=== PATIENT | female | born 1975 | race Caucasian/White ===

== ENCOUNTER 2018-01-29 19:37 | Inpatient (IN) | payer BC ==
[~2018-01-29] VITALS: Ht 170.2 cm; Wt 104.3 kg
[~2018-01-29 19:37] MED LIST: CAND32TA2 PO; CLON0.5T11 PO; CRESTOR10 MG PO; ELET20TA PO; INSU100I13 SQ; METO10TA81 PO; PREG50CA PO; QUIN1TAB13 PO; QUIN20TA17 PO; SERT50TA PO; WARF-78 PO
[2018-01-29 20:13] LABS: BILIRUBIN,URINE NEGATIVE (NEG); CLARITY,URINE CLEAR; COLOR,URINE YELLOW; NITRITE,URINE NEGATIVE (NEG); PROTEIN,URINE NEGATIVE (NEG-TRACE); UROBILINOGEN,URINE 0.2 mg/dL (0.2 mg/dL)
[2018-01-29] MEDS ORDERED: fentaNYL PF VIAL 100 MCG/2 ML VIAL IV ONE (20:15)
[2018-01-29 20:21] LABS: BACTERIA,URINE FEW /HPF (0-FEW); RBC,URINE 0 /HPF (0-2); SQUAMOUS EPITHELIAL CELL,UR MOD /LPF; WBC,URINE 0 /HPF (0-4)
--- NOTE | 2018-01-29 20:23 | PHYS DOC ---
Past Medical History Past Medical History: Diabetes-Type II, DVT, Hypertension Additional Past Medical Histor: PE/DVT, HEART MURMUR, Past Surgical History: Cholecystectomy, Tubal ligation Additional Past Surgical Histo: OVARIAN CYST,BILAT EARS,LEAP, LYMP NODES Alcohol Use: None Drug Use: None Adult General Chief Complaint Chief Complaint: ABDOMINAL PAIN HPI HPI Patient is a 42 year old female history of factor V Leiden deficiency present with abdominal pain. Onset 2 days ago she fell down 10 steps she went to [facility] her INR was 10.5 she is on Coumadin they give her vitamin K came down to 7.5 she says she had a CT head and CT C-spine that was negative acute and they observed her overnight and then sent her home but her abdominal pain is described as cramping diffuse bilateral lower quadrant radiates to the back also some pain with moving her left hip she said they did not do a CT scan on that area despite she did tell them she was having abdominal pain. The pain is getting worse with time so she came to the ER for evaluation. Review of Systems Review of Systems Constitutional: Denies fever or chills [] Eyes: Denies change in visual acuity, redness, or eye pain [] HENT: Denies nasal congestion or sore throat [] Respiratory: Denies cough or shortness of breath [] Cardiovascular: No additional information not addressed in HPI [] : Denies dysuria or hematuria [] Musculoskeletal Integument: Denies rash or skin lesions [] All other systems were reviewed and found to be within normal limits, except as documented in this note. Current Medications Current Medications Current Medications Medications (Trade) Dose Ordered Sig/Ricardo Start Time Stop Time Status Last Admin Dose Admin Fentanyl Citrate (Fentanyl 2ml Vial) 50 mcg 1X ONCE 01/29/18 20:15 01/29/18 20:16 DC 01/29/18 20:24 50 MCG Iohexol (Omnipaque 300 Mg/ml) 100 ml STK-MED ONCE 01/29/18 21:08 01/29/18 21:09 DC Metronidazole 100 ml @ 100 mls/hr 1X ONCE 01/29/18 22:30 01/29/18 23:29 01/29/18 23:04 100 MLS/HR Morphine Sulfate (Morphine Sulfate) 4 mg PRN Q2HR PRN 01/29/18 22:45 01/30/18 22:44 01/29/18 23:04 4 MG Phytonadione (Mephyton Oral Soln) 2.5 mg 1X ONCE 01/29/18 22:45 01/29/18 22:46 DC 01/29/18 23:05 2.5 MG Sodium Chloride 1,000 ml @ 100 mls/hr Q10H 01/29/18 22:45 01/30/18 22:44 Allergies Allergies Allergies Coded Allergies Type Severity Reaction Last Updated Verified acetaminophen Allergy Severe THROAT SWELLS 05/29/15 Yes propoxyphene Allergy Severe THROAT SWELLS 05/29/15 Yes Penicillins Allergy Intermediate HIVES 05/29/15 Yes Physical Exam Physical Exam Constitutional: Well developed, well nourished, no acute distress, non-toxic appearance. [] HENT: Normocephalic, atraumatic, bilateral external ears normal, oropharynx moist, no oral exudates, nose normal. [] Eyes: PERRLA, EOMI, conjunctiva normal, no discharge. [] Neck: Normal range of motion, left paraspinous tenderness, supple, no stridor. [ ] Cardiovascular:Heart rate regular rhythm, no murmur [] Lungs & Thorax: Bilateral breath sounds clear to auscultation [] Abdomen: Bowel sounds normal, soft,rlq and llq tenderness, no masses, no pulsatile masses. [] rectal performed by antique furniture reproducer showed brown stool. Skin: Warm, dry, no erythema, no rash. [] Back: pos b/l paraspinous ttp noted, no trauma seen. obese noted. Extremities: No tenderness, no cyanosis, no clubbing, ROM intact, no edema. [] mild pain with rom of the left hip but still intact. Neurologic: Alert and oriented X 3, normal motor function, normal sensory function, no focal deficits noted. [] Psychologic: Affect normal, judgement normal, mood normal. [] Current Patient Data Vital Signs Vital Signs Date Time Temp Pulse Resp B/P (MAP) Pulse Ox O2 Delivery O2 Flow Rate FiO2 01/29/18 20:07 98.2 92 20 167/114 (131) 97 Room Air 98.2 Lab Values Laboratory Tests Test 01/29/18 19:57 01/29/18 20:08 01/29/18 20:18 01/29/18 21:08 Urine Collection Type Unknown Urine Color Yellow Urine Clarity Clear Urine pH 5.0 Urine Specific [place] >=1.030 Urine Protein Negative mg/dL (NEG-TRACE) Urine Glucose (UA) >=1000 mg/dL (NEG) Urine Ketones (Stick) Negative mg/dL (NEG) Urine Blood Negative (NEG) Urine Nitrite Negative (NEG) Urine Bilirubin Negative (NEG) Urine Urobilinogen Dipstick 0.2 mg/dL (0.2 mg/dL) Urine Leukocyte Esterase Negative (NEG) Urine RBC 0 /HPF (0-2) Urine WBC 0 /HPF (0-4) Urine Squamous Epithelial Cells Mod /LPF Urine Bacteria Few /HPF (0-FEW) POC Urine HCG, Qualitative Hcg negative (Negative) White Blood Count 5.5 x10^3/uL (4.0-11.0) Red Blood Count 4.78 x10^6/uL (3.50-5.40) Hemoglobin 14.5 g/dL (12.0-15.5) Hematocrit 40.2 % (36.0-47.0) Mean Corpuscular Volume 84 fL (79-100) Mean Corpuscular Hemoglobin 30 pg (25-35) Mean Corpuscular Hemoglobin Concent 36 g/dL (31-37) Red Cell Distribution Width 13.3 % (11.5-14.5) Platelet Count 219 x10^3/uL (140-400) Neutrophils (%) (Auto) 60 % (31-73) Lymphocytes (%) (Auto) 31 % (24-48) Monocytes (%) (Auto) 7 % (0-9) Eosinophils (%) (Auto) 1 % (0-3) Basophils (%) (Auto) 1 % (0-3) Neutrophils # (Auto) 3.3 x10^3uL (1.8-7.7) Lymphocytes # (Auto) 1.7 x10^3/uL (1.0-4.8) Monocytes # (Auto) 0.4 x10^3/uL (0.0-1.1) Eosinophils # (Auto) 0.1 x10^3/uL (0.0-0.7) Basophils # (Auto) 0.1 x10^3/uL (0.0-0.2) Prothrombin Time 48.9 SEC (11.7-14.0) H Prothrombin Time INR 5.5 (0.8-1.1) *H Sodium Level 135 mmol/L (136-145) L Potassium Level 4.0 mmol/L (3.5-5.1) Chloride Level 99 mmol/L (98-107) Carbon Dioxide Level 25 mmol/L (21-32) Anion Gap 11 (6-14) Blood Urea Nitrogen 8 mg/dL (7-20) Creatinine 0.8 mg/dL (0.6-1.0) Estimated GFR (Cockcroft-Gault) 78.7 BUN/Creatinine Ratio 10 (6-20) Glucose Level 426 mg/dL (70-99) H Calcium Level 9.4 mg/dL (8.5-10.1) Total Bilirubin 0.2 mg/dL (0.2-1.0) Aspartate Amino Transferase (AST) 28 U/L (15-37) Alanine Aminotransferase (ALT) 63 U/L (14-59) H Alkaline Phosphatase 81 U/L (46-116) Total Protein 7.7 g/dL (6.4-8.2) Albumin 3.3 g/dL (3.4-5.0) L Albumin/Globulin Ratio 0.8 (1.0-1.7) L Lipase 183 U/L (73-393) Stool Occult Blood Positive (NEG) Laboratory Tests 01/29/18 20:18 Laboratory Tests 01/29/18 20:18 EKG EKG [] Radiology/Procedures Radiology/Procedures [] Impressions: FINDINGS: The liver and spleen and pancreas are normal. The gallbladder is surgically absent. No extra hepatic biliary ductal dilatation is seen. No adrenal mass is evident. Both kidneys are normal without hydronephrosis or hydroureter. Urinary bladder wall is smooth. No uterine mass is seen. No dominant ovarian cyst or mass is evident. No focal aneurysmal dilatation of the abdominal aorta is seen. No enlarged abdominal or pelvic lymphadenopathy is evident. No obstructive bowel pattern is evident. The terminal ileum is unremarkable. The appendix appears normal. There is segmental wall thickening of the descending colon and sigmoid colon. This may be due to incomplete distention but could be seen with colitis. No free intraperitoneal air or free fluid or mesenteric edema is seen. No lung base consolidation is evident. No osteolytic process is evident. No anterior abdominal wall musculature hematoma is evident. No retroperitoneal hematoma is evident. IMPRESSION: Segmental wall thickening of the descending colon and sigmoid colon. This may be due to incomplete distention but could be seen with colitis. No pneumatosis intestinalis or free air or free fluid or mesenteric edema is seen. The heart size mildly enlarged. Electronically signed by: Anurag Mosquera MD (01/29/2018 9:49 PM) [facility] 3. Use of iterative reconstruction technique Findings: No acute intracranial hemorrhage or midline shift or mass-effect or hydrocephalus or extra-axial fluid collection is seen. No focal hypodense area or sulci effacement is seen to indicate an acute infarct or edema radiographically. No skull fracture or pneumocephalus is seen. No opacification of the mastoid sinuses or the paranasal sinuses is seen. The maxillary sinuses are not completely seen in this study. Impression: No acute intracranial abnormality is seen. Electronically signed by: Anurag Mosquera MD (01/29/2018 9:09 PM) [facility] [id number] Course & Med Decision Making Course & Med Decision Making Pertinent Labs and Imaging studies reviewed. (See chart for details) []42-year-old female with history of factor V Leiden who is minor 5.5 apparently was 10.52 days ago she did fall down the stairs. She has been having abdominal pain since then but she also is having some bright red blood per rectum mixed in with brown stool she tells me. CT scan shows colitis most likely. Patient is hemodynamically stable hemoglobin is normal patient received antibiotics as well as a small dose of vitamin K in the emergency room because her INR is still 5.5 with her rectal bleeding even though mild I don't want to get worse. I think the benefit of a small amount of vitamin K especially in light of starting antibiotics which may affect her INR is beneficial. We'll admit to the service of Dr. jeter discussed case with him at 10:30 PM Tricia Disclaimer Tricia Disclaimer This electronic medical record was generated, in whole or in part, using a voice recognition dictation system. Departure Departure Impression: Primary Impression: Colitis Additional Impression: Coumadin toxicity Disposition: ADMITTED INPATIENT Admitting Physician: Other Condition: STABLE Referrals: UNKNOWN PCP NAME (PCP) Problem Qualifiers LAKESHIA KHAN MD Jan 29, 2018 20:23
[2018-01-29 20:29] LABS: BASO # 0.1 x10^3/uL (0.0-0.2); BASO % 1 % (0-3); EOS # 0.1 x10^3/uL (0.0-0.7); EOS % 1 % (0-3); HEMATOCRIT 40.2 % (36.0-47.0); HEMOGLOBIN 14.5 g/dL (12.0-15.5); LYMPH # 1.7 x10^3/uL (1.0-4.8); LYMPH % 31 % (24-48); MEAN CORPUSCULAR HEMOGLOBIN 30 pg (25-35); MEAN CORPUSCULAR HGB CONC 36 g/dL (31-37); MEAN CORPUSCULAR VOLUME 84 fL (79-100); MONO # 0.4 x10^3/uL (0.0-1.1); MONO % 7 % (0-9); NEUT # 3.3 x10^3uL (1.8-7.7); NEUT % 60 % (31-73); PLATELET COUNT 219 x10^3/uL (140-400); RED BLOOD COUNT 4.78 x10^6/uL (3.50-5.40); RED CELL DISTRIBUTION WIDTH 13.3 % (11.5-14.5); WHITE BLOOD COUNT 5.5 x10^3/uL (4.0-11.0)
[2018-01-29 20:36] LABS: CALCIUM 9.4 mg/dL (8.5-10.1); CREATININE 0.8 mg/dL (0.6-1.0); GFR 78.7
[2018-01-29 20:39] LABS: PROTHROMBIN TIME PATIENT 48.9 SEC (11.7-14.0)
[2018-01-29 20:42] LABS: ALBUMIN 3.3 g/dL (3.4-5.0); ALBUMIN/GLOBULIN RATIO 0.8 (1.0-1.7); TOTAL BILIRUBIN 0.2 mg/dL (0.2-1.0); TOTAL PROTEIN 7.7 g/dL (6.4-8.2)
[2018-01-29] MEDS ORDERED: IOHEXOL 300 MG/ML 100ML VIAL. ONE (21:08)
--- NOTE | 2018-01-29 21:12 | RAD ---
CT HEAD WO CONTRAST Clinical indications: PT FELL DOWN STAIRS; EVAL FOR BLEED COMPARISON: None available. Technique: Noncontrast axial cross sectional scanning of the head was performed. PQRS compliance Statement One or more of the following individualized dose reduction techniques were utilized for this study: 1. Automated exposure control 2. Adjustment of the mA and/or kV according to patient size 3. Use of iterative reconstruction technique Findings: No acute intracranial hemorrhage or midline shift or mass-effect or hydrocephalus or extra-axial fluid collection is seen. No focal hypodense area or sulci effacement is seen to indicate an acute infarct or edema radiographically. No skull fracture or pneumocephalus is seen. No opacification of the mastoid sinuses or the paranasal sinuses is seen. The maxillary sinuses are not completely seen in this study. Impression: No acute intracranial abnormality is seen. Electronically signed by: Anurag Mosquera MD (01/29/2018 9:09 PM) [id number]
[2018-01-29 21:21] LABS: FECAL OB PT POSITIVE (NEG)
--- NOTE | 2018-01-29 21:52 | RAD ---
CT study of the abdomen and pelvis with contrast Clinical indications: Patient fell down stairs. Abdominal pain. Bloody stools. On Coumadin. TECHNIQUE: After IV infusion of 75 cc of Omnipaque 300, helical CT scanning of abdomen and pelvis was performed. No GI contrast was administered. This may decrease the sensitivity to detect GI tract pathology. PQRS compliance Statement One or more of the following individualized dose reduction techniques were utilized for this study: 1. Automated exposure control 2. Adjustment of the mA and/or kV according to patient size 3. Use of iterative reconstruction technique COMPARISON: None available. FINDINGS: The liver and spleen and pancreas are normal. The gallbladder is surgically absent. No extra hepatic biliary ductal dilatation is seen. No adrenal mass is evident. Both kidneys are normal without hydronephrosis or hydroureter. Urinary bladder wall is smooth. No uterine mass is seen. No dominant ovarian cyst or mass is evident. No focal aneurysmal dilatation of the abdominal aorta is seen. No enlarged abdominal or pelvic lymphadenopathy is evident. No obstructive bowel pattern is evident. The terminal ileum is unremarkable. The appendix appears normal. There is segmental wall thickening of the descending colon and sigmoid colon. This may be due to incomplete distention but could be seen with colitis. No free intraperitoneal air or free fluid or mesenteric edema is seen. No lung base consolidation is evident. No osteolytic process is evident. No anterior abdominal wall musculature hematoma is evident. No retroperitoneal hematoma is evident. IMPRESSION: Segmental wall thickening of the descending colon and sigmoid colon. This may be due to incomplete distention but could be seen with colitis. No pneumatosis intestinalis or free air or free fluid or mesenteric edema is seen. The heart size mildly enlarged. Electronically signed by: Anurag Mosquera MD (01/29/2018 9:49 PM) [id number]
[2018-01-29] MEDS ORDERED: IV NORMAL SALINE 1000ML BAG 1,000 ML IV ONE (22:30)
[2018-01-29] MEDS ORDERED: PHYTONADIONE 10 MG/ML ORAL SOLUTION. PO ONE (22:45)
[2018-01-29] MEDS ORDERED: AZTREONAM 1 GM in IV DEXTROSE 5% 50 ML IV ONE (23:00)
[2018-01-29] MEDS: MORPHINE SULFATE 4 MG/ML VIAL. IV PRN (23:04)
--- NOTE | 2018-01-29 23:38 | PDOC1 ---
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 Onset 2 days ago, associated with blood in stool Pain is cramping, colicky diffuse bilateral upper quadrant radiates to the back also some pain with moving her left hip. Incidentally she fell down steps 2 days ago, went to [facility] her INR was 10.5 --> 7.5 with vitamin K, she says she had a CT head and CT C- spine that was negative acute and they observed her overnight. No CT scan abdomen despite the lower GI bleeding and pain being her secondary complaint. In ED CT showed possible inflammation, no leukocytosis, but ALT 63. Glucose was 426, lipase 183. Her INR was 5.5 and had positive occult blood in stool. Past Medical History Cardiovascular: No pertinent hx Pulmonary: No pertinent hx CENTRAL NERVOUS SYSTEM: Migraine GI: No pertinent hx Heme/Onc: Other (FV Leiden deficiency) Hepatobiliary: No pertinent hx Psych: No pertinent hx Rheumatologic: No pertinent hx Infectious disease: No pertinent hx ENT: No pertinent hx Renal/: No pertinent hx Endocrine: Diabetes Dermatology: No pertinent hx Past Surgical History Past Surgical History: Cholecystectomy, Tubal Ligation Family History Family History: Diabetes, High Cholestrol, Migranes Family History: Grandparents (FV leiden) Social History Smoke: No ALCOHOL: rare Drugs: None Current Problem List Problem List Problems Medical Problems: (1) Coumadin toxicity Status: Acute Current Medications Current Medications Current Medications Fentanyl Citrate (Fentanyl 2ml Vial) 50 mcg 1X ONCE IV Last administered on at 20:24; Start 01/29/18 at 20:15; Stop 01/29/18 at 20:16; Status DC Iohexol (Omnipaque 300 Mg/ml) 100 ml STK-MED ONCE .ROUTE ; Start 01/29/18 at 21: 08; Stop 01/29/18 at 21:09; Status DC Metronidazole 100 ml @ 100 mls/hr 1X ONCE IV Last administered on 01/29/18at 23:04; Start 01/29/18 at 22:30; Stop 01/29/18 at 23:29; Status DC Aztreonam 1 gm/ Dextrose 50 ml @ 100 mls/hr Q6HRS IV ; Start 01/30/18 at 06:00 Sodium Chloride 1,000 ml @ 1,000 mls/hr 1X ONCE IV Last administered on at 23:04; Start 01/29/18 at 22:30; Stop 01/29/18 at 23:29; Status DC Phytonadione (Mephyton Oral Soln) 2.5 mg 1X ONCE PO Last administered on at 23:05; Start 01/29/18 at 22:45; Stop 01/29/18 at 22:46; Status DC Morphine Sulfate (Morphine Sulfate) 4 mg PRN Q2HR PRN IV PAIN Last administered on 01/29/18at 23:04; Start 01/29/18 at 22:45; Stop 01/30/18 at 22:44 Sodium Chloride 1,000 ml @ 100 mls/hr Q10H IV ; Start 01/29/18 at 22:45; Stop 01/30/18 at 22:44 Aztreonam 1 gm/ Dextrose 50 ml @ 100 mls/hr ONCE ONCE IV ; Start 01/29/18 at 23:00; Stop 01/29/18 at 23:29; Status DC Active Scripts Active Reported Atacand (Candesartan Cilexetil) 32 Mg Tablet 1 Tab PO DAILY Quinapril-Hctz 10-12.5 Mg Tab (Quinapril/Hydrochlorothiazide) 1 Each Tablet 1 Each PO DAILY Relpax (Eletriptan Hbr) 20 Mg Tablet 20 Mg PO Reglan (Metoclopramide Hcl) 10 Mg Tablet 10 Mg PO TIDWMEALHC Lyrica (Pregabalin) 50 Mg Capsule 50 Mg PO BID Clonazepam 0.5 Mg Tablet 1 Tab PO DAILY Zoloft (Sertraline Hcl) 50 Mg Tablet 1 Tab PO DAILY Crestor (Rosuvastatin Calcium) 10 Mg Tablet 1 Tab PO DAILY Lantus Solostar (Insulin Glargine,Hum.rec.anlog) 100 Unit/1 Ml Insuln.pen 10 Unit SQ QHS Allergies Allergies: Coded Allergies: acetaminophen (Verified Allergy, Severe, THROAT SWELLS, 05/29/15) propoxyphene (Verified Allergy, Severe, THROAT SWELLS, 05/29/15) Penicillins (Verified Allergy, Intermediate, HIVES, 05/29/15) vancomycin (Verified Allergy, Unknown, 01/30/18) ROS General: No: Chills, Night Sweats, Fatigue, Malaise, Appetite, Other PSYCHOLOGICAL ROS: No: Anxiety, Behavioral Disorder, Concentration difficultie , Decreased libido, Depression, Disorientation, Hallucinations, Hostility, Irritablity, Memory difficulties, Mood Swings, Obsessive thoughts, Physical abuse, Sexual abuse, Sleep disturbances, Suicidal ideation, Other Eyes: No Blurry vision, No Decreased vision, No Double vision, No Dry eyes, No Excessive tearing, No Eye Pain, No Itchy Eyes, No Loss of vision, No Photophobia , No Scotomata, No Uses contacts, No Uses glasses, No Other HEENT: YES: Heacaches; No: Visual Changes, Hearing change, Nasal congestion, Nasal discharge, Oral lesions, Sinus pain, Sore Throat, Epistaxis, Sneezing, Snoring, Tinnitus, Vertigo, Vocal changes, Other ALLERGY AND IMMUNOLOGY: No: Hives, Insect Bite Sensitivity, Itchy/Watery Eyes, Nasal Congestion, Post Nasal Drip, Seasonal Allergies, Other Hematological and Lymphatic: YES: Bleeding Problems, Blood Clots; No: Blood Transfusions, Brusing, Night Sweats, Pallor, Swollen Lymph Nodes, Other ENDOCRINE: No: Breast Changes, Galactorrhea, Hair Pattern Changes, Hot Flashes , Malaise/lethargy, Mood Swings, Palpitations, Polydipsia/polyuria, Skin Changes , Temperature Intolerance, Unexpected Weight Changes, Other Breast: No New/Changing Breast Lumps, No Nipple changes, No Nipple discharge, No Other Respiratory: No: Cough, Hemoptysis, Orthopnea, Pleuritic Pain, Shortness of breath, SOB with excertion, Sputum Changes, Stridor, Tachypnea, Wheezing, Other Cardiovascular: No Chest Pain, No Palpitations, No Orthopnea, No Paroxysmal Noc. Dyspnea, No Edema, No Lt Headedness, No Other Gastrointestinal: Yes Nausea, Yes Abdominal Pain, Yes Melena, Yes Hematochezia Genitourinary: No Dysuria, No Frequency, No Incontinence, No Hematuria, No Retention, No Discharge, No Urgency, No Pain, No Flank Pain, No Other, No , No , No , No , No , No , No Musculoskeletal: No Gait Disturbance, No Joint Pain, No Joint Stiffness, No Joint Swelling, No Muscle Pain, No Muscular Weakness, No Pain In:, No Swelling In:, No Other Neurological: No Behavorial Changes, No Bowel/Bladder ControlChng, No Confusion , No Dizziness, No Gait Disturbance, No Headaches, No Impaired Coord/balance, No Memory Loss, No Numbness/Tingling, No Seizures, No Speech Problems, No Tremors, No Visual Changes, No Weakness, No Other Skin: No Dry Skin, No Eczema, No Hair Changes, No Lumps, No Mole Changes, No Mottling, No Nail Changes, No Pruritus, No Rash, No Skin Lesion Changes, No Other, No Acne Physical Exam General: Alert, Oriented X3, Cooperative, No acute distress HEENT: Atraumatic, PERRLA, EOMI, Mucous membr. moist/pink Lungs: Clear to auscultation, Normal air movement Heart: S1S2, RRR, no murmurs Breasts: Not examined Abdomen: Normal bowel sounds, Soft, Other (Tenderness in bilateral upper quadrants, epigastrium and LLQ) Extremities: No clubbing, No cyanosis, No edema, Normal pulses, No tenderness/ swelling Skin: No rashes, No breakdown, No significant lesion Neuro: Normal gait, Normal speech, Strength at 5/5 X4 ext, Normal tone, Sensation intact (Decreased pinprick consistent with diabetic neuropathy, early) , Cranial nerves 3-12 NL, Reflexes 2+ Psych/Mental Status: Mental status NL, Mood NL Vitals Vitals Vital Signs Date Time Temp Pulse Resp B/P (MAP) Pulse Ox O2 Delivery O2 Flow Rate FiO2 01/29/18 20:07 98.2 92 20 167/114 (131) 97 Room Air 98.2 Labs Labs Laboratory Tests Test 01/29/18 19:57 01/29/18 20:08 01/29/18 20:18 01/29/18 21:08 Urine Collection Type Unknown Urine Color Yellow Urine Clarity Clear Urine pH 5.0 Urine Specific [place] >=1.030 Urine Protein Negative mg/dL (NEG-TRACE) Urine Glucose (UA) >=1000 mg/dL (NEG) Urine Ketones (Stick) Negative mg/dL (NEG) Urine Blood Negative (NEG) Urine Nitrite Negative (NEG) Urine Bilirubin Negative (NEG) Urine Urobilinogen Dipstick 0.2 mg/dL (0.2 mg/dL) Urine Leukocyte Esterase Negative (NEG) Urine RBC 0 /HPF (0-2) Urine WBC 0 /HPF (0-4) Urine Squamous Epithelial Cells Mod /LPF Urine Bacteria Few /HPF (0-FEW) Bedside Urine HCG, Qualitative Hcg negative (Negative) White Blood Count 5.5 x10^3/uL (4.0-11.0) Red Blood Count 4.78 x10^6/uL (3.50-5.40) Hemoglobin 14.5 g/dL (12.0-15.5) Hematocrit 40.2 % (36.0-47.0) Mean Corpuscular Volume 84 fL (79-100) Mean Corpuscular Hemoglobin 30 pg (25-35) Mean Corpuscular Hemoglobin Concent 36 g/dL (31-37) Red Cell Distribution Width 13.3 % (11.5-14.5) Platelet Count 219 x10^3/uL (140-400) Neutrophils (%) (Auto) 60 % (31-73) Lymphocytes (%) (Auto) 31 % (24-48) Monocytes (%) (Auto) 7 % (0-9) Eosinophils (%) (Auto) 1 % (0-3) Basophils (%) (Auto) 1 % (0-3) Neutrophils # (Auto) 3.3 x10^3uL (1.8-7.7) Lymphocytes # (Auto) 1.7 x10^3/uL (1.0-4.8) Monocytes # (Auto) 0.4 x10^3/uL (0.0-1.1) Eosinophils # (Auto) 0.1 x10^3/uL (0.0-0.7) Basophils # (Auto) 0.1 x10^3/uL (0.0-0.2) Prothrombin Time 48.9 SEC (11.7-14.0) Prothromb Time International Ratio 5.5 (0.8-1.1) Sodium Level 135 mmol/L (136-145) Potassium Level 4.0 mmol/L (3.5-5.1) Chloride Level 99 mmol/L (98-107) Carbon Dioxide Level 25 mmol/L (21-32) Anion Gap 11 (6-14) Blood Urea Nitrogen 8 mg/dL (7-20) Creatinine 0.8 mg/dL (0.6-1.0) Estimated GFR (Cockcroft-Gault) 78.7 BUN/Creatinine Ratio 10 (6-20) Glucose Level 426 mg/dL (70-99) Calcium Level 9.4 mg/dL (8.5-10.1) Total Bilirubin 0.2 mg/dL (0.2-1.0) Aspartate Amino Transf (AST/SGOT) 28 U/L (15-37) Alanine Aminotransferase (ALT/SGPT) 63 U/L (14-59) Alkaline Phosphatase 81 U/L (46-116) Total Protein 7.7 g/dL (6.4-8.2) Albumin 3.3 g/dL (3.4-5.0) Albumin/Globulin Ratio 0.8 (1.0-1.7) Lipase 183 U/L (73-393) Stool Occult Blood Positive (NEG) Laboratory Tests Test 01/29/18 19:57 01/29/18 20:08 01/29/18 20:18 01/29/18 21:08 Urine Collection Type Unknown Urine Color Yellow Urine Clarity Clear Urine pH 5.0 Urine Specific [place] >=1.030 Urine Protein Negative mg/dL (NEG-TRACE) Urine Glucose (UA) >=1000 mg/dL (NEG) Urine Ketones (Stick) Negative mg/dL (NEG) Urine Blood Negative (NEG) Urine Nitrite Negative (NEG) Urine Bilirubin Negative (NEG) Urine Urobilinogen Dipstick 0.2 mg/dL (0.2 mg/dL) Urine Leukocyte Esterase Negative (NEG) Urine RBC 0 /HPF (0-2) Urine WBC 0 /HPF (0-4) Urine Squamous Epithelial Cells Mod /LPF Urine Bacteria Few /HPF (0-FEW) Bedside Urine HCG, Qualitative Hcg negative (Negative) White Blood Count 5.5 x10^3/uL (4.0-11.0) Red Blood Count 4.78 x10^6/uL (3.50-5.40) Hemoglobin 14.5 g/dL (12.0-15.5) Hematocrit 40.2 % (36.0-47.0) Mean Corpuscular Volume 84 fL (79-100) Mean Corpuscular Hemoglobin 30 pg (25-35) Mean Corpuscular Hemoglobin Concent 36 g/dL (31-37) Red Cell Distribution Width 13.3 % (11.5-14.5) Platelet Count 219 x10^3/uL (140-400) Neutrophils (%) (Auto) 60 % (31-73) Lymphocytes (%) (Auto) 31 % (24-48) Monocytes (%) (Auto) 7 % (0-9) Eosinophils (%) (Auto) 1 % (0-3) Basophils (%) (Auto) 1 % (0-3) Neutrophils # (Auto) 3.3 x10^3uL (1.8-7.7) Lymphocytes # (Auto) 1.7 x10^3/uL (1.0-4.8) Monocytes # (Auto) 0.4 x10^3/uL (0.0-1.1) Eosinophils # (Auto) 0.1 x10^3/uL (0.0-0.7) Basophils # (Auto) 0.1 x10^3/uL (0.0-0.2) Prothrombin Time 48.9 SEC (11.7-14.0) Prothromb Time International Ratio 5.5 (0.8-1.1) Sodium Level 135 mmol/L (136-145) Potassium Level 4.0 mmol/L (3.5-5.1) Chloride Level 99 mmol/L (98-107) Carbon Dioxide Level 25 mmol/L (21-32) Anion Gap 11 (6-14) Blood Urea Nitrogen 8 mg/dL (7-20) Creatinine 0.8 mg/dL (0.6-1.0) Estimated GFR (Cockcroft-Gault) 78.7 BUN/Creatinine Ratio 10 (6-20) Glucose Level 426 mg/dL (70-99) Calcium Level 9.4 mg/dL (8.5-10.1) Total Bilirubin 0.2 mg/dL (0.2-1.0) Aspartate Amino Transf (AST/SGOT) 28 U/L (15-37) Alanine Aminotransferase (ALT/SGPT) 63 U/L (14-59) Alkaline Phosphatase 81 U/L (46-116) Total Protein 7.7 g/dL (6.4-8.2) Albumin 3.3 g/dL (3.4-5.0) Albumin/Globulin Ratio 0.8 (1.0-1.7) Lipase 183 U/L (73-393) Stool Occult Blood Positive (NEG) Images Images CT abdomen - Segmental wall thickening of the descending colon and sigmoid colon. This may be due to incomplete distention but could be seen with colitis. No pneumatosis intestinalis or free air or free fluid or mesenteric edema is seen. VTE Prophylaxis Ordered VTE Prophylaxis Devices: Yes VTE Pharmacological Prophylaxi: Yes Assessment/Plan Assessment/Plan A/P: Abdominal Pain - likely colitis on CT, will treat as infectious, cipro + flagyl. Was given aztreonam as she stated she is allergic to multiple antibiotics and records were incomplete. Will consult GI as there is a LGIB as well Acute blood loss - LGIB apparently based on BRBPR for days. Hb stable, VS stable. Will consult GI, repeat CBC Migraines - currently with BENITEZ, will use imitrex prn, toradol 15mg, compazine prn DM - with A1c of 12.6, only had diagnosis for 4 years, on metformin and insulin. Will cont and add sliding scale and meal coverage FV leiden - with h/o multiple PE, will need to continue coumadin therapy with goal INR 2-3 Supratherapeutic INR - will monitor daily, as she had GI bleeding was given vitamin K in ED Fall - CT head negative, will treat headache Transaminitis - likely related to hyperglycemia/fatty liver, but will check TSH , consider iron studies FEN - ADA diet PPX - coumadin FULL CODE Inpatient for at least 2 midnights for her GI bleed and colitis JAXSON FLORES MD Jan 29, 2018 23:38
[2018-01-29 23:55] VITALS: BP 159/88
[2018-01-30] MEDS: IV NORMAL SALINE 1000ML BAG 1,000 ML IV SCH ×3 (00:06→17:18)
[2018-01-30] MEDS ORDERED: DEXTROSE 50% 25 GM / 50ML DISP.SYRIN. IV PRN (01:00)
[2018-01-30] MEDS ORDERED: SUMAtriptan SUCCINATE 100 MG TABLET PO PRN (01:00)
[2018-01-30] MEDS ORDERED: PROCHLORPERAZINE 10 MG/2 ML VIAL. IV PRN (01:00)
[2018-01-30] MEDS ORDERED: LACTULOSE 20 GM/30 ML SOLUTION. PO PRN (01:00)
[2018-01-30] MEDS: INSULIN GLARGINE 300 UNITS/3 ML INSULN.PEN. SQ SCH ×2 (01:15→20:48)
[2018-01-30] MEDS: CIPROFLOXACIN 200MG PREMIX 100 ML IV SCH ×3 (01:30→20:49)
[2018-01-30] MEDS: KETOROLAC 15 MG/ML VIAL. IV PRN ×3 (01:31→16:51)
[2018-01-30] MEDS: MORPHINE SULFATE 4 MG/ML VIAL. IV PRN ×5 (01:32→20:41)
[2018-01-30 03:00] VITALS: BP 120/63
[2018-01-30] MEDS ORDERED: IOHEXOL 300 MG/ML 100ML VIAL. ONE (03:45)
[2018-01-30] MEDS ORDERED: AZTREONAM 1 GM in IV DEXTROSE 5% 50 ML IV SCH (06:00)
[2018-01-30 07:00] VITALS: BP 98/41
--- NOTE | 2018-01-30 07:14 | PDOC ---
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 Onset 2 days ago, associated with blood in stool Pain is cramping, colicky diffuse bilateral upper quadrant radiates to the back also some pain with moving her left hip. Her INR was 6.2 this morning and had positive occult blood in stool. Still with pain, feels it is somewhat improved. Blood sugar has been difficult, apparently missed scheduled insulin last night, catching up today. A/P: Abdominal Pain - likely colitis on CT, will treat as infectious, cipro + flagyl. Was given aztreonam as she stated she is allergic to multiple antibiotics and records were incomplete. Will consult GI as there is a LGIB as well Acute blood loss - LGIB apparently based on BRBPR for days. Hb stable, VS stable. Will consult GI, repeat CBC Migraines - currently with BENITEZ, will use imitrex prn, toradol 15mg, compazine prn DM - with A1c of 12.6, only had diagnosis for 4 years, on metformin and insulin. Will cont and add sliding scale and meal coverage FV leiden - with h/o multiple PE, will need to continue coumadin therapy with goal INR 2-3 Supratherapeutic INR - will monitor daily, as she had GI bleeding was given vitamin K in ED Fall - CT head negative, will treat headache Transaminitis - likely related to hyperglycemia/fatty liver, TSH 4.7, consider iron studies FEN - ADA diet PPX - coumadin FULL CODE Inpatient for at least 2 midnights for her GI bleed and colitis Vitals Vitals Vital Signs Date Time Temp Pulse Resp B/P (MAP) Pulse Ox O2 Delivery O2 Flow Rate FiO2 01/30/18 06:11 20 93 Room Air 01/30/18 03:00 97.8 68 120/63 (82) 97.8 Physical Exam General: Alert, Oriented X3, Cooperative, No acute distress Abdomen: Normal bowel sounds, Soft, Other (Tenderness in bilateral upper quadrants, epigastrium and LLQ) Extremities: No clubbing, No cyanosis, No edema, Normal pulses, No tenderness/ swelling Skin: No rashes, No breakdown, No significant lesion Labs LABS Laboratory Tests Test 01/29/18 19:57 01/29/18 20:08 01/29/18 20:18 01/29/18 21:08 Urine Collection Type Unknown Urine Color Yellow Urine Clarity Clear Urine pH 5.0 Urine Specific Royal >=1.030 Urine Protein Negative mg/dL (NEG-TRACE) Urine Glucose (UA) >=1000 mg/dL (NEG) Urine Ketones (Stick) Negative mg/dL (NEG) Urine Blood Negative (NEG) Urine Nitrite Negative (NEG) Urine Bilirubin Negative (NEG) Urine Urobilinogen Dipstick 0.2 mg/dL (0.2 mg/dL) Urine Leukocyte Esterase Negative (NEG) Urine RBC 0 /HPF (0-2) Urine WBC 0 /HPF (0-4) Urine Squamous Epithelial Cells Mod /LPF Urine Bacteria Few /HPF (0-FEW) Bedside Urine HCG, Qualitative Hcg negative (Negative) White Blood Count 5.5 x10^3/uL (4.0-11.0) Red Blood Count 4.78 x10^6/uL (3.50-5.40) Hemoglobin 14.5 g/dL (12.0-15.5) Hematocrit 40.2 % (36.0-47.0) Mean Corpuscular Volume 84 fL (79-100) Mean Corpuscular Hemoglobin 30 pg (25-35) Mean Corpuscular Hemoglobin Concent 36 g/dL (31-37) Red Cell Distribution Width 13.3 % (11.5-14.5) Platelet Count 219 x10^3/uL (140-400) Neutrophils (%) (Auto) 60 % (31-73) Lymphocytes (%) (Auto) 31 % (24-48) Monocytes (%) (Auto) 7 % (0-9) Eosinophils (%) (Auto) 1 % (0-3) Basophils (%) (Auto) 1 % (0-3) Neutrophils # (Auto) 3.3 x10^3uL (1.8-7.7) Lymphocytes # (Auto) 1.7 x10^3/uL (1.0-4.8) Monocytes # (Auto) 0.4 x10^3/uL (0.0-1.1) Eosinophils # (Auto) 0.1 x10^3/uL (0.0-0.7) Basophils # (Auto) 0.1 x10^3/uL (0.0-0.2) Prothrombin Time 48.9 SEC (11.7-14.0) Prothromb Time International Ratio 5.5 (0.8-1.1) Sodium Level 135 mmol/L (136-145) Potassium Level 4.0 mmol/L (3.5-5.1) Chloride Level 99 mmol/L (98-107) Carbon Dioxide Level 25 mmol/L (21-32) Anion Gap 11 (6-14) Blood Urea Nitrogen 8 mg/dL (7-20) Creatinine 0.8 mg/dL (0.6-1.0) Estimated GFR (Cockcroft-Gault) 78.7 BUN/Creatinine Ratio 10 (6-20) Glucose Level 426 mg/dL (70-99) Calcium Level 9.4 mg/dL (8.5-10.1) Total Bilirubin 0.2 mg/dL (0.2-1.0) Aspartate Amino Transf (AST/SGOT) 28 U/L (15-37) Alanine Aminotransferase (ALT/SGPT) 63 U/L (14-59) Alkaline Phosphatase 81 U/L (46-116) Total Protein 7.7 g/dL (6.4-8.2) Albumin 3.3 g/dL (3.4-5.0) Albumin/Globulin Ratio 0.8 (1.0-1.7) Lipase 183 U/L (73-393) Stool Occult Blood Positive (NEG) Assessment and Plan Assessmemt and Plan Problems Medical Problems: (1) Coumadin toxicity Status: Acute Comment Review of Relevant I have reviewed the following items tasha (where applicable) has been applied. Labs Laboratory Tests Test 01/29/18 19:57 01/29/18 20:08 01/29/18 20:18 01/29/18 21:08 Urine Collection Type Unknown Urine Color Yellow Urine Clarity Clear Urine pH 5.0 Urine Specific Royal >=1.030 Urine Protein Negative mg/dL (NEG-TRACE) Urine Glucose (UA) >=1000 mg/dL (NEG) Urine Ketones (Stick) Negative mg/dL (NEG) Urine Blood Negative (NEG) Urine Nitrite Negative (NEG) Urine Bilirubin Negative (NEG) Urine Urobilinogen Dipstick 0.2 mg/dL (0.2 mg/dL) Urine Leukocyte Esterase Negative (NEG) Urine RBC 0 /HPF (0-2) Urine WBC 0 /HPF (0-4) Urine Squamous Epithelial Cells Mod /LPF Urine Bacteria Few /HPF (0-FEW) Bedside Urine HCG, Qualitative Hcg negative (Negative) White Blood Count 5.5 x10^3/uL (4.0-11.0) Red Blood Count 4.78 x10^6/uL (3.50-5.40) Hemoglobin 14.5 g/dL (12.0-15.5) Hematocrit 40.2 % (36.0-47.0) Mean Corpuscular Volume 84 fL (79-100) Mean Corpuscular Hemoglobin 30 pg (25-35) Mean Corpuscular Hemoglobin Concent 36 g/dL (31-37) Red Cell Distribution Width 13.3 % (11.5-14.5) Platelet Count 219 x10^3/uL (140-400) Neutrophils (%) (Auto) 60 % (31-73) Lymphocytes (%) (Auto) 31 % (24-48) Monocytes (%) (Auto) 7 % (0-9) Eosinophils (%) (Auto) 1 % (0-3) Basophils (%) (Auto) 1 % (0-3) Neutrophils # (Auto) 3.3 x10^3uL (1.8-7.7) Lymphocytes # (Auto) 1.7 x10^3/uL (1.0-4.8) Monocytes # (Auto) 0.4 x10^3/uL (0.0-1.1) Eosinophils # (Auto) 0.1 x10^3/uL (0.0-0.7) Basophils # (Auto) 0.1 x10^3/uL (0.0-0.2) Prothrombin Time 48.9 SEC (11.7-14.0) Prothromb Time International Ratio 5.5 (0.8-1.1) Sodium Level 135 mmol/L (136-145) Potassium Level 4.0 mmol/L (3.5-5.1) Chloride Level 99 mmol/L (98-107) Carbon Dioxide Level 25 mmol/L (21-32) Anion Gap 11 (6-14) Blood Urea Nitrogen 8 mg/dL (7-20) Creatinine 0.8 mg/dL (0.6-1.0) Estimated GFR (Cockcroft-Gault) 78.7 BUN/Creatinine Ratio 10 (6-20) Glucose Level 426 mg/dL (70-99) Calcium Level 9.4 mg/dL (8.5-10.1) Total Bilirubin 0.2 mg/dL (0.2-1.0) Aspartate Amino Transf (AST/SGOT) 28 U/L (15-37) Alanine Aminotransferase (ALT/SGPT) 63 U/L (14-59) Alkaline Phosphatase 81 U/L (46-116) Total Protein 7.7 g/dL (6.4-8.2) Albumin 3.3 g/dL (3.4-5.0) Albumin/Globulin Ratio 0.8 (1.0-1.7) Lipase 183 U/L (73-393) Stool Occult Blood Positive (NEG) Laboratory Tests Test 01/29/18 19:57 01/29/18 20:08 01/29/18 20:18 01/29/18 21:08 Urine Collection Type Unknown Urine Color Yellow Urine Clarity Clear Urine pH 5.0 Urine Specific Royal >=1.030 Urine Protein Negative mg/dL (NEG-TRACE) Urine Glucose (UA) >=1000 mg/dL (NEG) Urine Ketones (Stick) Negative mg/dL (NEG) Urine Blood Negative (NEG) Urine Nitrite Negative (NEG) Urine Bilirubin Negative (NEG) Urine Urobilinogen Dipstick 0.2 mg/dL (0.2 mg/dL) Urine Leukocyte Esterase Negative (NEG) Urine RBC 0 /HPF (0-2) Urine WBC 0 /HPF (0-4) Urine Squamous Epithelial Cells Mod /LPF Urine Bacteria Few /HPF (0-FEW) Bedside Urine HCG, Qualitative Hcg negative (Negative) White Blood Count 5.5 x10^3/uL (4.0-11.0) Red Blood Count 4.78 x10^6/uL (3.50-5.40) Hemoglobin 14.5 g/dL (12.0-15.5) Hematocrit 40.2 % (36.0-47.0) Mean Corpuscular Volume 84 fL (79-100) Mean Corpuscular Hemoglobin 30 pg (25-35) Mean Corpuscular Hemoglobin Concent 36 g/dL (31-37) Red Cell Distribution Width 13.3 % (11.5-14.5) Platelet Count 219 x10^3/uL (140-400) Neutrophils (%) (Auto) 60 % (31-73) Lymphocytes (%) (Auto) 31 % (24-48) Monocytes (%) (Auto) 7 % (0-9) Eosinophils (%) (Auto) 1 % (0-3) Basophils (%) (Auto) 1 % (0-3) Neutrophils # (Auto) 3.3 x10^3uL (1.8-7.7) Lymphocytes # (Auto) 1.7 x10^3/uL (1.0-4.8) Monocytes # (Auto) 0.4 x10^3/uL (0.0-1.1) Eosinophils # (Auto) 0.1 x10^3/uL (0.0-0.7) Basophils # (Auto) 0.1 x10^3/uL (0.0-0.2) Prothrombin Time 48.9 SEC (11.7-14.0) Prothromb Time International Ratio 5.5 (0.8-1.1) Sodium Level 135 mmol/L (136-145) Potassium Level 4.0 mmol/L (3.5-5.1) Chloride Level 99 mmol/L (98-107) Carbon Dioxide Level 25 mmol/L (21-32) Anion Gap 11 (6-14) Blood Urea Nitrogen 8 mg/dL (7-20) Creatinine 0.8 mg/dL (0.6-1.0) Estimated GFR (Cockcroft-Gault) 78.7 BUN/Creatinine Ratio 10 (6-20) Glucose Level 426 mg/dL (70-99) Calcium Level 9.4 mg/dL (8.5-10.1) Total Bilirubin 0.2 mg/dL (0.2-1.0) Aspartate Amino Transf (AST/SGOT) 28 U/L (15-37) Alanine Aminotransferase (ALT/SGPT) 63 U/L (14-59) Alkaline Phosphatase 81 U/L (46-116) Total Protein 7.7 g/dL (6.4-8.2) Albumin 3.3 g/dL (3.4-5.0) Albumin/Globulin Ratio 0.8 (1.0-1.7) Lipase 183 U/L (73-393) Stool Occult Blood Positive (NEG) Medications Current Medications Fentanyl Citrate (Fentanyl 2ml Vial) 50 mcg 1X ONCE IV Last administered on at 20:24; Start 01/29/18 at 20:15; Stop 01/29/18 at 20:16; Status DC Iohexol (Omnipaque 300 Mg/ml) 100 ml STK-MED ONCE .ROUTE ; Start 01/29/18 at 21: 08; Stop 01/29/18 at 21:09; Status DC Metronidazole 100 ml @ 100 mls/hr 1X ONCE IV Last administered on 01/29/18at 23:04; Start 01/29/18 at 22:30; Stop 01/29/18 at 23:29; Status DC Aztreonam 1 gm/ Dextrose 50 ml @ 100 mls/hr Q6HRS IV ; Start 01/30/18 at 06:00 ; Stop 01/30/18 at 06:00; Status DC Sodium Chloride 1,000 ml @ 1,000 mls/hr 1X ONCE IV Last administered on at 23:04; Start 01/29/18 at 22:30; Stop 01/29/18 at 23:29; Status DC Phytonadione (Mephyton Oral Soln) 2.5 mg 1X ONCE PO Last administered on at 23:05; Start 01/29/18 at 22:45; Stop 01/29/18 at 22:46; Status DC Morphine Sulfate (Morphine Sulfate) 4 mg PRN Q2HR PRN IV PAIN Last administered on 01/30/18at 06:11; Start 01/29/18 at 22:45; Stop 01/30/18 at 22:44 Sodium Chloride 1,000 ml @ 100 mls/hr Q10H IV Last administered on 01/30/18at 00:06; Start 01/29/18 at 22:45; Stop 01/30/18 at 22:44 Aztreonam 1 gm/ Dextrose 50 ml @ 100 mls/hr ONCE ONCE IV Last administered on 01/30/18at 00:11; Start 01/29/18 at 23:00; Stop 01/29/18 at 23:29; Status DC Ondansetron HCl (Zofran) 4 mg PRN Q6HRS PRN IV NAUSEA/VOMITING; Start 01/30/18 at 01:00 Prochlorperazine Edisylate (Compazine) 10 mg PRN Q6HRS PRN IV NAUSEA/VOMITING; Start 01/30/18 at 01:00 Oxycodone HCl (Roxicodone) 5 mg PRN Q3HRS PRN PO BREAKTHROUGH PAIN; Start 01/30 at 01:00 Ketorolac Tromethamine (Toradol 15mg Vial) 15 mg PRN Q6HRS PRN IV PAIN Last administered on 01/30/18at 01:31; Start 01/30/18 at 01:00; Stop 02/04/18 at 00:59 Lactulose (Lactulose) 20 gm PRN Q12HR PRN PO CONSTIPATION; Start 01/30/18 at 01 :00 Insulin Human Lispro (HumaLOG) 0-9 UNITS TIDWMEALS SQ ; Start 01/30/18 at 08:00 Dextrose (Dextrose 50%-Water Syringe) 12.5 gm PRN Q15MIN PRN IV SEE COMMENTS; Start 01/30/18 at 01:00 Clonazepam (KlonoPIN) 0.5 mg DAILY PO ; Start 01/30/18 at 09:00 Insulin Glargine (Lantus) 12 units QHS SQ ; Start 01/30/18 at 01:15 Pregabalin (Lyrica) 50 mg BID PO ; Start 01/30/18 at 09:00 Sertraline HCl (Zoloft) 50 mg DAILY PO ; Start 01/30/18 at 09:00 Losartan Potassium (Cozaar) 100 mg DAILY PO ; Start 01/30/18 at 09:00 Non-Formulary Medication (Quinapril/ Hydrochlorothiazide (Quinapril-Hctz 10- 12.5 Mg Tab)) 1 each DAILY PO ; Start 01/30/18 at 09:00; Status UNV Atorvastatin Calcium (Lipitor) 40 mg HS PO ; Start 01/30/18 at 21:00 Sumatriptan Succinate (Imitrex) 100 mg PRN Q2HR PRN PO MIGRAINE HEADACHE; Start 01/30/18 at 01:00 Metronidazole 100 ml @ 100 mls/hr Q8HRS IV Last administered on 01/30/18at 06: 12; Start 01/30/18 at 06:00 Ciprofloxacin/ Dextrose 100 ml @ 100 mls/hr Q12HR IV Last administered on 01/30at 01:30; Start 01/30/18 at 01:30 Lisinopril (Prinivil) 10 mg DAILY PO ; Start 01/30/18 at 09:00 Hydrochlorothiazide (Microzide) 12.5 mg DAILY PO ; Start 01/30/18 at 09:00 Iohexol (Omnipaque 300 Mg/ml) 100 ml STK-MED ONCE .ROUTE ; Start 01/30/18 at 03: 45; Stop 01/30/18 at 03:46; Status DC Active Scripts Active Reported Atacand (Candesartan Cilexetil) 32 Mg Tablet 1 Tab PO DAILY Quinapril-Hctz 10-12.5 Mg Tab (Quinapril/Hydrochlorothiazide) 1 Each Tablet 1 Each PO DAILY Relpax (Eletriptan Hbr) 20 Mg Tablet 20 Mg PO Reglan (Metoclopramide Hcl) 10 Mg Tablet 10 Mg PO TIDWMEALHC Lyrica (Pregabalin) 50 Mg Capsule 50 Mg PO BID Clonazepam 0.5 Mg Tablet 1 Tab PO DAILY Zoloft (Sertraline Hcl) 50 Mg Tablet 1 Tab PO DAILY Crestor (Rosuvastatin Calcium) 10 Mg Tablet 1 Tab PO DAILY Lantus Solostar (Insulin Glargine,Hum.rec.anlog) 100 Unit/1 Ml Insuln.pen 10 Unit SQ QHS Vitals/I & O Vital Sign - Last 24 Hours 01/29/18 01/29/18 01/29/18 01/29/18 20:07 20:54 21:00 22:00 Temp 98.2 98.2 Pulse 92 90 72 Resp 20 16 16 B/P (MAP) 167/114 (131) 148/105 (119) 109/53 (71) Pulse Ox 97 100 100 O2 Delivery Room Air clearing fo Sofy Room Air Room Air 01/29/18 01/29/18 01/29/18 01/29/18 22:30 23:00 23:30 23:30 Pulse 72 76 70 Resp 16 16 16 B/P (MAP) 114/56 (75) 117/65 (82) 125/78 (94) Pulse Ox 100 100 97 100 O2 Delivery Room Air Room Air Room Air 01/29/18 01/29/18 01/30/18 01/30/18 23:45 23:55 01:32 02:02 Temp 98.0 98.0 Pulse 80 79 Resp 16 18 20 20 B/P (MAP) 126/69 (88) 159/88 (111) Pulse Ox 100 97 100 O2 Delivery Room Air Room Air Room Air Room Air 01/30/18 01/30/18 01/30/18 02:07 03:00 06:11 Temp 97.8 97.8 Pulse 68 Resp 18 20 B/P (MAP) 120/63 (82) Pulse Ox 93 93 O2 Delivery Room Air Room Air Room Air Intake and Output 01/29/18 01/29/18 01/30/18 15:00 23:00 07:00 Intake Total 200 ml Balance 200 ml JAXSON FLORES MD Jan 30, 2018 07:14
[2018-01-30 07:53] LABS: PROTHROMBIN TIME PATIENT 54.1 SEC (11.7-14.0)
[2018-01-30] MEDS: INSULIN LISPRO 300 UNITS/3 ML INSULN.PEN. SQ SCH ×3 (08:00→16:56)
[2018-01-30 08:07] LABS: ALBUMIN 2.9 g/dL (3.4-5.0); ALBUMIN/GLOBULIN RATIO 0.8 (1.0-1.7); CALCIUM 8.6 mg/dL (8.5-10.1); CREATININE 0.6 mg/dL (0.6-1.0); GFR 109.6; TOTAL BILIRUBIN 0.3 mg/dL (0.2-1.0); TOTAL PROTEIN 6.5 g/dL (6.4-8.2)
[2018-01-30] MEDS ORDERED: INSULIN GLARGINE 300 UNITS/3 ML INSULN.PEN. SQ ONE (09:00)
[2018-01-30] MEDS ORDERED: INSULIN LISPRO 300 UNITS/3 ML INSULN.PEN. SQ ONE ×2 (09:00→23:00)
[2018-01-30] MEDS ORDERED: QUINAPRIL PO SCH (09:00)
[2018-01-30] MEDS ORDERED: [UNRECOGNIZED DRUG - OTHER] PO SCH (09:00)
[2018-01-30] MEDS ORDERED: clonazePAM 0.5 MG TABLET PO SCH (09:00)
[2018-01-30] MEDS ORDERED: HYDROCHLOROTHIAZIDE PO SCH (09:00)
[2018-01-30] MEDS: LOSARTAN POTASSIUM 50 MG TABLET. PO SCH (09:09)
[2018-01-30] MEDS: PREGABALIN 50 MG CAPSULE PO SCH ×2 (09:10→20:41)
[2018-01-30] MEDS: LISINOPRIL 10 MG TABLET PO SCH (09:11)
[2018-01-30] MEDS: hydroCHLOROthiazide 12.5 MG CAPSULE PO SCH (09:11)
[2018-01-30] MEDS: SERTRALINE 50 MG TABLET. PO SCH (09:12)
[2018-01-30 11:00] VITALS: BP 108/52
--- NOTE | 2018-01-30 12:55 | PDOC2 ---
CONSULT Date of Consult Date of Consult DATE: 01/30/18 TIME: 12:52 Reason for Consult Reason for Consult: LLQ abd pain/abnl CT scan Past Medical History Cardiovascular: No pertinent hx Pulmonary: No pertinent hx CENTRAL NERVOUS SYSTEM: Migraine GI: No pertinent hx Heme/Onc: Other (FV Leiden deficiency) Hepatobiliary: No pertinent hx Psych: No pertinent hx Rheumatologic: No pertinent hx Infectious disease: No pertinent hx ENT: No pertinent hx Renal/: No pertinent hx Endocrine: Diabetes Dermatology: No pertinent hx Past Surgical History Past Surgical History: Cholecystectomy, Tubal Ligation Family History Family History: Diabetes, High Cholestrol, Migranes Social History Social History: Grandparents (FV leiden) No ALCOHOL: rare Drugs: None Current Problem List Problem List Problems Medical Problems: (1) Coumadin toxicity Status: Acute Current Medications Current Medications Current Medications Fentanyl Citrate (Fentanyl 2ml Vial) 50 mcg 1X ONCE IV Last administered on at 20:24; Start 01/29/18 at 20:15; Stop 01/29/18 at 20:16; Status DC Iohexol (Omnipaque 300 Mg/ml) 100 ml STK-MED ONCE .ROUTE ; Start 01/29/18 at 21: 08; Stop 01/29/18 at 21:09; Status DC Metronidazole 100 ml @ 100 mls/hr 1X ONCE IV Last administered on 01/29/18at 23:04; Start 01/29/18 at 22:30; Stop 01/29/18 at 23:29; Status DC Aztreonam 1 gm/ Dextrose 50 ml @ 100 mls/hr Q6HRS IV ; Start 01/30/18 at 06:00 ; Stop 01/30/18 at 06:00; Status DC Sodium Chloride 1,000 ml @ 1,000 mls/hr 1X ONCE IV Last administered on at 23:04; Start 01/29/18 at 22:30; Stop 01/29/18 at 23:29; Status DC Phytonadione (Mephyton Oral Soln) 2.5 mg 1X ONCE PO Last administered on at 23:05; Start 01/29/18 at 22:45; Stop 01/29/18 at 22:46; Status DC Morphine Sulfate (Morphine Sulfate) 4 mg PRN Q2HR PRN IV PAIN Last administered on 01/30/18at 10:13; Start 01/29/18 at 22:45; Stop 01/30/18 at 22:44 Sodium Chloride 1,000 ml @ 100 mls/hr Q10H IV Last administered on 01/30/18at 09:12; Start 01/29/18 at 22:45; Stop 01/30/18 at 22:44 Aztreonam 1 gm/ Dextrose 50 ml @ 100 mls/hr ONCE ONCE IV Last administered on 01/30/18at 00:11; Start 01/29/18 at 23:00; Stop 01/29/18 at 23:29; Status DC Ondansetron HCl (Zofran) 4 mg PRN Q6HRS PRN IV NAUSEA/VOMITING; Start 01/30/18 at 01:00 Prochlorperazine Edisylate (Compazine) 10 mg PRN Q6HRS PRN IV NAUSEA/VOMITING; Start 01/30/18 at 01:00 Oxycodone HCl (Roxicodone) 5 mg PRN Q3HRS PRN PO BREAKTHROUGH PAIN; Start 01/30 at 01:00 Ketorolac Tromethamine (Toradol 15mg Vial) 15 mg PRN Q6HRS PRN IV PAIN Last administered on 01/30/18at 10:13; Start 01/30/18 at 01:00; Stop 02/04/18 at 00:59 Lactulose (Lactulose) 20 gm PRN Q12HR PRN PO CONSTIPATION; Start 01/30/18 at 01 :00 Insulin Human Lispro (HumaLOG) 0-9 UNITS TIDWMEALS SQ Last administered on 01/30at 11:50; Start 01/30/18 at 08:00 Dextrose (Dextrose 50%-Water Syringe) 12.5 gm PRN Q15MIN PRN IV SEE COMMENTS; Start 01/30/18 at 01:00 Clonazepam (KlonoPIN) 0.5 mg DAILY PO Last administered on 01/30/18at 09:11; Start 01/30/18 at 09:00 Insulin Glargine (Lantus) 12 units QHS SQ ; Start 01/30/18 at 01:15 Pregabalin (Lyrica) 50 mg BID PO Last administered on 01/30/18at 09:10; Start 01/30/18 at 09:00 Sertraline HCl (Zoloft) 50 mg DAILY PO Last administered on 01/30/18at 09:12; Start 01/30/18 at 09:00 Losartan Potassium (Cozaar) 100 mg DAILY PO Last administered on 01/30/18at 09: 09; Start 01/30/18 at 09:00 Non-Formulary Medication (Quinapril/ Hydrochlorothiazide (Quinapril-Hctz 10- 12.5 Mg Tab)) 1 each DAILY PO ; Start 01/30/18 at 09:00; Status UNV Atorvastatin Calcium (Lipitor) 40 mg HS PO ; Start 01/30/18 at 21:00 Sumatriptan Succinate (Imitrex) 100 mg PRN Q2HR PRN PO MIGRAINE HEADACHE; Start 01/30/18 at 01:00 Metronidazole 100 ml @ 100 mls/hr Q8HRS IV Last administered on 01/30/18at 06: 12; Start 01/30/18 at 06:00 Ciprofloxacin/ Dextrose 100 ml @ 100 mls/hr Q12HR IV Last administered on 01/30at 09:12; Start 01/30/18 at 01:30 Lisinopril (Prinivil) 10 mg DAILY PO Last administered on 01/30/18at 09:11; Start 01/30/18 at 09:00 Hydrochlorothiazide (Microzide) 12.5 mg DAILY PO Last administered on at 09:11; Start 01/30/18 at 09:00 Iohexol (Omnipaque 300 Mg/ml) 100 ml STK-MED ONCE .ROUTE ; Start 01/30/18 at 03: 45; Stop 01/30/18 at 03:46; Status DC Insulin Glargine (Lantus) 12 units 1X ONCE SQ Last administered on 01/30/18at 09:17; Start 01/30/18 at 09:00; Stop 01/30/18 at 09:01; Status DC Insulin Human Lispro (HumaLOG) 12 units 1X ONCE SQ Last administered on at 09:17; Start 01/30/18 at 09:00; Stop 01/30/18 at 09:01; Status DC Active Scripts Active Reported Atacand (Candesartan Cilexetil) 32 Mg Tablet 1 Tab PO DAILY Quinapril-Hctz 10-12.5 Mg Tab (Quinapril/Hydrochlorothiazide) 1 Each Tablet 1 Each PO DAILY Relpax (Eletriptan Hbr) 20 Mg Tablet 20 Mg PO Reglan (Metoclopramide Hcl) 10 Mg Tablet 10 Mg PO TIDWMEALHC Lyrica (Pregabalin) 50 Mg Capsule 50 Mg PO BID Clonazepam 0.5 Mg Tablet 1 Tab PO DAILY Zoloft (Sertraline Hcl) 50 Mg Tablet 1 Tab PO DAILY Crestor (Rosuvastatin Calcium) 10 Mg Tablet 1 Tab PO DAILY Lantus Solostar (Insulin Glargine,Hum.rec.anlog) 100 Unit/1 Ml Insuln.pen 10 Unit SQ QHS Allergies Allergies: Coded Allergies: acetaminophen (Verified Allergy, Severe, THROAT SWELLS, 05/29/15) propoxyphene (Verified Allergy, Severe, THROAT SWELLS, 05/29/15) Penicillins (Verified Allergy, Intermediate, HIVES, 05/29/15) vancomycin (Verified Allergy, Unknown, 01/30/18) Vitals VITALS Vital Signs Date Time Temp Pulse Resp B/P (MAP) Pulse Ox O2 Delivery O2 Flow Rate FiO2 01/30/18 11:51 Room Air 01/30/18 11:00 97.3 60 16 108/52 (70) 97 97.3 Labs Labs Laboratory Tests Test 01/29/18 19:57 01/29/18 20:08 01/29/18 20:18 01/29/18 21:08 Urine Collection Type Unknown Urine Color Yellow Urine Clarity Clear Urine pH 5.0 Urine Specific [place] >=1.030 Urine Protein Negative mg/dL (NEG-TRACE) Urine Glucose (UA) >=1000 mg/dL (NEG) Urine Ketones (Stick) Negative mg/dL (NEG) Urine Blood Negative (NEG) Urine Nitrite Negative (NEG) Urine Bilirubin Negative (NEG) Urine Urobilinogen Dipstick 0.2 mg/dL (0.2 mg/dL) Urine Leukocyte Esterase Negative (NEG) Urine RBC 0 /HPF (0-2) Urine WBC 0 /HPF (0-4) Urine Squamous Epithelial Cells Mod /LPF Urine Bacteria Few /HPF (0-FEW) Bedside Urine HCG, Qualitative Hcg negative (Negative) White Blood Count 5.5 x10^3/uL (4.0-11.0) Red Blood Count 4.78 x10^6/uL (3.50-5.40) Hemoglobin 14.5 g/dL (12.0-15.5) Hematocrit 40.2 % (36.0-47.0) Mean Corpuscular Volume 84 fL (79-100) Mean Corpuscular Hemoglobin 30 pg (25-35) Mean Corpuscular Hemoglobin Concent 36 g/dL (31-37) Red Cell Distribution Width 13.3 % (11.5-14.5) Platelet Count 219 x10^3/uL (140-400) Neutrophils (%) (Auto) 60 % (31-73) Lymphocytes (%) (Auto) 31 % (24-48) Monocytes (%) (Auto) 7 % (0-9) Eosinophils (%) (Auto) 1 % (0-3) Basophils (%) (Auto) 1 % (0-3) Neutrophils # (Auto) 3.3 x10^3uL (1.8-7.7) Lymphocytes # (Auto) 1.7 x10^3/uL (1.0-4.8) Monocytes # (Auto) 0.4 x10^3/uL (0.0-1.1) Eosinophils # (Auto) 0.1 x10^3/uL (0.0-0.7) Basophils # (Auto) 0.1 x10^3/uL (0.0-0.2) Prothrombin Time 48.9 SEC (11.7-14.0) Prothromb Time International Ratio 5.5 (0.8-1.1) Sodium Level 135 mmol/L (136-145) Potassium Level 4.0 mmol/L (3.5-5.1) Chloride Level 99 mmol/L (98-107) Carbon Dioxide Level 25 mmol/L (21-32) Anion Gap 11 (6-14) Blood Urea Nitrogen 8 mg/dL (7-20) Creatinine 0.8 mg/dL (0.6-1.0) Estimated GFR (Cockcroft-Gault) 78.7 BUN/Creatinine Ratio 10 (6-20) Glucose Level 426 mg/dL (70-99) Calcium Level 9.4 mg/dL (8.5-10.1) Total Bilirubin 0.2 mg/dL (0.2-1.0) Aspartate Amino Transf (AST/SGOT) 28 U/L (15-37) Alanine Aminotransferase (ALT/SGPT) 63 U/L (14-59) Alkaline Phosphatase 81 U/L (46-116) Total Protein 7.7 g/dL (6.4-8.2) Albumin 3.3 g/dL (3.4-5.0) Albumin/Globulin Ratio 0.8 (1.0-1.7) Lipase 183 U/L (73-393) Stool Occult Blood Positive (NEG) Test 01/30/18 06:45 01/30/18 07:47 01/30/18 11:22 Prothrombin Time 54.1 SEC (11.7-14.0) Prothromb Time International Ratio 6.2 (0.8-1.1) Sodium Level 136 mmol/L (136-145) Potassium Level 4.0 mmol/L (3.5-5.1) Chloride Level 102 mmol/L (98-107) Carbon Dioxide Level 26 mmol/L (21-32) Anion Gap 8 (6-14) Blood Urea Nitrogen 9 mg/dL (7-20) Creatinine 0.6 mg/dL (0.6-1.0) Estimated GFR (Cockcroft-Gault) 109.6 BUN/Creatinine Ratio 15 (6-20) Glucose Level 360 mg/dL (70-99) Calcium Level 8.6 mg/dL (8.5-10.1) Total Bilirubin 0.3 mg/dL (0.2-1.0) Aspartate Amino Transf (AST/SGOT) 35 U/L (15-37) Alanine Aminotransferase (ALT/SGPT) 61 U/L (14-59) Alkaline Phosphatase 72 U/L (46-116) Total Protein 6.5 g/dL (6.4-8.2) Albumin 2.9 g/dL (3.4-5.0) Albumin/Globulin Ratio 0.8 (1.0-1.7) Thyroid Stimulating Hormone (TSH) 4.701 uIU/mL (0.358-3.74) Glucose (Fingerstick) 437 mg/dL (70-99) 464 mg/dL (70-99) Laboratory Tests Test 01/29/18 19:57 01/29/18 20:08 01/29/18 20:18 11/3/18 21:08 Urine Collection Type Unknown Urine Color Yellow Urine Clarity Clear Urine pH 5.0 Urine Specific [place] >=1.030 Urine Protein Negative mg/dL (NEG-TRACE) Urine Glucose (UA) >=1000 mg/dL (NEG) Urine Ketones (Stick) Negative mg/dL (NEG) Urine Blood Negative (NEG) Urine Nitrite Negative (NEG) Urine Bilirubin Negative (NEG) Urine Urobilinogen Dipstick 0.2 mg/dL (0.2 mg/dL) Urine Leukocyte Esterase Negative (NEG) Urine RBC 0 /HPF (0-2) Urine WBC 0 /HPF (0-4) Urine Squamous Epithelial Cells Mod /LPF Urine Bacteria Few /HPF (0-FEW) Bedside Urine HCG, Qualitative Hcg negative (Negative) White Blood Count 5.5 x10^3/uL (4.0-11.0) Red Blood Count 4.78 x10^6/uL (3.50-5.40) Hemoglobin 14.5 g/dL (12.0-15.5) Hematocrit 40.2 % (36.0-47.0) Mean Corpuscular Volume 84 fL (79-100) Mean Corpuscular Hemoglobin 30 pg (25-35) Mean Corpuscular Hemoglobin Concent 36 g/dL (31-37) Red Cell Distribution Width 13.3 % (11.5-14.5) Platelet Count 219 x10^3/uL (140-400) Neutrophils (%) (Auto) 60 % (31-73) Lymphocytes (%) (Auto) 31 % (24-48) Monocytes (%) (Auto) 7 % (0-9) Eosinophils (%) (Auto) 1 % (0-3) Basophils (%) (Auto) 1 % (0-3) Neutrophils # (Auto) 3.3 x10^3uL (1.8-7.7) Lymphocytes # (Auto) 1.7 x10^3/uL (1.0-4.8) Monocytes # (Auto) 0.4 x10^3/uL (0.0-1.1) Eosinophils # (Auto) 0.1 x10^3/uL (0.0-0.7) Basophils # (Auto) 0.1 x10^3/uL (0.0-0.2) Prothrombin Time 48.9 SEC (11.7-14.0) Prothromb Time International Ratio 5.5 (0.8-1.1) Sodium Level 135 mmol/L (136-145) Potassium Level 4.0 mmol/L (3.5-5.1) Chloride Level 99 mmol/L (98-107) Carbon Dioxide Level 25 mmol/L (21-32) Anion Gap 11 (6-14) Blood Urea Nitrogen 8 mg/dL (7-20) Creatinine 0.8 mg/dL (0.6-1.0) Estimated GFR (Cockcroft-Gault) 78.7 BUN/Creatinine Ratio 10 (6-20) Glucose Level 426 mg/dL (70-99) Calcium Level 9.4 mg/dL (8.5-10.1) Total Bilirubin 0.2 mg/dL (0.2-1.0) Aspartate Amino Transf (AST/SGOT) 28 U/L (15-37) Alanine Aminotransferase (ALT/SGPT) 63 U/L (14-59) Alkaline Phosphatase 81 U/L (46-116) Total Protein 7.7 g/dL (6.4-8.2) Albumin 3.3 g/dL (3.4-5.0) Albumin/Globulin Ratio 0.8 (1.0-1.7) Lipase 183 U/L (73-393) Stool Occult Blood Positive (NEG) Test 01/30/18 06:45 01/30/18 07:47 01/30/18 11:22 Prothrombin Time 54.1 SEC (11.7-14.0) Prothromb Time International Ratio 6.2 (0.8-1.1) Sodium Level 136 mmol/L (136-145) Potassium Level 4.0 mmol/L (3.5-5.1) Chloride Level 102 mmol/L (98-107) Carbon Dioxide Level 26 mmol/L (21-32) Anion Gap 8 (6-14) Blood Urea Nitrogen 9 mg/dL (7-20) Creatinine 0.6 mg/dL (0.6-1.0) Estimated GFR (Cockcroft-Gault) 109.6 BUN/Creatinine Ratio 15 (6-20) Glucose Level 360 mg/dL (70-99) Calcium Level 8.6 mg/dL (8.5-10.1) Total Bilirubin 0.3 mg/dL (0.2-1.0) Aspartate Amino Transf (AST/SGOT) 35 U/L (15-37) Alanine Aminotransferase (ALT/SGPT) 61 U/L (14-59) Alkaline Phosphatase 72 U/L (46-116) Total Protein 6.5 g/dL (6.4-8.2) Albumin 2.9 g/dL (3.4-5.0) Albumin/Globulin Ratio 0.8 (1.0-1.7) Thyroid Stimulating Hormone (TSH) 4.701 uIU/mL (0.358-3.74) Glucose (Fingerstick) 437 mg/dL (70-99) 464 mg/dL (70-99) Assessment/Plan Assessment/Plan LLQ abd pain- with abnl CT scan, infectious colitis leads differential. Diverticulitis, new onset IBD, colon cancer, and/or ischemic colitis possible as well. Plan correct coagulopathy for Factor V deficiency antibiotics i/p colonoscopy if no improvement with medical therapy, otherwise o/p Full note dictated WINIFRED GONZALES MD Jan 30, 2018 12:54
[2018-01-30 15:34] VITALS: BP 87/51
[2018-01-30 19:05] VITALS: BP 122/56
[2018-01-30] MEDS: ATORVASTATIN CALCIUM 40 MG TABLET. PO SCH (20:41)
--- NOTE | 2018-01-30 22:29 | CONS ---
DATE OF CONSULTATION: 01/30/2018 GASTROENTEROLOGY CONSULTATION REASON FOR CONSULTATION: Left lower quadrant abdominal pain, abnormal CAT scan and rectal bleeding. 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 Some loose stools were encountered, but no maribel diarrhea. CT scan did reveal thickening of the descending and sigmoid colon. Family history is unrevealing for colon polyps, colon cancer or inflammatory bowel disease. She denies any extraintestinal manifestations or IBD at this time. With continued symptoms, she has been admitted with an INR of over 10 on admission, which has been corrected now to 5.5, ongoing issues. GI consultation is requested. PAST MEDICAL HISTORY: Diabetes, migraines and factor V Leiden deficiency with multiple PEs and DVTs. ALLERGIES: PENICILLIN, VANCOMYCIN AND ACETAMINOPHEN. MEDICATIONS: Presently include Lipitor, Microzide, Prinivil, Cozaar, Zoloft, Lyrica, Klonopin, insulin, Flagyl and Cipro. SOCIAL HISTORY: She lives with her daughter. She does not drink or smoke at this time. FAMILY HISTORY: Otherwise, noncontributory. REVIEW OF SYSTEMS: Per records. PHYSICAL EXAMINATION: VITAL SIGNS: Temperature is 97.3, pulse is 60, respirations are 16 and blood pressure is 108/52. HEENT EXAMINATION: Normocephalic and atraumatic head. Pupils and extraocular muscles are not tested. Sclerae anicteric. NECK: Supple. LUNGS: Clear. CARDIOVASCULAR EXAMINATION: Reveals an S1 and S2, without S3, S4 or appreciable murmur. ABDOMEN: Examination reveals a soft abdomen. Normal bowel sounds, without appreciable hepatosplenomegaly. Left lower quadrant tenderness to palpation. EXTREMITIES: Examination reveals no cyanosis, clubbing or edema. LABORATORY STUDIES: INR is 6.2. Hemoglobin is 14.5, hematocrit 48.2, white count 5.5 and platelet count is 219,000. Sodium 136, potassium 4.0, chloride 102, BUN 9, creatinine 0.6, glucose is 360 and calcium 8.0. Total bilirubin 0.3, AST 35, ALT of 61 and alkaline phosphatase 72. Total protein 6.5, albumin 2.9. TSH of 4.7. Lipase of 183. CT scan does reveal segmental wall thickening of the descending colon and sigmoid colon. No pneumatosis, free air or free fluid. IMPRESSION: Abdominal pain with abnormal CT scan, most likely secondary to infectious colitis, ischemic colitis, diverticulitis, new-onset Crohn's disease, colon cancer, colon polyps or other differential. We will recommend correction of her coagulopathy to a level reasonable for factor V Leiden deficiency, antibiotic therapy and inpatient colonoscopy if the pain persists with therapy; otherwise, outpatient colonoscopy to further assess the bleeding. WINIFRED GONZALES MD DR: LORI/gelacio JOB#: [id number] / [id number]
[2018-01-30 23:12] VITALS: BP 107/64
[2018-01-31] VITALS (14 sets, daily range): BP systolic 101–135; BP diastolic 51–87
[2018-01-31] MEDS: KETOROLAC 15 MG/ML VIAL. IV PRN ×3 (00:33→14:48)
[2018-01-31] MEDS: oxyCODONE IR 5 MG TABLET PO PRN (00:33)
[2018-01-31] MEDS: MORPHINE SULFATE 4 MG/ML VIAL. IV PRN ×7 (06:13→23:06)
[2018-01-31 06:47] LABS: ALBUMIN 2.5 g/dL (3.4-5.0); ALBUMIN/GLOBULIN RATIO 0.7 (1.0-1.7); CALCIUM 8.2 mg/dL (8.5-10.1); CREATININE 0.6 mg/dL (0.6-1.0); GFR 109.6; POTASSIUM 4.2 mmol/L (3.5-5.1); TOTAL BILIRUBIN 0.2 mg/dL (0.2-1.0)
[2018-01-31 06:50] LABS: PROTHROMBIN TIME PATIENT 64.6 SEC (11.7-14.0)
[2018-01-31] MEDS: PREGABALIN 50 MG CAPSULE PO SCH ×2 (08:14→20:05)
[2018-01-31] MEDS: CIPROFLOXACIN 200MG PREMIX 100 ML IV SCH ×2 (08:14→21:10)
[2018-01-31] MEDS: LOSARTAN POTASSIUM 50 MG TABLET. PO SCH (08:14)
[2018-01-31] MEDS ORDERED: clonazePAM 0.5 MG TABLET PO PRN (08:15)
[2018-01-31] MEDS: LISINOPRIL 10 MG TABLET PO SCH (08:15)
[2018-01-31] MEDS: hydroCHLOROthiazide 12.5 MG CAPSULE PO SCH (08:15)
[2018-01-31] MEDS: SERTRALINE 50 MG TABLET. PO SCH (08:16)
[2018-01-31] MEDS: INSULIN LISPRO 300 UNITS/3 ML INSULN.PEN. SQ SCH ×5 (08:24→17:20)
[2018-01-31 12:40] LABS: PROTHROMBIN TIME PATIENT 62.5 SEC (11.7-14.0)
--- NOTE | 2018-01-31 14:20 | PDOC ---
Subjective: Subjective: Tolerating regular diet w/o increase in pain. Pain across lower abdomen - better with legs drawn to chest. No n/v or diarrhea. No bleeding. Objective: Vital Signs: Vital Signs Date Time Temp Pulse Resp B/P (MAP) Pulse Ox O2 Delivery O2 Flow Rate FiO2 01/31/18 12:43 94 Room Air 01/31/18 11:00 98.1 67 16 110/72 (85) 98.1 Labs: Laboratory Tests Test 01/30/18 16:39 01/30/18 20:43 01/30/18 22:31 01/31/18 00:38 Glucose (Fingerstick) 342 mg/dL 395 mg/dL 405 mg/dL 327 mg/dL Test 01/31/18 06:10 01/31/18 07:56 01/31/18 11:05 01/31/18 11:50 Prothrombin Time 64.6 SEC 62.5 SEC Prothromb Time International Ratio 7.8 7.4 Sodium Level 134 mmol/L Potassium Level 4.2 mmol/L Chloride Level 102 mmol/L Carbon Dioxide Level 24 mmol/L Anion Gap 8 Blood Urea Nitrogen 11 mg/dL Creatinine 0.6 mg/dL Estimated GFR (Cockcroft-Gault) 109.6 BUN/Creatinine Ratio 18 Glucose Level 332 mg/dL Calcium Level 8.2 mg/dL Total Bilirubin 0.2 mg/dL Aspartate Amino Transf (AST/SGOT) 24 U/L Alanine Aminotransferase (ALT/SGPT) 51 U/L Alkaline Phosphatase 59 U/L Total Protein 6.0 g/dL Albumin 2.5 g/dL Albumin/Globulin Ratio 0.7 Glucose (Fingerstick) 293 mg/dL 333 mg/dL PE: GEN: NAD, talking on cell LUNGS: CTAB HEART: RRR ABD: vague BLQ and suprapubic tenderness, obese NEURO/PSYCH: A & O 3 A/P: Factor V Leiden, Coumadin coagulopathy DM Lower abd pain - bilateral Abnormal CT - "segmental wall thickening of the descending colon and sigmoid colon... may be due to incomplete distention" -- Doubt colitis - no diarrhea or bleeding. ?need for IV atbx Coagulopathy worse. Try dicyclomine for abd pain. GABRIELA BRYSON Jan 31, 2018 14:20
[2018-01-31] MEDS ORDERED: DICYCLOMINE HCL 10 MG CAPSULE PO PRN (14:30)
[2018-01-31] MEDS ORDERED: ONDANSETRON PF 4 MG/2 ML VIAL. IV PRN (15:45)
[2018-01-31] MEDS ORDERED: DOCUSATE SODIUM 100 MG CAPSULE. PO PRN (15:45)
[2018-01-31] MEDS ORDERED: traMADol 50 MG TABLET PO PRN (15:45)
--- NOTE | 2018-01-31 15:47 | PDOC ---
PROGRESS NOTES Chief Complaint Chief Complaint Abdominal Pain with possible colitis Acute blood loss - LGIB, hb stable Migraines DM - with A1c of 12.6 FV leiden Supratherapeutic INR on warfarin Fall Transaminitis h/o dvt and PEs plan: fu with GI on cipro, flagyl regular diet monitor hb ,INR 2FFP today increase lantus to 30u qhs, aspart 10u tid, ssi History of Present Illness History of Present Illness 42 yo F w/ PMHx DM, migraines, factor V Leiden deficiency (multiple PE, DVT on lifelong anticoagulation with coumadin) p/w abdominal pain. Onset 2 days ago, associated with blood in stool Pain is cramping, colicky diffuse bilateral upper quadrant radiates to the back also some pain with moving her left hip. Her INR was 7.8 this morning and had positive occult blood in stool. Still with pain, feels it is somewhat improved. has abd pain since fall last Vitals Vitals Vital Signs Date Time Temp Pulse Resp B/P (MAP) Pulse Ox O2 Delivery O2 Flow Rate FiO2 01/31/18 15:20 100 Room Air 01/31/18 15:00 97.5 70 16 119/63 (81) 97.5 Physical Exam General: Alert, Oriented X3, Cooperative, No acute distress Abdomen: Normal bowel sounds, Soft, Other (Tenderness in bilateral upper quadrants, epigastrium and LLQ) Extremities: No clubbing, No cyanosis, No edema, Normal pulses, No tenderness/ swelling Skin: No rashes, No breakdown, No significant lesion Labs LABS Laboratory Tests Test 01/30/18 16:39 01/30/18 20:43 01/30/18 22:31 01/31/18 00:38 Glucose (Fingerstick) 342 mg/dL (70-99) 395 mg/dL (70-99) 405 mg/dL (70-99) 327 mg/dL (70-99) Test 01/31/18 06:10 01/31/18 07:56 01/31/18 11:05 01/31/18 11:50 Prothrombin Time 64.6 SEC (11.7-14.0) 62.5 SEC (11.7-14.0) Prothromb Time International Ratio 7.8 (0.8-1.1) 7.4 (0.8-1.1) Sodium Level 134 mmol/L (136-145) Potassium Level 4.2 mmol/L (3.5-5.1) Chloride Level 102 mmol/L (98-107) Carbon Dioxide Level 24 mmol/L (21-32) Anion Gap 8 (6-14) Blood Urea Nitrogen 11 mg/dL (7-20) Creatinine 0.6 mg/dL (0.6-1.0) Estimated GFR (Cockcroft-Gault) 109.6 BUN/Creatinine Ratio 18 (6-20) Glucose Level 332 mg/dL (70-99) Calcium Level 8.2 mg/dL (8.5-10.1) Total Bilirubin 0.2 mg/dL (0.2-1.0) Aspartate Amino Transf (AST/SGOT) 24 U/L (15-37) Alanine Aminotransferase (ALT/SGPT) 51 U/L (14-59) Alkaline Phosphatase 59 U/L (46-116) Total Protein 6.0 g/dL (6.4-8.2) Albumin 2.5 g/dL (3.4-5.0) Albumin/Globulin Ratio 0.7 (1.0-1.7) Glucose (Fingerstick) 293 mg/dL (70-99) 333 mg/dL (70-99) Assessment and Plan Assessmemt and Plan Problems Medical Problems: (1) Coumadin toxicity Status: Acute Comment Review of Relevant I have reviewed the following items tasha (where applicable) has been applied. Labs Laboratory Tests Test 01/29/18 19:57 01/29/18 20:08 01/29/18 20:18 01/29/18 21:08 Urine Collection Type Unknown Urine Color Yellow Urine Clarity Clear Urine pH 5.0 Urine Specific [place] >=1.030 Urine Protein Negative mg/dL (NEG-TRACE) Urine Glucose (UA) >=1000 mg/dL (NEG) Urine Ketones (Stick) Negative mg/dL (NEG) Urine Blood Negative (NEG) Urine Nitrite Negative (NEG) Urine Bilirubin Negative (NEG) Urine Urobilinogen Dipstick 0.2 mg/dL (0.2 mg/dL) Urine Leukocyte Esterase Negative (NEG) Urine RBC 0 /HPF (0-2) Urine WBC 0 /HPF (0-4) Urine Squamous Epithelial Cells Mod /LPF Urine Bacteria Few /HPF (0-FEW) Bedside Urine HCG, Qualitative Hcg negative (Negative) White Blood Count 5.5 x10^3/uL (4.0-11.0) Red Blood Count 4.78 x10^6/uL (3.50-5.40) Hemoglobin 14.5 g/dL (12.0-15.5) Hematocrit 40.2 % (36.0-47.0) Mean Corpuscular Volume 84 fL (79-100) Mean Corpuscular Hemoglobin 30 pg (25-35) Mean Corpuscular Hemoglobin Concent 36 g/dL (31-37) Red Cell Distribution Width 13.3 % (11.5-14.5) Platelet Count 219 x10^3/uL (140-400) Neutrophils (%) (Auto) 60 % (31-73) Lymphocytes (%) (Auto) 31 % (24-48) Monocytes (%) (Auto) 7 % (0-9) Eosinophils (%) (Auto) 1 % (0-3) Basophils (%) (Auto) 1 % (0-3) Neutrophils # (Auto) 3.3 x10^3uL (1.8-7.7) Lymphocytes # (Auto) 1.7 x10^3/uL (1.0-4.8) Monocytes # (Auto) 0.4 x10^3/uL (0.0-1.1) Eosinophils # (Auto) 0.1 x10^3/uL (0.0-0.7) Basophils # (Auto) 0.1 x10^3/uL (0.0-0.2) Prothrombin Time 48.9 SEC (11.7-14.0) Prothromb Time International Ratio 5.5 (0.8-1.1) Sodium Level 135 mmol/L (136-145) Potassium Level 4.0 mmol/L (3.5-5.1) Chloride Level 99 mmol/L (98-107) Carbon Dioxide Level 25 mmol/L (21-32) Anion Gap 11 (6-14) Blood Urea Nitrogen 8 mg/dL (7-20) Creatinine 0.8 mg/dL (0.6-1.0) Estimated GFR (Cockcroft-Gault) 78.7 BUN/Creatinine Ratio 10 (6-20) Glucose Level 426 mg/dL (70-99) Calcium Level 9.4 mg/dL (8.5-10.1) Total Bilirubin 0.2 mg/dL (0.2-1.0) Aspartate Amino Transf (AST/SGOT) 28 U/L (15-37) Alanine Aminotransferase (ALT/SGPT) 63 U/L (14-59) Alkaline Phosphatase 81 U/L (46-116) Total Protein 7.7 g/dL (6.4-8.2) Albumin 3.3 g/dL (3.4-5.0) Albumin/Globulin Ratio 0.8 (1.0-1.7) Lipase 183 U/L (73-393) Stool Occult Blood Positive (NEG) Test 01/30/18 06:45 01/30/18 07:47 01/30/18 11:22 01/30/18 16:39 Prothrombin Time 54.1 SEC (11.7-14.0) Prothromb Time International Ratio 6.2 (0.8-1.1) Sodium Level 136 mmol/L (136-145) Potassium Level 4.0 mmol/L (3.5-5.1) Chloride Level 102 mmol/L (98-107) Carbon Dioxide Level 26 mmol/L (21-32) Anion Gap 8 (6-14) Blood Urea Nitrogen 9 mg/dL (7-20) Creatinine 0.6 mg/dL (0.6-1.0) Estimated GFR (Cockcroft-Gault) 109.6 BUN/Creatinine Ratio 15 (6-20) Glucose Level 360 mg/dL (70-99) Calcium Level 8.6 mg/dL (8.5-10.1) Total Bilirubin 0.3 mg/dL (0.2-1.0) Aspartate Amino Transf (AST/SGOT) 35 U/L (15-37) Alanine Aminotransferase (ALT/SGPT) 61 U/L (14-59) Alkaline Phosphatase 72 U/L (46-116) Total Protein 6.5 g/dL (6.4-8.2) Albumin 2.9 g/dL (3.4-5.0) Albumin/Globulin Ratio 0.8 (1.0-1.7) Thyroid Stimulating Hormone (TSH) 4.701 uIU/mL (0.358-3.74) Glucose (Fingerstick) 437 mg/dL (70-99) 464 mg/dL (70-99) 342 mg/dL (70-99) Test 01/30/18 20:43 01/30/18 22:31 01/31/18 00:38 01/31/18 06:10 Glucose (Fingerstick) 395 mg/dL (70-99) 405 mg/dL (70-99) 327 mg/dL (70-99) Prothrombin Time 64.6 SEC (11.7-14.0) Prothromb Time International Ratio 7.8 (0.8-1.1) Sodium Level 134 mmol/L (136-145) Potassium Level 4.2 mmol/L (3.5-5.1) Chloride Level 102 mmol/L (98-107) Carbon Dioxide Level 24 mmol/L (21-32) Anion Gap 8 (6-14) Blood Urea Nitrogen 11 mg/dL (7-20) Creatinine 0.6 mg/dL (0.6-1.0) Estimated GFR (Cockcroft-Gault) 109.6 BUN/Creatinine Ratio 18 (6-20) Glucose Level 332 mg/dL (70-99) Calcium Level 8.2 mg/dL (8.5-10.1) Total Bilirubin 0.2 mg/dL (0.2-1.0) Aspartate Amino Transf (AST/SGOT) 24 U/L (15-37) Alanine Aminotransferase (ALT/SGPT) 51 U/L (14-59) Alkaline Phosphatase 59 U/L (46-116) Total Protein 6.0 g/dL (6.4-8.2) Albumin 2.5 g/dL (3.4-5.0) Albumin/Globulin Ratio 0.7 (1.0-1.7) Test 01/31/18 07:56 01/31/18 11:05 01/31/18 11:50 Glucose (Fingerstick) 293 mg/dL (70-99) 333 mg/dL (70-99) Prothrombin Time 62.5 SEC (11.7-14.0) Prothromb Time International Ratio 7.4 (0.8-1.1) Laboratory Tests Test 01/30/18 16:39 01/30/18 20:43 01/30/18 22:31 01/31/18 00:38 Glucose (Fingerstick) 342 mg/dL (70-99) 395 mg/dL (70-99) 405 mg/dL (70-99) 327 mg/dL (70-99) Test 01/31/18 06:10 01/31/18 07:56 01/31/18 11:05 01/31/18 11:50 Prothrombin Time 64.6 SEC (11.7-14.0) 62.5 SEC (11.7-14.0) Prothromb Time International Ratio 7.8 (0.8-1.1) 7.4 (0.8-1.1) Sodium Level 134 mmol/L (136-145) Potassium Level 4.2 mmol/L (3.5-5.1) Chloride Level 102 mmol/L (98-107) Carbon Dioxide Level 24 mmol/L (21-32) Anion Gap 8 (6-14) Blood Urea Nitrogen 11 mg/dL (7-20) Creatinine 0.6 mg/dL (0.6-1.0) Estimated GFR (Cockcroft-Gault) 109.6 BUN/Creatinine Ratio 18 (6-20) Glucose Level 332 mg/dL (70-99) Calcium Level 8.2 mg/dL (8.5-10.1) Total Bilirubin 0.2 mg/dL (0.2-1.0) Aspartate Amino Transf (AST/SGOT) 24 U/L (15-37) Alanine Aminotransferase (ALT/SGPT) 51 U/L (14-59) Alkaline Phosphatase 59 U/L (46-116) Total Protein 6.0 g/dL (6.4-8.2) Albumin 2.5 g/dL (3.4-5.0) Albumin/Globulin Ratio 0.7 (1.0-1.7) Glucose (Fingerstick) 293 mg/dL (70-99) 333 mg/dL (70-99) Medications Current Medications Fentanyl Citrate (Fentanyl 2ml Vial) 50 mcg 1X ONCE IV Last administered on at 20:24; Start 01/29/18 at 20:15; Stop 01/29/18 at 20:16; Status DC Iohexol (Omnipaque 300 Mg/ml) 100 ml STK-MED ONCE .ROUTE ; Start 01/29/18 at 21: 08; Stop 01/29/18 at 21:09; Status DC Metronidazole 100 ml @ 100 mls/hr 1X ONCE IV Last administered on 01/29/18at 23:04; Start 01/29/18 at 22:30; Stop 01/29/18 at 23:29; Status DC Aztreonam 1 gm/ Dextrose 50 ml @ 100 mls/hr Q6HRS IV ; Start 01/30/18 at 06:00 ; Stop 01/30/18 at 06:00; Status DC Sodium Chloride 1,000 ml @ 1,000 mls/hr 1X ONCE IV Last administered on at 23:04; Start 01/29/18 at 22:30; Stop 01/29/18 at 23:29; Status DC Phytonadione (Mephyton Oral Soln) 2.5 mg 1X ONCE PO Last administered on at 23:05; Start 01/29/18 at 22:45; Stop 01/29/18 at 22:46; Status DC Morphine Sulfate (Morphine Sulfate) 4 mg PRN Q2HR PRN IV PAIN Last administered on 01/30/18at 20:41; Start 01/29/18 at 22:45; Stop 01/30/18 at 22:44 ; Status DC Sodium Chloride 1,000 ml @ 100 mls/hr Q10H IV Last administered on 01/30/18at 17:18; Start 01/29/18 at 22:45; Stop 01/30/18 at 22:44; Status DC Aztreonam 1 gm/ Dextrose 50 ml @ 100 mls/hr ONCE ONCE IV Last administered on 01/30/18at 00:11; Start 01/29/18 at 23:00; Stop 01/29/18 at 23:29; Status DC Ondansetron HCl (Zofran) 4 mg PRN Q6HRS PRN IV NAUSEA/VOMITING; Start 01/30/18 at 01:00 Prochlorperazine Edisylate (Compazine) 10 mg PRN Q6HRS PRN IV NAUSEA/VOMITING; Start 01/30/18 at 01:00 Oxycodone HCl (Roxicodone) 5 mg PRN Q3HRS PRN PO BREAKTHROUGH PAIN Last administered on 01/31/18at 00:33; Start 01/30/18 at 01:00 Ketorolac Tromethamine (Toradol 15mg Vial) 15 mg PRN Q6HRS PRN IV MILD PAIN Last administered on 01/31/18at 14:48; Start 01/30/18 at 01:00; Stop 02/04/18 at 00:59 Lactulose (Lactulose) 20 gm PRN Q12HR PRN PO CONSTIPATION; Start 01/30/18 at 01 :00 Insulin Human Lispro (HumaLOG) 0-9 UNITS TIDWMEALS SQ Last administered on 01/31at 12:02; Start 01/30/18 at 08:00 Dextrose (Dextrose 50%-Water Syringe) 12.5 gm PRN Q15MIN PRN IV SEE COMMENTS; Start 01/30/18 at 01:00 Clonazepam (KlonoPIN) 0.5 mg DAILY PO Last administered on 01/30/18at 09:11; Start 01/30/18 at 09:00; Stop 01/31/18 at 08:12; Status DC Insulin Glargine (Lantus) 12 units QHS SQ Last administered on 01/30/18at 20:48 ; Start 01/30/18 at 01:15; Stop 01/31/18 at 12:02; Status DC Pregabalin (Lyrica) 50 mg BID PO Last administered on 01/31/18at 08:14; Start 01/30/18 at 09:00 Sertraline HCl (Zoloft) 50 mg DAILY PO Last administered on 01/31/18at 08:16; Start 01/30/18 at 09:00 Losartan Potassium (Cozaar) 100 mg DAILY PO Last administered on 01/31/18at 08: 14; Start 01/30/18 at 09:00 Non-Formulary Medication (Quinapril/ Hydrochlorothiazide (Quinapril-Hctz 10- 12.5 Mg Tab)) 1 each DAILY PO ; Start 01/30/18 at 09:00; Status UNV Atorvastatin Calcium (Lipitor) 40 mg HS PO Last administered on 01/30/18at 20:41 ; Start 01/30/18 at 21:00 Sumatriptan Succinate (Imitrex) 100 mg PRN Q2HR PRN PO MIGRAINE HEADACHE; Start 01/30/18 at 01:00 Metronidazole 100 ml @ 100 mls/hr Q8HRS IV Last administered on 01/31/18at 14: 30; Start 01/30/18 at 06:00 Ciprofloxacin/ Dextrose 100 ml @ 100 mls/hr Q12HR IV Last administered on 01/31at 08:14; Start 01/30/18 at 01:30 Lisinopril (Prinivil) 10 mg DAILY PO Last administered on 01/31/18at 08:15; Start 01/30/18 at 09:00 Hydrochlorothiazide (Microzide) 12.5 mg DAILY PO Last administered on at 08:15; Start 01/30/18 at 09:00 Iohexol (Omnipaque 300 Mg/ml) 100 ml STK-MED ONCE .ROUTE ; Start 01/30/18 at 03: 45; Stop 01/30/18 at 03:46; Status DC Insulin Glargine (Lantus) 12 units 1X ONCE SQ Last administered on 01/30/18at 09:17; Start 01/30/18 at 09:00; Stop 01/30/18 at 09:01; Status DC Insulin Human Lispro (HumaLOG) 12 units 1X ONCE SQ Last administered on at 09:17; Start 01/30/18 at 09:00; Stop 01/30/18 at 09:01; Status DC Insulin Human Lispro (HumaLOG) 8 units 1X ONCE SQ Last administered on at 23:23; Start 01/30/18 at 23:00; Stop 01/30/18 at 23:03; Status DC Morphine Sulfate (Morphine Sulfate) 4 mg PRN Q2HR PRN IV MODERATE - SEVERE PAIN Last administered on 01/31/18at 14:48; Start 01/31/18 at 01:00 Clonazepam (KlonoPIN) 0.5 mg PRN DAILY PRN PO ANXIETY / AGITATION; Start at 08:15 Lactobacillus Rhamnosus (Culturelle) 1 cap BID PO ; Start 01/31/18 at 21:00 Insulin Glargine (Lantus) 30 units QHS SQ ; Start 01/31/18 at 21:00 Insulin Human Lispro (HumaLOG) 10 units TIDAC SQ Last administered on at 12:42; Start 01/31/18 at 12:00 Influenza Virus Vaccine (Afluria Trivalent [id number] Syringe) 0.5 ml ONCE ONCE VAX IM ; Start 02/01/18 at 09:00; Stop 02/01/18 at 09:01 Dicyclomine HCl (Bentyl) 10 mg PRN QID PRN PO abd pain; Start 01/31/18 at 14:30 Active Scripts Active Reported Atacand (Candesartan Cilexetil) 32 Mg Tablet 1 Tab PO DAILY Quinapril-Hctz 10-12.5 Mg Tab (Quinapril/Hydrochlorothiazide) 1 Each Tablet 1 Each PO DAILY Relpax (Eletriptan Hbr) 20 Mg Tablet 20 Mg PO Reglan (Metoclopramide Hcl) 10 Mg Tablet 10 Mg PO TIDWMEALHC Lyrica (Pregabalin) 50 Mg Capsule 50 Mg PO BID Clonazepam 0.5 Mg Tablet 1 Tab PO PRN DAILY PRN Zoloft (Sertraline Hcl) 50 Mg Tablet 1 Tab PO DAILY Crestor (Rosuvastatin Calcium) 10 Mg Tablet 1 Tab PO DAILY Lantus Solostar (Insulin Glargine,Hum.rec.anlog) 100 Unit/1 Ml Insuln.pen 66 Unit SQ QHS Vitals/I & O Vital Sign - Last 24 Hours 01/30/18 01/30/18 01/30/18 01/30/18 16:50 19:05 20:41 21:11 Temp 98.0 98.0 Pulse 68 Resp 18 20 20 B/P (MAP) 122/56 (78) Pulse Ox 95 95 95 O2 Delivery Room Air Room Air Room Air Room Air 01/30/18 01/31/18 01/31/18 01/31/18 23:12 00:33 01:33 03:10 Temp 98.5 98.0 98.5 98.0 Pulse 63 59 Resp 18 20 20 18 B/P (MAP) 107/64 (78) 101/51 (68) Pulse Ox 96 96 96 95 O2 Delivery Room Air Room Air Room Air Room Air 01/31/18 01/31/18 01/31/18 01/31/18 06:13 06:43 07:00 08:14 Temp 97.7 97.7 Pulse 63 63 Resp 20 20 16 B/P (MAP) 125/77 (93) 125/77 Pulse Ox 95 98 O2 Delivery Room Air Room Air 01/31/18 01/31/18 01/31/18 01/31/18 08:15 08:15 08:27 11:00 Temp 98.1 98.1 Pulse 63 67 Resp 16 B/P (MAP) 125/77 110/72 (85) Pulse Ox 95 94 O2 Delivery Room Air Room Air Room Air 01/31/18 01/31/18 01/31/18 01/31/18 11:57 14:48 15:00 15:20 Temp 97.5 97.5 Pulse 70 Resp 16 B/P (MAP) 119/63 (81) Pulse Ox 94 94 100 100 O2 Delivery Room Air Room Air Room Air Room Air Intake and Output 01/30/18 01/30/18 01/31/18 15:00 23:00 07:00 Intake Total 200 ml 400 ml Balance 200 ml 400 ml DEXTER REYES MD Jan 31, 2018 15:47
[2018-01-31] MEDS: LACTOBACILLUS RHAMNOSUS GG 1 CAPSULE. PO SCH (20:04)
[2018-01-31] MEDS: ATORVASTATIN CALCIUM 40 MG TABLET. PO SCH (20:04)
[2018-01-31] MEDS ORDERED: INSULIN GLARGINE 300 UNITS/3 ML INSULN.PEN. SQ SCH (21:00)
[2018-01-31] MEDS ORDERED: INSULIN LISPRO 300 UNITS/3 ML INSULN.PEN. SQ ONE (22:00)
[2018-01-31] MEDS: ONDANSETRON PF 4 MG/2 ML VIAL. IV PRN (23:07)
[2018-02-01 03:00] VITALS: BP 118/66
[2018-02-01] MEDS: MORPHINE SULFATE 4 MG/ML VIAL. IV PRN ×6 (03:37→21:34)
[2018-02-01 03:48] LABS: BASO # 0.1 x10^3/uL (0.0-0.2); BASO % 1 % (0-3); EOS # 0.1 x10^3/uL (0.0-0.7); EOS % 2 % (0-3); HEMATOCRIT 36.7 % (36.0-47.0); HEMOGLOBIN 12.7 g/dL (12.0-15.5); LYMPH # 1.2 x10^3/uL (1.0-4.8); LYMPH % 23 % (24-48); MEAN CORPUSCULAR HEMOGLOBIN 29 pg (25-35); MEAN CORPUSCULAR HGB CONC 35 g/dL (31-37); MEAN CORPUSCULAR VOLUME 85 fL (79-100); MONO # 0.4 x10^3/uL (0.0-1.1); MONO % 8 % (0-9); NEUT # 3.5 x10^3uL (1.8-7.7); NEUT % 67 % (31-73); PLATELET COUNT 189 x10^3/uL (140-400); RED CELL DISTRIBUTION WIDTH 13.5 % (11.5-14.5); WHITE BLOOD COUNT 5.3 x10^3/uL (4.0-11.0)
[2018-02-01 03:59] LABS: PROTHROMBIN TIME PATIENT 37.6 SEC (11.7-14.0)
[2018-02-01 04:06] LABS: ALBUMIN 2.7 g/dL (3.4-5.0); ALBUMIN/GLOBULIN RATIO 0.7 (1.0-1.7); CALCIUM 8.6 mg/dL (8.5-10.1); CREATININE 0.7 mg/dL (0.6-1.0); GFR 91.8; POTASSIUM 4.5 mmol/L (3.5-5.1); TOTAL BILIRUBIN 0.3 mg/dL (0.2-1.0); TOTAL PROTEIN 6.4 g/dL (6.4-8.2)
[2018-02-01 07:10] VITALS: BP 103/58
[2018-02-01] MEDS: KETOROLAC 15 MG/ML VIAL. IV PRN ×2 (08:08→18:39)
[2018-02-01] MEDS: PREGABALIN 50 MG CAPSULE PO SCH ×2 (08:10→21:34)
[2018-02-01] MEDS: hydroCHLOROthiazide 12.5 MG CAPSULE PO SCH (08:11)
[2018-02-01] MEDS: LACTOBACILLUS RHAMNOSUS GG 1 CAPSULE. PO SCH ×2 (08:12→21:34)
[2018-02-01] MEDS: SERTRALINE 50 MG TABLET. PO SCH (08:12)
[2018-02-01] MEDS: LOSARTAN POTASSIUM 50 MG TABLET. PO SCH (08:14)
[2018-02-01] MEDS: INSULIN LISPRO 300 UNITS/3 ML INSULN.PEN. SQ SCH ×6 (08:15→16:57)
[2018-02-01] MEDS: CIPROFLOXACIN 200MG PREMIX 100 ML IV SCH ×2 (09:56→21:33)
[2018-02-01 11:00] VITALS: BP 109/57
--- NOTE | 2018-02-01 12:30 | PDOC ---
Subjective: Subjective: Lower abd pain persists - constant. Denies bleeding. Had a small formed stool yesterday. Objective: Objective: Getting morphine and IV atbx. Has not tried Bentyl. Note bumped down to full liquid diet. Vital Signs: Vital Signs Date Time Temp Pulse Resp B/P (MAP) Pulse Ox O2 Delivery O2 Flow Rate FiO2 02/01/18 10:34 16 Room Air 02/01/18 08:14 69 103/58 02/01/18 07:10 97.7 91 97.7 Labs: Laboratory Tests Test 01/31/18 17:00 01/31/18 20:10 02/01/18 02:50 02/01/18 07:49 Glucose (Fingerstick) 241 mg/dL 291 mg/dL 266 mg/dL White Blood Count 5.3 x10^3/uL Red Blood Count 4.30 x10^6/uL Hemoglobin 12.7 g/dL Hematocrit 36.7 % Mean Corpuscular Volume 85 fL Mean Corpuscular Hemoglobin 29 pg Mean Corpuscular Hemoglobin Concent 35 g/dL Red Cell Distribution Width 13.5 % Platelet Count 189 x10^3/uL Neutrophils (%) (Auto) 67 % Lymphocytes (%) (Auto) 23 % Monocytes (%) (Auto) 8 % Eosinophils (%) (Auto) 2 % Basophils (%) (Auto) 1 % Neutrophils # (Auto) 3.5 x10^3uL Lymphocytes # (Auto) 1.2 x10^3/uL Monocytes # (Auto) 0.4 x10^3/uL Eosinophils # (Auto) 0.1 x10^3/uL Basophils # (Auto) 0.1 x10^3/uL Prothrombin Time 37.6 SEC Prothromb Time International Ratio 3.9 Sodium Level 137 mmol/L Potassium Level 4.5 mmol/L Chloride Level 102 mmol/L Carbon Dioxide Level 28 mmol/L Anion Gap 7 Blood Urea Nitrogen 9 mg/dL Creatinine 0.7 mg/dL Estimated GFR (Cockcroft-Gault) 91.8 BUN/Creatinine Ratio 13 Glucose Level 343 mg/dL Calcium Level 8.6 mg/dL Total Bilirubin 0.3 mg/dL Aspartate Amino Transf (AST/SGOT) 38 U/L Alanine Aminotransferase (ALT/SGPT) 69 U/L Alkaline Phosphatase 88 U/L Total Protein 6.4 g/dL Albumin 2.7 g/dL Albumin/Globulin Ratio 0.7 PE: GEN: NAD, sitting up in bed, appears comfortable LUNGS: CTAB HEART: RRR ABD: obese, BLQ discomfort - bandlike NEURO/PSYCH: A & O 3 A/P: Factor V Leiden, Coumadin coagulopathy - better, INR 3.9 Lower abd pain - bilateral Abnormal CT - "segmental wall thickening of the descending colon and sigmoid colon... may be due to incomplete distention" Mild elevation in AST and ALT - normal liver on CT, s/p juan carlos -- She says pain remains the same but is tolerating PO w/o diarrhea or bleeding and INR is improved. D/w case management - would ideally pursue colonoscopy as outpatient - will review this w/ Dr. Zaragoza. GABRIELA BRYSON Feb 01, 2018 12:30
--- NOTE | 2018-02-01 14:01 | PDOC ---
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 Onset 2 days ago, associated with blood in stool Pain is cramping, colicky diffuse bilateral upper quadrant radiates to the back also some pain with moving her left hip. has abd pain since fall last no bloody stool since 01/31, still abd pain 02/01, 11/05, vomited 01/31 night INR 3.8 after 2 FFP 01/31 STILL hyperglycemia Vitals Vitals Vital Signs Date Time Temp Pulse Resp B/P (MAP) Pulse Ox O2 Delivery O2 Flow Rate FiO2 02/01/18 11:00 97.9 58 16 109/57 (74) 92 Room Air 97.9 Physical Exam General: Alert, Oriented X3, Cooperative, No acute distress Abdomen: Normal bowel sounds, Soft, Other (Tenderness in bilateral upper quadrants, epigastrium and LLQ) Extremities: No clubbing, No cyanosis, No edema, Normal pulses, No tenderness/ swelling Skin: No rashes, No breakdown, No significant lesion Labs LABS Laboratory Tests Test 01/31/18 17:00 01/31/18 20:10 02/01/18 02:50 02/01/18 07:49 Glucose (Fingerstick) 241 mg/dL (70-99) 291 mg/dL (70-99) 266 mg/dL (70-99) White Blood Count 5.3 x10^3/uL (4.0-11.0) Red Blood Count 4.30 x10^6/uL (3.50-5.40) Hemoglobin 12.7 g/dL (12.0-15.5) Hematocrit 36.7 % (36.0-47.0) Mean Corpuscular Volume 85 fL (79-100) Mean Corpuscular Hemoglobin 29 pg (25-35) Mean Corpuscular Hemoglobin Concent 35 g/dL (31-37) Red Cell Distribution Width 13.5 % (11.5-14.5) Platelet Count 189 x10^3/uL (140-400) Neutrophils (%) (Auto) 67 % (31-73) Lymphocytes (%) (Auto) 23 % (24-48) Monocytes (%) (Auto) 8 % (0-9) Eosinophils (%) (Auto) 2 % (0-3) Basophils (%) (Auto) 1 % (0-3) Neutrophils # (Auto) 3.5 x10^3uL (1.8-7.7) Lymphocytes # (Auto) 1.2 x10^3/uL (1.0-4.8) Monocytes # (Auto) 0.4 x10^3/uL (0.0-1.1) Eosinophils # (Auto) 0.1 x10^3/uL (0.0-0.7) Basophils # (Auto) 0.1 x10^3/uL (0.0-0.2) Prothrombin Time 37.6 SEC (11.7-14.0) Prothromb Time International Ratio 3.9 (0.8-1.1) Sodium Level 137 mmol/L (136-145) Potassium Level 4.5 mmol/L (3.5-5.1) Chloride Level 102 mmol/L (98-107) Carbon Dioxide Level 28 mmol/L (21-32) Anion Gap 7 (6-14) Blood Urea Nitrogen 9 mg/dL (7-20) Creatinine 0.7 mg/dL (0.6-1.0) Estimated GFR (Cockcroft-Gault) 91.8 BUN/Creatinine Ratio 13 (6-20) Glucose Level 343 mg/dL (70-99) Calcium Level 8.6 mg/dL (8.5-10.1) Total Bilirubin 0.3 mg/dL (0.2-1.0) Aspartate Amino Transf (AST/SGOT) 38 U/L (15-37) Alanine Aminotransferase (ALT/SGPT) 69 U/L (14-59) Alkaline Phosphatase 88 U/L (46-116) Total Protein 6.4 g/dL (6.4-8.2) Albumin 2.7 g/dL (3.4-5.0) Albumin/Globulin Ratio 0.7 (1.0-1.7) Test 02/01/18 11:40 Glucose (Fingerstick) 296 mg/dL (70-99) Assessment and Plan Assessmemt and Plan Problems Medical Problems: (1) Coumadin toxicity Status: Acute Comment Review of Relevant I have reviewed the following items tasha (where applicable) has been applied. Labs Laboratory Tests Test 01/30/18 16:39 01/30/18 20:43 01/30/18 22:31 01/31/18 00:38 Glucose (Fingerstick) 342 mg/dL (70-99) 395 mg/dL (70-99) 405 mg/dL (70-99) 327 mg/dL (70-99) Test 01/31/18 06:10 01/31/18 07:56 01/31/18 11:05 01/31/18 11:50 Prothrombin Time 64.6 SEC (11.7-14.0) 62.5 SEC (11.7-14.0) Prothromb Time International Ratio 7.8 (0.8-1.1) 7.4 (0.8-1.1) Sodium Level 134 mmol/L (136-145) Potassium Level 4.2 mmol/L (3.5-5.1) Chloride Level 102 mmol/L (98-107) Carbon Dioxide Level 24 mmol/L (21-32) Anion Gap 8 (6-14) Blood Urea Nitrogen 11 mg/dL (7-20) Creatinine 0.6 mg/dL (0.6-1.0) Estimated GFR (Cockcroft-Gault) 109.6 BUN/Creatinine Ratio 18 (6-20) Glucose Level 332 mg/dL (70-99) Calcium Level 8.2 mg/dL (8.5-10.1) Total Bilirubin 0.2 mg/dL (0.2-1.0) Aspartate Amino Transf (AST/SGOT) 24 U/L (15-37) Alanine Aminotransferase (ALT/SGPT) 51 U/L (14-59) Alkaline Phosphatase 59 U/L (46-116) Total Protein 6.0 g/dL (6.4-8.2) Albumin 2.5 g/dL (3.4-5.0) Albumin/Globulin Ratio 0.7 (1.0-1.7) Glucose (Fingerstick) 293 mg/dL (70-99) 333 mg/dL (70-99) Test 01/31/18 17:00 01/31/18 20:10 02/01/18 02:50 02/01/18 07:49 Glucose (Fingerstick) 241 mg/dL (70-99) 291 mg/dL (70-99) 266 mg/dL (70-99) White Blood Count 5.3 x10^3/uL (4.0-11.0) Red Blood Count 4.30 x10^6/uL (3.50-5.40) Hemoglobin 12.7 g/dL (12.0-15.5) Hematocrit 36.7 % (36.0-47.0) Mean Corpuscular Volume 85 fL (79-100) Mean Corpuscular Hemoglobin 29 pg (25-35) Mean Corpuscular Hemoglobin Concent 35 g/dL (31-37) Red Cell Distribution Width 13.5 % (11.5-14.5) Platelet Count 189 x10^3/uL (140-400) Neutrophils (%) (Auto) 67 % (31-73) Lymphocytes (%) (Auto) 23 % (24-48) Monocytes (%) (Auto) 8 % (0-9) Eosinophils (%) (Auto) 2 % (0-3) Basophils (%) (Auto) 1 % (0-3) Neutrophils # (Auto) 3.5 x10^3uL (1.8-7.7) Lymphocytes # (Auto) 1.2 x10^3/uL (1.0-4.8) Monocytes # (Auto) 0.4 x10^3/uL (0.0-1.1) Eosinophils # (Auto) 0.1 x10^3/uL (0.0-0.7) Basophils # (Auto) 0.1 x10^3/uL (0.0-0.2) Prothrombin Time 37.6 SEC (11.7-14.0) Prothromb Time International Ratio 3.9 (0.8-1.1) Sodium Level 137 mmol/L (136-145) Potassium Level 4.5 mmol/L (3.5-5.1) Chloride Level 102 mmol/L (98-107) Carbon Dioxide Level 28 mmol/L (21-32) Anion Gap 7 (6-14) Blood Urea Nitrogen 9 mg/dL (7-20) Creatinine 0.7 mg/dL (0.6-1.0) Estimated GFR (Cockcroft-Gault) 91.8 BUN/Creatinine Ratio 13 (6-20) Glucose Level 343 mg/dL (70-99) Calcium Level 8.6 mg/dL (8.5-10.1) Total Bilirubin 0.3 mg/dL (0.2-1.0) Aspartate Amino Transf (AST/SGOT) 38 U/L (15-37) Alanine Aminotransferase (ALT/SGPT) 69 U/L (14-59) Alkaline Phosphatase 88 U/L (46-116) Total Protein 6.4 g/dL (6.4-8.2) Albumin 2.7 g/dL (3.4-5.0) Albumin/Globulin Ratio 0.7 (1.0-1.7) Test 02/01/18 11:40 Glucose (Fingerstick) 296 mg/dL (70-99) Laboratory Tests Test 01/31/18 17:00 01/31/18 20:10 02/01/18 02:50 02/01/18 07:49 Glucose (Fingerstick) 241 mg/dL (70-99) 291 mg/dL (70-99) 266 mg/dL (70-99) White Blood Count 5.3 x10^3/uL (4.0-11.0) Red Blood Count 4.30 x10^6/uL (3.50-5.40) Hemoglobin 12.7 g/dL (12.0-15.5) Hematocrit 36.7 % (36.0-47.0) Mean Corpuscular Volume 85 fL (79-100) Mean Corpuscular Hemoglobin 29 pg (25-35) Mean Corpuscular Hemoglobin Concent 35 g/dL (31-37) Red Cell Distribution Width 13.5 % (11.5-14.5) Platelet Count 189 x10^3/uL (140-400) Neutrophils (%) (Auto) 67 % (31-73) Lymphocytes (%) (Auto) 23 % (24-48) Monocytes (%) (Auto) 8 % (0-9) Eosinophils (%) (Auto) 2 % (0-3) Basophils (%) (Auto) 1 % (0-3) Neutrophils # (Auto) 3.5 x10^3uL (1.8-7.7) Lymphocytes # (Auto) 1.2 x10^3/uL (1.0-4.8) Monocytes # (Auto) 0.4 x10^3/uL (0.0-1.1) Eosinophils # (Auto) 0.1 x10^3/uL (0.0-0.7) Basophils # (Auto) 0.1 x10^3/uL (0.0-0.2) Prothrombin Time 37.6 SEC (11.7-14.0) Prothromb Time International Ratio 3.9 (0.8-1.1) Sodium Level 137 mmol/L (136-145) Potassium Level 4.5 mmol/L (3.5-5.1) Chloride Level 102 mmol/L (98-107) Carbon Dioxide Level 28 mmol/L (21-32) Anion Gap 7 (6-14) Blood Urea Nitrogen 9 mg/dL (7-20) Creatinine 0.7 mg/dL (0.6-1.0) Estimated GFR (Cockcroft-Gault) 91.8 BUN/Creatinine Ratio 13 (6-20) Glucose Level 343 mg/dL (70-99) Calcium Level 8.6 mg/dL (8.5-10.1) Total Bilirubin 0.3 mg/dL (0.2-1.0) Aspartate Amino Transf (AST/SGOT) 38 U/L (15-37) Alanine Aminotransferase (ALT/SGPT) 69 U/L (14-59) Alkaline Phosphatase 88 U/L (46-116) Total Protein 6.4 g/dL (6.4-8.2) Albumin 2.7 g/dL (3.4-5.0) Albumin/Globulin Ratio 0.7 (1.0-1.7) Test 02/01/18 11:40 Glucose (Fingerstick) 296 mg/dL (70-99) Medications Current Medications Fentanyl Citrate (Fentanyl 2ml Vial) 50 mcg 1X ONCE IV Last administered on at 20:24; Start 01/29/18 at 20:15; Stop 01/29/18 at 20:16; Status DC Iohexol (Omnipaque 300 Mg/ml) 100 ml STK-MED ONCE .ROUTE ; Start 01/29/18 at 21: 08; Stop 01/29/18 at 21:09; Status DC Metronidazole 100 ml @ 100 mls/hr 1X ONCE IV Last administered on 01/29/18at 23:04; Start 01/29/18 at 22:30; Stop 01/29/18 at 23:29; Status DC Aztreonam 1 gm/ Dextrose 50 ml @ 100 mls/hr Q6HRS IV ; Start 01/30/18 at 06:00 ; Stop 01/30/18 at 06:00; Status DC Sodium Chloride 1,000 ml @ 1,000 mls/hr 1X ONCE IV Last administered on at 23:04; Start 01/29/18 at 22:30; Stop 01/29/18 at 23:29; Status DC Phytonadione (Mephyton Oral Soln) 2.5 mg 1X ONCE PO Last administered on at 23:05; Start 01/29/18 at 22:45; Stop 01/29/18 at 22:46; Status DC Morphine Sulfate (Morphine Sulfate) 4 mg PRN Q2HR PRN IV PAIN Last administered on 01/30/18at 20:41; Start 01/29/18 at 22:45; Stop 01/30/18 at 22:44 ; Status DC Sodium Chloride 1,000 ml @ 100 mls/hr Q10H IV Last administered on 01/30/18at 17:18; Start 01/29/18 at 22:45; Stop 01/30/18 at 22:44; Status DC Aztreonam 1 gm/ Dextrose 50 ml @ 100 mls/hr ONCE ONCE IV Last administered on 01/30/18at 00:11; Start 01/29/18 at 23:00; Stop 01/29/18 at 23:29; Status DC Ondansetron HCl (Zofran) 4 mg PRN Q6HRS PRN IV NAUSEA/VOMITING 1ST CHOICE Last administered on 01/31/18at 23:07; Start 01/30/18 at 01:00 Prochlorperazine Edisylate (Compazine) 10 mg PRN Q6HRS PRN IV NAUSEA/VOMITING 2ND CHOICE; Start 01/30/18 at 01:00 Oxycodone HCl (Roxicodone) 5 mg PRN Q3HRS PRN PO SEVERE PAIN, SEE COMMENTS Last administered on 01/31/18at 00:33; Start 01/30/18 at 01:00 Ketorolac Tromethamine (Toradol 15mg Vial) 15 mg PRN Q6HRS PRN IV MILD PAIN Last administered on 02/01/18 08:08; Start 01/30/18 at 01:00; Stop 02/04/18 at 00:59 Lactulose (Lactulose) 20 gm PRN Q12HR PRN PO CONSTIPATION 2ND CHOICE; Start at 01:00 Insulin Human Lispro (HumaLOG) 0-9 UNITS TIDWMEALS SQ Last administered on 02/01at 12:44; Start 01/30/18 at 08:00 Dextrose (Dextrose 50%-Water Syringe) 12.5 gm PRN Q15MIN PRN IV SEE COMMENTS; Start 01/30/18 at 01:00 Clonazepam (KlonoPIN) 0.5 mg DAILY PO Last administered on 01/30/18at 09:11; Start 01/30/18 at 09:00; Stop 01/31/18 at 08:12; Status DC Insulin Glargine (Lantus) 12 units QHS SQ Last administered on 01/30/18at 20:48 ; Start 01/30/18 at 01:15; Stop 01/31/18 at 12:02; Status DC Pregabalin (Lyrica) 50 mg BID PO Last administered on 02/01/18at 08:10; Start 01/30/18 at 09:00 Sertraline HCl (Zoloft) 50 mg DAILY PO Last administered on 02/01/18at 08:12; Start 01/30/18 at 09:00 Losartan Potassium (Cozaar) 100 mg DAILY PO Last administered on 02/01/18at 08: 14; Start 01/30/18 at 09:00 Non-Formulary Medication (Quinapril/ Hydrochlorothiazide (Quinapril-Hctz 10- 12.5 Mg Tab)) 1 each DAILY PO ; Start 01/30/18 at 09:00; Status UNV Atorvastatin Calcium (Lipitor) 40 mg HS PO Last administered on 01/31/18at 20:04 ; Start 01/30/18 at 21:00 Sumatriptan Succinate (Imitrex) 100 mg PRN Q2HR PRN PO MIGRAINE HEADACHE; Start 01/30/18 at 01:00 Metronidazole 100 ml @ 100 mls/hr Q8HRS IV Last administered on 02/01/18at 05: 56; Start 01/30/18 at 06:00 Ciprofloxacin/ Dextrose 100 ml @ 100 mls/hr Q12HR IV Last administered on 02/01at 09:56; Start 01/30/18 at 01:30 Lisinopril (Prinivil) 10 mg DAILY PO Last administered on 01/31/18at 08:15; Start 01/30/18 at 09:00; Stop 01/31/18 at 15:45; Status DC Hydrochlorothiazide (Microzide) 12.5 mg DAILY PO Last administered on at 08:11; Start 01/30/18 at 09:00 Iohexol (Omnipaque 300 Mg/ml) 100 ml STK-MED ONCE .ROUTE ; Start 01/30/18 at 03: 45; Stop 01/30/18 at 03:46; Status DC Insulin Glargine (Lantus) 12 units 1X ONCE SQ Last administered on 01/30/18at 09:17; Start 01/30/18 at 09:00; Stop 01/30/18 at 09:01; Status DC Insulin Human Lispro (HumaLOG) 12 units 1X ONCE SQ Last administered on at 09:17; Start 01/30/18 at 09:00; Stop 01/30/18 at 09:01; Status DC Insulin Human Lispro (HumaLOG) 8 units 1X ONCE SQ Last administered on at 23:23; Start 01/30/18 at 23:00; Stop 01/30/18 at 23:03; Status DC Morphine Sulfate (Morphine Sulfate) 4 mg PRN Q2HR PRN IV MOD - SEVERE PAIN 2ND CHOICE Last administered on 02/01/18at 09:57; Start 01/31/18 at 01:00 Clonazepam (KlonoPIN) 0.5 mg PRN DAILY PRN PO ANXIETY / AGITATION; Start at 08:15 Lactobacillus Rhamnosus (Culturelle) 1 cap BID PO Last administered on at 08:12; Start 01/31/18 at 21:00 Insulin Glargine (Lantus) 30 units QHS SQ Last administered on 01/31/18at 20:15 ; Start 01/31/18 at 21:00; Stop 02/01/18 at 10:27; Status DC Insulin Human Lispro (HumaLOG) 10 units TIDAC SQ Last administered on at 08:15; Start 01/31/18 at 12:00; Stop 02/01/18 at 10:27; Status DC Influenza Virus Vaccine (Afluria Trivalent [id number] Syringe) 0.5 ml ONCE ONCE VAX IM Last administered on 02/01/18at 08:17; Start 02/01/18 at 09:00; Stop 02/01/18 at 09:01; Status DC Dicyclomine HCl (Bentyl) 10 mg PRN QID PRN PO abd pain; Start 01/31/18 at 14:30 Ondansetron HCl (Zofran) 4 mg PRN Q6HRS PRN IV NAUSEA/VOMITING; Start 01/31/18 at 15:45; Status Cancel Morphine Sulfate (Morphine Sulfate) 2 mg PRN Q2HR PRN IV MOD TO SEVERE PAIN 1ST CHOICE; Start 01/31/18 at 15:45 Tramadol HCl (Ultram) 50 mg PRN Q6HRS PRN PO MILD TO MODERATE PAIN Last administered on 01/31/18at 17:31; Start 01/31/18 at 15:45 Docusate Sodium (Colace) 100 mg PRN DAILY PRN PO CONSTIPATION 1ST CHOICE; Start 01/31/18 at 15:45 Insulin Human Lispro (HumaLOG) 4 units 1X ONCE SQ Last administered on at 22:26; Start 01/31/18 at 22:00; Stop 01/31/18 at 22:01; Status DC Insulin Glargine (Lantus) 45 units QHS SQ ; Start 02/01/18 at 21:00 Insulin Human Lispro (HumaLOG) 15 units TIDAC SQ Last administered on at 12:44; Start 02/01/18 at 11:30 Active Scripts Active Reported Atacand (Candesartan Cilexetil) 32 Mg Tablet 1 Tab PO DAILY Quinapril-Hctz 10-12.5 Mg Tab (Quinapril/Hydrochlorothiazide) 1 Each Tablet 1 Each PO DAILY Relpax (Eletriptan Hbr) 20 Mg Tablet 20 Mg PO Reglan (Metoclopramide Hcl) 10 Mg Tablet 10 Mg PO TIDWMEALHC Lyrica (Pregabalin) 50 Mg Capsule 50 Mg PO BID Clonazepam 0.5 Mg Tablet 1 Tab PO PRN DAILY PRN Zoloft (Sertraline Hcl) 50 Mg Tablet 1 Tab PO DAILY Crestor (Rosuvastatin Calcium) 10 Mg Tablet 1 Tab PO DAILY Lantus Solostar (Insulin Glargine,Hum.rec.anlog) 100 Unit/1 Ml Insuln.pen 66 Unit SQ QHS Vitals/I & O Vital Sign - Last 24 Hours 01/31/18 01/31/18 01/31/18 01/31/18 14:48 15:00 15:20 15:43 Temp 97.5 97.5 97.5 97.5 Pulse 70 63 Resp 16 18 B/P (MAP) 119/63 (81) 124/81 Pulse Ox 94 100 100 O2 Delivery Room Air Room Air 01/31/18 01/31/18 01/31/18 01/31/18 16:00 17:00 17:31 17:31 Temp 98.8 97.5 98.8 97.5 Pulse 63 65 Resp 18 18 B/P (MAP) 125/77 129/79 Pulse Ox 100 O2 Delivery Room Air Room Air 01/31/18 01/31/18 01/31/18 01/31/18 18:00 18:15 18:30 18:31 Temp 97.5 97.8 98.1 97.5 97.8 98.1 Pulse 71 68 68 Resp 18 18 18 B/P (MAP) 117/66 117/68 113/63 Pulse Ox 94 O2 Delivery Room Air 01/31/18 01/31/18 01/31/18 01/31/18 19:30 19:30 19:52 20:05 Temp 97.5 97.5 97.5 97.5 Pulse 69 69 Resp 18 18 B/P (MAP) 109/70 (83) 109/70 Pulse Ox 90 96 O2 Delivery Room Air Room Air Room Air 01/31/18 01/31/18 01/31/18 01/31/18 20:10 20:30 20:30 21:30 Temp 97.5 97.5 97.7 97.5 97.5 97.7 Pulse 66 66 66 Resp 18 18 18 B/P (MAP) 132/87 132/87 (102) 134/76 (95) Pulse Ox 95 96 O2 Delivery Room Air Room Air Room Air 01/31/18 01/31/18 01/31/18 02/01/18 21:30 22:30 23:06 03:00 Temp 97.7 97.5 98.0 97.7 97.5 98.0 Pulse 66 70 75 Resp 18 18 18 B/P (MAP) 134/76 135/71 (92) 118/66 (83) Pulse Ox 92 92 O2 Delivery Room Air Room Air Room Air 02/01/18 02/01/18 02/01/18 02/01/18 03:37 06:05 07:10 08:00 Temp 97.7 97.7 Pulse 69 Resp 16 B/P (MAP) 103/58 (73) Pulse Ox 91 O2 Delivery Room Air Room Air Room Air Room Air 02/01/18 02/01/18 02/01/18 02/01/18 08:14 09:57 10:34 11:00 Temp 97.9 97.9 Pulse 69 58 Resp 20 16 16 B/P (MAP) 103/58 109/57 (74) Pulse Ox 92 O2 Delivery Room Air Room Air Room Air Intake and Output 01/31/18 01/31/18 02/01/18 15:00 23:00 07:00 Intake Total 419 ml 400 ml Balance 419 ml 400 ml DEXTER REYES MD Feb 01, 2018 14:01
[2018-02-01 15:00] VITALS: BP 111/58
[2018-02-01 19:30] VITALS: BP 119/72
[2018-02-01] MEDS ORDERED: INSULIN GLARGINE 300 UNITS/3 ML INSULN.PEN. SQ SCH (21:00)
[2018-02-01] MEDS: ATORVASTATIN CALCIUM 40 MG TABLET. PO SCH (21:34)
[2018-02-01 23:25] VITALS: BP 141/73
[2018-02-02] MEDS: KETOROLAC 15 MG/ML VIAL. IV PRN ×4 (02:16→23:40)
[2018-02-02] MEDS: MORPHINE SULFATE 4 MG/ML VIAL. IV PRN ×3 (02:17→12:12)
[2018-02-02 03:19] VITALS: BP 125/85
[2018-02-02 04:40] LABS: BASO % 1 % (0-3); EOS # 0.1 x10^3/uL (0.0-0.7); EOS % 2 % (0-3); HEMATOCRIT 38.9 % (36.0-47.0); HEMOGLOBIN 13.3 g/dL (12.0-15.5); LYMPH # 1.2 x10^3/uL (1.0-4.8); LYMPH % 22 % (24-48); MEAN CORPUSCULAR HEMOGLOBIN 29 pg (25-35); MEAN CORPUSCULAR HGB CONC 34 g/dL (31-37); MEAN CORPUSCULAR VOLUME 86 fL (79-100); MONO # 0.4 x10^3/uL (0.0-1.1); MONO % 7 % (0-9); NEUT # 3.7 x10^3uL (1.8-7.7); NEUT % 68 % (31-73); PLATELET COUNT 200 x10^3/uL (140-400); RED BLOOD COUNT 4.56 x10^6/uL (3.50-5.40); RED CELL DISTRIBUTION WIDTH 13.9 % (11.5-14.5); WHITE BLOOD COUNT 5.4 x10^3/uL (4.0-11.0)
[2018-02-02 04:44] LABS: CALCIUM 9.1 mg/dL (8.5-10.1); CREATININE 0.6 mg/dL (0.6-1.0); GFR 109.6
[2018-02-02 04:46] LABS: PROTHROMBIN TIME PATIENT 47.6 SEC (11.7-14.0)
[2018-02-02 07:00] VITALS: BP 109/45
[2018-02-02] MEDS: LACTOBACILLUS RHAMNOSUS GG 1 CAPSULE. PO SCH ×2 (08:10→20:24)
[2018-02-02] MEDS: hydroCHLOROthiazide 12.5 MG CAPSULE PO SCH (08:10)
[2018-02-02] MEDS: PREGABALIN 50 MG CAPSULE PO SCH ×2 (08:10→20:24)
[2018-02-02] MEDS: LOSARTAN POTASSIUM 50 MG TABLET. PO SCH (08:11)
[2018-02-02] MEDS: CIPROFLOXACIN 200MG PREMIX 100 ML IV SCH (08:12)
[2018-02-02] MEDS: INSULIN LISPRO 300 UNITS/3 ML INSULN.PEN. SQ SCH ×6 (08:14→17:20)
[2018-02-02] MEDS: SERTRALINE 50 MG TABLET. PO SCH (08:20)
[2018-02-02 11:00] VITALS: BP 136/88
[2018-02-02] MEDS ORDERED: PHYTONADIONE (VIT K1) IV 10 MG in IV DEXTROSE 5% 50 ML IV ONE (11:00)
[2018-02-02] MEDS: ONDANSETRON PF 4 MG/2 ML VIAL. IV PRN (12:18)
--- NOTE | 2018-02-02 12:23 | PDOC ---
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 talked to gi, consider dc abx. dc in 1-2ds. 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 Onset 2 days ago, associated with blood in stool Pain is cramping, colicky diffuse bilateral upper quadrant radiates to the back also some pain with moving her left hip. has abd pain since fall last . no diarrhea ever. no bloody stool since 01/31, still abd pain 02/01, 11/05, vomited 01/31 night. 02/02 , abd pain slightly better, -10/05 no BM since 01/31. INR 3.8 after 2 FFP 01/31 today 5 STILL hyperglycemia Vitals Vitals Vital Signs Date Time Temp Pulse Resp B/P (MAP) Pulse Ox O2 Delivery O2 Flow Rate FiO2 02/02/18 11:00 97.7 75 20 136/88 (104) 90 Room Air 97.7 Physical Exam General: Alert, Oriented X3, Cooperative, No acute distress Abdomen: Normal bowel sounds, Soft, Other (Tenderness in bilateral upper quadrants, epigastrium and LLQ) Extremities: No clubbing, No cyanosis, No edema, Normal pulses, No tenderness/ swelling Skin: No rashes, No breakdown, No significant lesion Labs LABS Laboratory Tests Test 02/01/18 16:25 02/01/18 21:19 02/02/18 03:20 02/02/18 07:29 Glucose (Fingerstick) 197 mg/dL (70-99) 203 mg/dL (70-99) 253 mg/dL (70-99) White Blood Count 5.4 x10^3/uL (4.0-11.0) Red Blood Count 4.56 x10^6/uL (3.50-5.40) Hemoglobin 13.3 g/dL (12.0-15.5) Hematocrit 38.9 % (36.0-47.0) Mean Corpuscular Volume 86 fL (79-100) Mean Corpuscular Hemoglobin 29 pg (25-35) Mean Corpuscular Hemoglobin Concent 34 g/dL (31-37) Red Cell Distribution Width 13.9 % (11.5-14.5) Platelet Count 200 x10^3/uL (140-400) Neutrophils (%) (Auto) 68 % (31-73) Lymphocytes (%) (Auto) 22 % (24-48) Monocytes (%) (Auto) 7 % (0-9) Eosinophils (%) (Auto) 2 % (0-3) Basophils (%) (Auto) 1 % (0-3) Neutrophils # (Auto) 3.7 x10^3uL (1.8-7.7) Lymphocytes # (Auto) 1.2 x10^3/uL (1.0-4.8) Monocytes # (Auto) 0.4 x10^3/uL (0.0-1.1) Eosinophils # (Auto) 0.1 x10^3/uL (0.0-0.7) Basophils # (Auto) 0.0 x10^3/uL (0.0-0.2) Prothrombin Time 47.6 SEC (11.7-14.0) Prothromb Time International Ratio 5.3 (0.8-1.1) Sodium Level 140 mmol/L (136-145) Potassium Level 4.0 mmol/L (3.5-5.1) Chloride Level 103 mmol/L (98-107) Carbon Dioxide Level 29 mmol/L (21-32) Anion Gap 8 (6-14) Blood Urea Nitrogen 11 mg/dL (7-20) Creatinine 0.6 mg/dL (0.6-1.0) Estimated GFR (Cockcroft-Gault) 109.6 Glucose Level 237 mg/dL (70-99) Calcium Level 9.1 mg/dL (8.5-10.1) Test 02/02/18 11:23 Glucose (Fingerstick) 312 mg/dL (70-99) Assessment and Plan Assessmemt and Plan Problems Medical Problems: (1) Coumadin toxicity Status: Acute Comment Review of Relevant I have reviewed the following items tasha (where applicable) has been applied. Labs Laboratory Tests Test 01/31/18 17:00 01/31/18 20:10 02/01/18 02:50 02/01/18 07:49 Glucose (Fingerstick) 241 mg/dL (70-99) 291 mg/dL (70-99) 266 mg/dL (70-99) White Blood Count 5.3 x10^3/uL (4.0-11.0) Red Blood Count 4.30 x10^6/uL (3.50-5.40) Hemoglobin 12.7 g/dL (12.0-15.5) Hematocrit 36.7 % (36.0-47.0) Mean Corpuscular Volume 85 fL (79-100) Mean Corpuscular Hemoglobin 29 pg (25-35) Mean Corpuscular Hemoglobin Concent 35 g/dL (31-37) Red Cell Distribution Width 13.5 % (11.5-14.5) Platelet Count 189 x10^3/uL (140-400) Neutrophils (%) (Auto) 67 % (31-73) Lymphocytes (%) (Auto) 23 % (24-48) Monocytes (%) (Auto) 8 % (0-9) Eosinophils (%) (Auto) 2 % (0-3) Basophils (%) (Auto) 1 % (0-3) Neutrophils # (Auto) 3.5 x10^3uL (1.8-7.7) Lymphocytes # (Auto) 1.2 x10^3/uL (1.0-4.8) Monocytes # (Auto) 0.4 x10^3/uL (0.0-1.1) Eosinophils # (Auto) 0.1 x10^3/uL (0.0-0.7) Basophils # (Auto) 0.1 x10^3/uL (0.0-0.2) Prothrombin Time 37.6 SEC (11.7-14.0) Prothromb Time International Ratio 3.9 (0.8-1.1) Sodium Level 137 mmol/L (136-145) Potassium Level 4.5 mmol/L (3.5-5.1) Chloride Level 102 mmol/L (98-107) Carbon Dioxide Level 28 mmol/L (21-32) Anion Gap 7 (6-14) Blood Urea Nitrogen 9 mg/dL (7-20) Creatinine 0.7 mg/dL (0.6-1.0) Estimated GFR (Cockcroft-Gault) 91.8 BUN/Creatinine Ratio 13 (6-20) Glucose Level 343 mg/dL (70-99) Calcium Level 8.6 mg/dL (8.5-10.1) Total Bilirubin 0.3 mg/dL (0.2-1.0) Aspartate Amino Transf (AST/SGOT) 38 U/L (15-37) Alanine Aminotransferase (ALT/SGPT) 69 U/L (14-59) Alkaline Phosphatase 88 U/L (46-116) Total Protein 6.4 g/dL (6.4-8.2) Albumin 2.7 g/dL (3.4-5.0) Albumin/Globulin Ratio 0.7 (1.0-1.7) Test 02/01/18 11:40 02/01/18 16:25 02/01/18 21:19 02/02/18 03:20 Glucose (Fingerstick) 296 mg/dL (70-99) 197 mg/dL (70-99) 203 mg/dL (70-99) White Blood Count 5.4 x10^3/uL (4.0-11.0) Red Blood Count 4.56 x10^6/uL (3.50-5.40) Hemoglobin 13.3 g/dL (12.0-15.5) Hematocrit 38.9 % (36.0-47.0) Mean Corpuscular Volume 86 fL (79-100) Mean Corpuscular Hemoglobin 29 pg (25-35) Mean Corpuscular Hemoglobin Concent 34 g/dL (31-37) Red Cell Distribution Width 13.9 % (11.5-14.5) Platelet Count 200 x10^3/uL (140-400) Neutrophils (%) (Auto) 68 % (31-73) Lymphocytes (%) (Auto) 22 % (24-48) Monocytes (%) (Auto) 7 % (0-9) Eosinophils (%) (Auto) 2 % (0-3) Basophils (%) (Auto) 1 % (0-3) Neutrophils # (Auto) 3.7 x10^3uL (1.8-7.7) Lymphocytes # (Auto) 1.2 x10^3/uL (1.0-4.8) Monocytes # (Auto) 0.4 x10^3/uL (0.0-1.1) Eosinophils # (Auto) 0.1 x10^3/uL (0.0-0.7) Basophils # (Auto) 0.0 x10^3/uL (0.0-0.2) Prothrombin Time 47.6 SEC (11.7-14.0) Prothromb Time International Ratio 5.3 (0.8-1.1) Sodium Level 140 mmol/L (136-145) Potassium Level 4.0 mmol/L (3.5-5.1) Chloride Level 103 mmol/L (98-107) Carbon Dioxide Level 29 mmol/L (21-32) Anion Gap 8 (6-14) Blood Urea Nitrogen 11 mg/dL (7-20) Creatinine 0.6 mg/dL (0.6-1.0) Estimated GFR (Cockcroft-Gault) 109.6 Glucose Level 237 mg/dL (70-99) Calcium Level 9.1 mg/dL (8.5-10.1) Test 02/02/18 07:29 02/02/18 11:23 Glucose (Fingerstick) 253 mg/dL (70-99) 312 mg/dL (70-99) Laboratory Tests Test 02/01/18 16:25 02/01/18 21:19 02/02/18 03:20 02/02/18 07:29 Glucose (Fingerstick) 197 mg/dL (70-99) 203 mg/dL (70-99) 253 mg/dL (70-99) White Blood Count 5.4 x10^3/uL (4.0-11.0) Red Blood Count 4.56 x10^6/uL (3.50-5.40) Hemoglobin 13.3 g/dL (12.0-15.5) Hematocrit 38.9 % (36.0-47.0) Mean Corpuscular Volume 86 fL (79-100) Mean Corpuscular Hemoglobin 29 pg (25-35) Mean Corpuscular Hemoglobin Concent 34 g/dL (31-37) Red Cell Distribution Width 13.9 % (11.5-14.5) Platelet Count 200 x10^3/uL (140-400) Neutrophils (%) (Auto) 68 % (31-73) Lymphocytes (%) (Auto) 22 % (24-48) Monocytes (%) (Auto) 7 % (0-9) Eosinophils (%) (Auto) 2 % (0-3) Basophils (%) (Auto) 1 % (0-3) Neutrophils # (Auto) 3.7 x10^3uL (1.8-7.7) Lymphocytes # (Auto) 1.2 x10^3/uL (1.0-4.8) Monocytes # (Auto) 0.4 x10^3/uL (0.0-1.1) Eosinophils # (Auto) 0.1 x10^3/uL (0.0-0.7) Basophils # (Auto) 0.0 x10^3/uL (0.0-0.2) Prothrombin Time 47.6 SEC (11.7-14.0) Prothromb Time International Ratio 5.3 (0.8-1.1) Sodium Level 140 mmol/L (136-145) Potassium Level 4.0 mmol/L (3.5-5.1) Chloride Level 103 mmol/L (98-107) Carbon Dioxide Level 29 mmol/L (21-32) Anion Gap 8 (6-14) Blood Urea Nitrogen 11 mg/dL (7-20) Creatinine 0.6 mg/dL (0.6-1.0) Estimated GFR (Cockcroft-Gault) 109.6 Glucose Level 237 mg/dL (70-99) Calcium Level 9.1 mg/dL (8.5-10.1) Test 02/02/18 11:23 Glucose (Fingerstick) 312 mg/dL (70-99) Medications Current Medications Fentanyl Citrate (Fentanyl 2ml Vial) 50 mcg 1X ONCE IV Last administered on at 20:24; Start 01/29/18 at 20:15; Stop 01/29/18 at 20:16; Status DC Iohexol (Omnipaque 300 Mg/ml) 100 ml STK-MED ONCE .ROUTE ; Start 01/29/18 at 21: 08; Stop 01/29/18 at 21:09; Status DC Metronidazole 100 ml @ 100 mls/hr 1X ONCE IV Last administered on 01/29/18at 23:04; Start 01/29/18 at 22:30; Stop 01/29/18 at 23:29; Status DC Aztreonam 1 gm/ Dextrose 50 ml @ 100 mls/hr Q6HRS IV ; Start 01/30/18 at 06:00 ; Stop 01/30/18 at 06:00; Status DC Sodium Chloride 1,000 ml @ 1,000 mls/hr 1X ONCE IV Last administered on at 23:04; Start 01/29/18 at 22:30; Stop 01/29/18 at 23:29; Status DC Phytonadione (Mephyton Oral Soln) 2.5 mg 1X ONCE PO Last administered on at 23:05; Start 01/29/18 at 22:45; Stop 01/29/18 at 22:46; Status DC Morphine Sulfate (Morphine Sulfate) 4 mg PRN Q2HR PRN IV PAIN Last administered on 01/30/18at 20:41; Start 01/29/18 at 22:45; Stop 01/30/18 at 22:44 ; Status DC Sodium Chloride 1,000 ml @ 100 mls/hr Q10H IV Last administered on 01/30/18at 17:18; Start 01/29/18 at 22:45; Stop 01/30/18 at 22:44; Status DC Aztreonam 1 gm/ Dextrose 50 ml @ 100 mls/hr ONCE ONCE IV Last administered on 01/30/18at 00:11; Start 01/29/18 at 23:00; Stop 01/29/18 at 23:29; Status DC Ondansetron HCl (Zofran) 4 mg PRN Q6HRS PRN IV NAUSEA/VOMITING 1ST CHOICE Last administered on 01/31/18at 23:07; Start 01/30/18 at 01:00 Prochlorperazine Edisylate (Compazine) 10 mg PRN Q6HRS PRN IV NAUSEA/VOMITING 2ND CHOICE; Start 01/30/18 at 01:00 Oxycodone HCl (Roxicodone) 5 mg PRN Q3HRS PRN PO SEVERE PAIN, SEE COMMENTS Last administered on 01/31/18at 00:33; Start 01/30/18 at 01:00 Ketorolac Tromethamine (Toradol 15mg Vial) 15 mg PRN Q6HRS PRN IV MILD PAIN Last administered on 02/02/18at 08:23; Start 01/30/18 at 01:00; Stop 02/04/18 at 00:59 Lactulose (Lactulose) 20 gm PRN Q12HR PRN PO CONSTIPATION 2ND CHOICE; Start at 01:00 Insulin Human Lispro (HumaLOG) 0-9 UNITS TIDWMEALS SQ Last administered on 02/02at 08:18; Start 01/30/18 at 08:00 Dextrose (Dextrose 50%-Water Syringe) 12.5 gm PRN Q15MIN PRN IV SEE COMMENTS; Start 01/30/18 at 01:00 Clonazepam (KlonoPIN) 0.5 mg DAILY PO Last administered on 01/30/18at 09:11; Start 01/30/18 at 09:00; Stop 01/31/18 at 08:12; Status DC Insulin Glargine (Lantus) 12 units QHS SQ Last administered on 01/30/18at 20:48 ; Start 01/30/18 at 01:15; Stop 01/31/18 at 12:02; Status DC Pregabalin (Lyrica) 50 mg BID PO Last administered on 02/02/18at 08:10; Start 01/30/18 at 09:00 Sertraline HCl (Zoloft) 50 mg DAILY PO Last administered on 02/02/18at 08:20; Start 01/30/18 at 09:00 Losartan Potassium (Cozaar) 100 mg DAILY PO Last administered on 02/02/18at 08: 11; Start 01/30/18 at 09:00 Non-Formulary Medication (Quinapril/ Hydrochlorothiazide (Quinapril-Hctz 10- 12.5 Mg Tab)) 1 each DAILY PO ; Start 01/30/18 at 09:00; Status UNV Atorvastatin Calcium (Lipitor) 40 mg HS PO Last administered on 02/01/18at 21:34 ; Start 01/30/18 at 21:00 Sumatriptan Succinate (Imitrex) 100 mg PRN Q2HR PRN PO MIGRAINE HEADACHE; Start 01/30/18 at 01:00 Metronidazole 100 ml @ 100 mls/hr Q8HRS IV Last administered on 02/02/18at 06: 20; Start 01/30/18 at 06:00 Ciprofloxacin/ Dextrose 100 ml @ 100 mls/hr Q12HR IV Last administered on 02/02at 08:12; Start 01/30/18 at 01:30 Lisinopril (Prinivil) 10 mg DAILY PO Last administered on 01/31/18at 08:15; Start 01/30/18 at 09:00; Stop 01/31/18 at 15:45; Status DC Hydrochlorothiazide (Microzide) 12.5 mg DAILY PO Last administered on at 08:10; Start 01/30/18 at 09:00 Iohexol (Omnipaque 300 Mg/ml) 100 ml STK-MED ONCE .ROUTE ; Start 01/30/18 at 03: 45; Stop 01/30/18 at 03:46; Status DC Insulin Glargine (Lantus) 12 units 1X ONCE SQ Last administered on 01/30/18at 09:17; Start 01/30/18 at 09:00; Stop 01/30/18 at 09:01; Status DC Insulin Human Lispro (HumaLOG) 12 units 1X ONCE SQ Last administered on at 09:17; Start 01/30/18 at 09:00; Stop 01/30/18 at 09:01; Status DC Insulin Human Lispro (HumaLOG) 8 units 1X ONCE SQ Last administered on at 23:23; Start 01/30/18 at 23:00; Stop 01/30/18 at 23:03; Status DC Morphine Sulfate (Morphine Sulfate) 4 mg PRN Q2HR PRN IV MOD - SEVERE PAIN 2ND CHOICE Last administered on 02/02/18at 08:24; Start 01/31/18 at 01:00 Clonazepam (KlonoPIN) 0.5 mg PRN DAILY PRN PO ANXIETY / AGITATION; Start at 08:15 Lactobacillus Rhamnosus (Culturelle) 1 cap BID PO Last administered on at 08:10; Start 01/31/18 at 21:00 Insulin Glargine (Lantus) 30 units QHS SQ Last administered on 01/31/18at 20:15 ; Start 01/31/18 at 21:00; Stop 02/01/18 at 10:27; Status DC Insulin Human Lispro (HumaLOG) 10 units TIDAC SQ Last administered on at 08:15; Start 01/31/18 at 12:00; Stop 02/01/18 at 10:27; Status DC Influenza Virus Vaccine (Afluria Trivalent [id number] Syringe) 0.5 ml ONCE ONCE VAX IM Last administered on 02/01/18at 08:17; Start 02/01/18 at 09:00; Stop 02/01/18 at 09:01; Status DC Dicyclomine HCl (Bentyl) 10 mg PRN QID PRN PO abd pain; Start 01/31/18 at 14:30 Ondansetron HCl (Zofran) 4 mg PRN Q6HRS PRN IV NAUSEA/VOMITING; Start 01/31/18 at 15:45; Status Cancel Morphine Sulfate (Morphine Sulfate) 2 mg PRN Q2HR PRN IV MOD TO SEVERE PAIN 1ST CHOICE; Start 01/31/18 at 15:45 Tramadol HCl (Ultram) 50 mg PRN Q6HRS PRN PO MILD TO MODERATE PAIN Last administered on 01/31/18at 17:31; Start 01/31/18 at 15:45 Docusate Sodium (Colace) 100 mg PRN DAILY PRN PO CONSTIPATION 1ST CHOICE; Start 01/31/18 at 15:45 Insulin Human Lispro (HumaLOG) 4 units 1X ONCE SQ Last administered on at 22:26; Start 01/31/18 at 22:00; Stop 01/31/18 at 22:01; Status DC Insulin Glargine (Lantus) 45 units QHS SQ Last administered on 02/01/18at 21:40 ; Start 02/01/18 at 21:00; Stop 02/02/18 at 10:27; Status DC Insulin Human Lispro (HumaLOG) 15 units TIDAC SQ Last administered on at 08:14; Start 02/01/18 at 11:30; Stop 02/02/18 at 10:27; Status DC Insulin Glargine (Lantus) 60 units QHS SQ ; Start 02/02/18 at 21:00 Insulin Human Lispro (HumaLOG) 20 units TIDAC SQ ; Start 02/02/18 at 11:30 Phytonadione 10 mg/Dextrose 51 ml @ 102 mls/hr 1X ONCE IV ; Start 02/02/18 at 11:00; Stop 02/02/18 at 11:29; Status DC Active Scripts Active Reported Atacand (Candesartan Cilexetil) 32 Mg Tablet 1 Tab PO DAILY Quinapril-Hctz 10-12.5 Mg Tab (Quinapril/Hydrochlorothiazide) 1 Each Tablet 1 Each PO DAILY Relpax (Eletriptan Hbr) 20 Mg Tablet 20 Mg PO Reglan (Metoclopramide Hcl) 10 Mg Tablet 10 Mg PO TIDWMEALHC Lyrica (Pregabalin) 50 Mg Capsule 50 Mg PO BID Clonazepam 0.5 Mg Tablet 1 Tab PO PRN DAILY PRN Zoloft (Sertraline Hcl) 50 Mg Tablet 1 Tab PO DAILY Crestor (Rosuvastatin Calcium) 10 Mg Tablet 1 Tab PO DAILY Lantus Solostar (Insulin Glargine,Hum.rec.anlog) 100 Unit/1 Ml Insuln.pen 66 Unit SQ QHS Vitals/I & O Vital Sign - Last 24 Hours 02/01/18 02/01/18 02/01/18 02/01/18 14:58 15:00 18:40 19:15 Temp 97.7 97.7 Pulse 66 Resp 18 16 16 B/P (MAP) 111/58 (75) Pulse Ox 92 91 O2 Delivery Room Air Room Air Room Air 02/01/18 02/01/18 02/01/18 02/01/18 19:30 20:00 21:34 23:25 Temp 98.5 97.3 98.5 97.3 Pulse 65 62 Resp 18 16 B/P (MAP) 119/72 (88) 141/73 (95) Pulse Ox 95 94 O2 Delivery Room Air Room Air Room Air Room Air 02/02/18 02/02/18 02/02/18 02/02/18 02:17 02:47 03:19 07:00 Temp 98.0 97.7 98.0 97.7 Pulse 63 75 Resp 16 16 20 B/P (MAP) 125/85 (98) 109/45 (66) Pulse Ox 91 91 O2 Delivery Room Air Room Air Room Air Room Air 02/02/18 02/02/18 02/02/18 08:11 08:24 11:00 Temp 97.7 97.7 Pulse 75 75 Resp 16 20 B/P (MAP) 109/45 136/88 (104) Pulse Ox 90 O2 Delivery Room Air Room Air Intake and Output 02/01/18 02/01/18 02/02/18 15:00 23:00 07:00 Intake Total 250 ml 150 ml 780 ml Balance 250 ml 150 ml 780 ml DEXTER REYES MD Feb 02, 2018 12:23
[2018-02-02] MEDS ORDERED: INSULIN GLARGINE 300 UNITS/3 ML INSULN.PEN. SQ ONE (12:30)
--- NOTE | 2018-02-02 14:50 | PDOC ---
Subjective: Subjective: Abd pain persists. Touching it makes it worse. Hasn't stooled in a couple days. Objective: Vital Signs: Vital Signs Date Time Temp Pulse Resp B/P (MAP) Pulse Ox O2 Delivery O2 Flow Rate FiO2 02/02/18 12:12 16 Room Air 02/02/18 11:00 97.7 75 136/88 (104) 90 97.7 Labs: Laboratory Tests Test 02/01/18 16:25 02/01/18 21:19 02/02/18 03:20 02/02/18 07:29 Glucose (Fingerstick) 197 mg/dL 203 mg/dL 253 mg/dL White Blood Count 5.4 x10^3/uL Red Blood Count 4.56 x10^6/uL Hemoglobin 13.3 g/dL Hematocrit 38.9 % Mean Corpuscular Volume 86 fL Mean Corpuscular Hemoglobin 29 pg Mean Corpuscular Hemoglobin Concent 34 g/dL Red Cell Distribution Width 13.9 % Platelet Count 200 x10^3/uL Neutrophils (%) (Auto) 68 % Lymphocytes (%) (Auto) 22 % Monocytes (%) (Auto) 7 % Eosinophils (%) (Auto) 2 % Basophils (%) (Auto) 1 % Neutrophils # (Auto) 3.7 x10^3uL Lymphocytes # (Auto) 1.2 x10^3/uL Monocytes # (Auto) 0.4 x10^3/uL Eosinophils # (Auto) 0.1 x10^3/uL Basophils # (Auto) 0.0 x10^3/uL Prothrombin Time 47.6 SEC Prothromb Time International Ratio 5.3 Sodium Level 140 mmol/L Potassium Level 4.0 mmol/L Chloride Level 103 mmol/L Carbon Dioxide Level 29 mmol/L Anion Gap 8 Blood Urea Nitrogen 11 mg/dL Creatinine 0.6 mg/dL Estimated GFR (Cockcroft-Gault) 109.6 Glucose Level 237 mg/dL Calcium Level 9.1 mg/dL Test 02/02/18 11:23 Glucose (Fingerstick) 312 mg/dL PE: GEN: NAD, watching a show on her phone, lights off LUNGS: CTAB HEART: RRR ABD: NABS, soft, obese, tender across abdomen below umbilicus - nonspecific, bruising noted NEURO/PSYCH: A & O 3 A/P: Factor V Leiden, Coumadin coagulopathy - INR worse DM Abd pain Abnormal CT - "segmental wall thickening of the descending colon and sigmoid colon... may be due to incomplete distention" -- Plans to pursue outpt colonoscopy. Still on IV atbx. Hasn't tried Bentyl. Seems morphine dose reduced today, also has Roxicodone and Tramadol. Has some things ordered for constipation PRN. GABRIELA BRYSON Feb 02, 2018 14:50
[2018-02-02 15:00] VITALS: BP 133/72
[2018-02-02] MEDS: MORPHINE SULFATE 2 MG/ML VIAL. IV PRN ×2 (16:57→20:21)
[2018-02-02] MEDS: POLYETHYLENE GLYCOL 3350 17 GM PACKET. PO SCH (17:01)
[2018-02-02 19:00] VITALS: BP 126/76
[2018-02-02] MEDS: ATORVASTATIN CALCIUM 40 MG TABLET. PO SCH (20:24)
[2018-02-02] MEDS: CIPROFLOXACIN HCL 250 MG TABLET. PO SCH (20:24)
[2018-02-02] MEDS ORDERED: INSULIN GLARGINE 300 UNITS/3 ML INSULN.PEN. SQ SCH (21:00)
[2018-02-02] MEDS: metroNIDAZOLE 500 MG TABLET PO SCH (21:40)
[2018-02-02 23:00] VITALS: BP 158/94
[2018-02-03] MEDS: oxyCODONE IR 5 MG TABLET PO PRN (00:37)
[2018-02-03] MEDS: MORPHINE SULFATE 2 MG/ML VIAL. IV PRN ×4 (00:47→17:20)
[2018-02-03 03:00] VITALS: BP 109/95
[2018-02-03 04:51] LABS: PROTHROMBIN TIME PATIENT 19.2 SEC (11.7-14.0)
[2018-02-03] MEDS: metroNIDAZOLE 500 MG TABLET PO SCH ×3 (06:17→21:52)
[2018-02-03 07:00] VITALS: BP 141/83
[2018-02-03] MEDS: KETOROLAC 15 MG/ML VIAL. IV PRN ×2 (08:31→16:30)
[2018-02-03] MEDS: POLYETHYLENE GLYCOL 3350 17 GM PACKET. PO SCH ×2 (08:32→21:52)
[2018-02-03] MEDS: PREGABALIN 50 MG CAPSULE PO SCH ×2 (08:33→21:53)
[2018-02-03] MEDS: LOSARTAN POTASSIUM 50 MG TABLET. PO SCH (08:33)
[2018-02-03] MEDS: LACTOBACILLUS RHAMNOSUS GG 1 CAPSULE. PO SCH ×2 (08:33→21:52)
[2018-02-03] MEDS: SERTRALINE 50 MG TABLET. PO SCH (08:33)
[2018-02-03] MEDS: hydroCHLOROthiazide 12.5 MG CAPSULE PO SCH (08:33)
[2018-02-03] MEDS: CIPROFLOXACIN HCL 250 MG TABLET. PO SCH ×2 (08:33→21:52)
[2018-02-03] MEDS: INSULIN LISPRO 300 UNITS/3 ML INSULN.PEN. SQ SCH ×6 (08:40→17:15)
[2018-02-03 11:00] VITALS: BP 130/80
--- NOTE | 2018-02-03 11:03 | PDOC ---
Subjective: Subjective: Tells me pain is a little better. No stools, taking Miralax now. Says [place] makes her nervous so she wants to take it with food. Objective: Vital Signs: Vital Signs Date Time Temp Pulse Resp B/P (MAP) Pulse Ox O2 Delivery O2 Flow Rate FiO2 02/03/18 08:33 68 141/83 02/03/18 08:15 Room Air 02/03/18 07:00 97.9 18 93 97.9 02/03/18 06:55 2.0 Labs: Laboratory Tests Test 02/02/18 11:23 02/02/18 16:55 02/02/18 20:45 02/03/18 03:45 Glucose (Fingerstick) 312 mg/dL 209 mg/dL 106 mg/dL Prothrombin Time 19.2 SEC Prothromb Time International Ratio 1.7 Test 02/03/18 07:56 Glucose (Fingerstick) 185 mg/dL PE: GEN: NAD, was sleeping LUNGS: clear HEART: RRR ABD: obese, BLQ discomfort NEURO/PSYCH: A & O 3 A/P: Coumadin coagulopathy - INR now 1.[address] - "segmental wall thickening of the descending colon and sigmoid colon... may be due to incomplete distention" -- D/w DR. Winston - [facility] tomorrow? Outpt colonoscopy. Try BID Miralax. GABRIELA BRYSON Feb 03, 2018 11:03 WINIFRED GONZALES MD Feb 03, 2018 11:37
--- NOTE | 2018-02-03 14:42 | PDOC ---
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 talked to gi, consider dc abx. 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 Onset 2 days ago, associated with blood in stool Pain is cramping, colicky diffuse bilateral upper quadrant radiates to the back also some pain with moving her left hip. has abd pain since fall last . no diarrhea ever. no bloody stool since 01/31, still abd pain 02/01, 11/05, vomited 01/31 night. 02/02 , abd pain slightly better, 08/05 no BM since 01/31. INR 3.8 after 2 FFP 01/31 today down to 1.7 STILL hyperglycemia,. lantus not given last night Vitals Vitals Vital Signs Date Time Temp Pulse Resp B/P (MAP) Pulse Ox O2 Delivery O2 Flow Rate FiO2 02/03/18 12:49 Room Air 02/03/18 11:00 97.7 64 18 130/80 (97) 93 97.7 02/03/18 06:55 2.0 Physical Exam General: Alert, Oriented X3, Cooperative, No acute distress Abdomen: Normal bowel sounds, Soft, Other (Tenderness in bilateral upper quadrants, epigastrium and LLQ) Extremities: No clubbing, No cyanosis, No edema, Normal pulses, No tenderness/ swelling Skin: No rashes, No breakdown, No significant lesion Labs LABS Laboratory Tests Test 02/02/18 16:55 02/02/18 20:45 02/03/18 03:45 02/03/18 07:56 Glucose (Fingerstick) 209 mg/dL (70-99) 106 mg/dL (70-99) 185 mg/dL (70-99) Prothrombin Time 19.2 SEC (11.7-14.0) Prothromb Time International Ratio 1.7 (0.8-1.1) Test 02/03/18 11:28 Glucose (Fingerstick) 254 mg/dL (70-99) Assessment and Plan Assessmemt and Plan Problems Medical Problems: (1) Coumadin toxicity Status: Acute Comment Review of Relevant I have reviewed the following items tasha (where applicable) has been applied. Labs Laboratory Tests Test 02/01/18 16:25 02/01/18 21:19 02/02/18 03:20 02/02/18 07:29 Glucose (Fingerstick) 197 mg/dL (70-99) 203 mg/dL (70-99) 253 mg/dL (70-99) White Blood Count 5.4 x10^3/uL (4.0-11.0) Red Blood Count 4.56 x10^6/uL (3.50-5.40) Hemoglobin 13.3 g/dL (12.0-15.5) Hematocrit 38.9 % (36.0-47.0) Mean Corpuscular Volume 86 fL (79-100) Mean Corpuscular Hemoglobin 29 pg (25-35) Mean Corpuscular Hemoglobin Concent 34 g/dL (31-37) Red Cell Distribution Width 13.9 % (11.5-14.5) Platelet Count 200 x10^3/uL (140-400) Neutrophils (%) (Auto) 68 % (31-73) Lymphocytes (%) (Auto) 22 % (24-48) Monocytes (%) (Auto) 7 % (0-9) Eosinophils (%) (Auto) 2 % (0-3) Basophils (%) (Auto) 1 % (0-3) Neutrophils # (Auto) 3.7 x10^3uL (1.8-7.7) Lymphocytes # (Auto) 1.2 x10^3/uL (1.0-4.8) Monocytes # (Auto) 0.4 x10^3/uL (0.0-1.1) Eosinophils # (Auto) 0.1 x10^3/uL (0.0-0.7) Basophils # (Auto) 0.0 x10^3/uL (0.0-0.2) Prothrombin Time 47.6 SEC (11.7-14.0) Prothromb Time International Ratio 5.3 (0.8-1.1) Sodium Level 140 mmol/L (136-145) Potassium Level 4.0 mmol/L (3.5-5.1) Chloride Level 103 mmol/L (98-107) Carbon Dioxide Level 29 mmol/L (21-32) Anion Gap 8 (6-14) Blood Urea Nitrogen 11 mg/dL (7-20) Creatinine 0.6 mg/dL (0.6-1.0) Estimated GFR (Cockcroft-Gault) 109.6 Glucose Level 237 mg/dL (70-99) Calcium Level 9.1 mg/dL (8.5-10.1) Test 02/02/18 11:23 02/02/18 16:55 02/02/18 20:45 02/03/18 03:45 Glucose (Fingerstick) 312 mg/dL (70-99) 209 mg/dL (70-99) 106 mg/dL (70-99) Prothrombin Time 19.2 SEC (11.7-14.0) Prothromb Time International Ratio 1.7 (0.8-1.1) Test 02/03/18 07:56 02/03/18 11:28 Glucose (Fingerstick) 185 mg/dL (70-99) 254 mg/dL (70-99) Laboratory Tests Test 02/02/18 16:55 02/02/18 20:45 02/03/18 03:45 02/03/18 07:56 Glucose (Fingerstick) 209 mg/dL (70-99) 106 mg/dL (70-99) 185 mg/dL (70-99) Prothrombin Time 19.2 SEC (11.7-14.0) Prothromb Time International Ratio 1.7 (0.8-1.1) Test 02/03/18 11:28 Glucose (Fingerstick) 254 mg/dL (70-99) Medications Current Medications Fentanyl Citrate (Fentanyl 2ml Vial) 50 mcg 1X ONCE IV Last administered on at 20:24; Start 01/29/18 at 20:15; Stop 01/29/18 at 20:16; Status DC Iohexol (Omnipaque 300 Mg/ml) 100 ml STK-MED ONCE .ROUTE ; Start 01/29/18 at 21: 08; Stop 01/29/18 at 21:09; Status DC Metronidazole 100 ml @ 100 mls/hr 1X ONCE IV Last administered on 01/29/18at 23:04; Start 01/29/18 at 22:30; Stop 01/29/18 at 23:29; Status DC Aztreonam 1 gm/ Dextrose 50 ml @ 100 mls/hr Q6HRS IV ; Start 01/30/18 at 06:00 ; Stop 01/30/18 at 06:00; Status DC Sodium Chloride 1,000 ml @ 1,000 mls/hr 1X ONCE IV Last administered on at 23:04; Start 01/29/18 at 22:30; Stop 01/29/18 at 23:29; Status DC Phytonadione (Mephyton Oral Soln) 2.5 mg 1X ONCE PO Last administered on at 23:05; Start 01/29/18 at 22:45; Stop 01/29/18 at 22:46; Status DC Morphine Sulfate (Morphine Sulfate) 4 mg PRN Q2HR PRN IV PAIN Last administered on 01/30/18at 20:41; Start 01/29/18 at 22:45; Stop 01/30/18 at 22:44 ; Status DC Sodium Chloride 1,000 ml @ 100 mls/hr Q10H IV Last administered on 01/30/18at 17:18; Start 01/29/18 at 22:45; Stop 01/30/18 at 22:44; Status DC Aztreonam 1 gm/ Dextrose 50 ml @ 100 mls/hr ONCE ONCE IV Last administered on 01/30/18at 00:11; Start 01/29/18 at 23:00; Stop 01/29/18 at 23:29; Status DC Ondansetron HCl (Zofran) 4 mg PRN Q6HRS PRN IV NAUSEA/VOMITING 1ST CHOICE Last administered on 02/02/18at 12:18; Start 01/30/18 at 01:00 Prochlorperazine Edisylate (Compazine) 10 mg PRN Q6HRS PRN IV NAUSEA/VOMITING 2ND CHOICE; Start 01/30/18 at 01:00 Oxycodone HCl (Roxicodone) 5 mg PRN Q3HRS PRN PO SEVERE PAIN, SEE COMMENTS Last administered on 01/31/18at 00:33; Start 01/30/18 at 01:00 Ketorolac Tromethamine (Toradol 15mg Vial) 15 mg PRN Q6HRS PRN IV MILD PAIN Last administered on 02/03/18 08:31; Start 01/30/18 at 01:00; Stop 02/04/18 at 00:59 Lactulose (Lactulose) 20 gm PRN Q12HR PRN PO CONSTIPATION 2ND CHOICE; Start at 01:00 Insulin Human Lispro (HumaLOG) 0-9 UNITS TIDWMEALS SQ Last administered on 02/03 12:11; Start 01/30/18 at 08:00 Dextrose (Dextrose 50%-Water Syringe) 12.5 gm PRN Q15MIN PRN IV SEE COMMENTS; Start 01/30/18 at 01:00 Clonazepam (KlonoPIN) 0.5 mg DAILY PO Last administered on 01/30/18at 09:11; Start 01/30/18 at 09:00; Stop 01/31/18 at 08:12; Status DC Insulin Glargine (Lantus) 12 units QHS SQ Last administered on 01/30/18at 20:48 ; Start 01/30/18 at 01:15; Stop 01/31/18 at 12:02; Status DC Pregabalin (Lyrica) 50 mg BID PO Last administered on 02/03/18 08:33; Start 01/30/18 at 09:00 Sertraline HCl (Zoloft) 50 mg DAILY PO Last administered on 02/03/18at 08:33; Start 01/30/18 at 09:00 Losartan Potassium (Cozaar) 100 mg DAILY PO Last administered on 02/03/18at 08: 33; Start 01/30/18 at 09:00 Non-Formulary Medication (Quinapril/ Hydrochlorothiazide (Quinapril-Hctz 10- 12.5 Mg Tab)) 1 each DAILY PO ; Start 01/30/18 at 09:00; Status UNV Atorvastatin Calcium (Lipitor) 40 mg HS PO Last administered on 02/02/18at 20:24 ; Start 01/30/18 at 21:00 Sumatriptan Succinate (Imitrex) 100 mg PRN Q2HR PRN PO MIGRAINE HEADACHE; Start 01/30/18 at 01:00 Metronidazole 100 ml @ 100 mls/hr Q8HRS IV Last administered on 02/02/18at 14: 07; Start 01/30/18 at 06:00; Stop 02/02/18 at 14:58; Status DC Ciprofloxacin/ Dextrose 100 ml @ 100 mls/hr Q12HR IV Last administered on 02/02at 08:12; Start 01/30/18 at 01:30; Stop 02/02/18 at 14:58; Status DC Lisinopril (Prinivil) 10 mg DAILY PO Last administered on 01/31/18at 08:15; Start 01/30/18 at 09:00; Stop 01/31/18 at 15:45; Status DC Hydrochlorothiazide (Microzide) 12.5 mg DAILY PO Last administered on at 08:33; Start 01/30/18 at 09:00 Iohexol (Omnipaque 300 Mg/ml) 100 ml STK-MED ONCE .ROUTE ; Start 01/30/18 at 03: 45; Stop 01/30/18 at 03:46; Status DC Insulin Glargine (Lantus) 12 units 1X ONCE SQ Last administered on 01/30/18at 09:17; Start 01/30/18 at 09:00; Stop 01/30/18 at 09:01; Status DC Insulin Human Lispro (HumaLOG) 12 units 1X ONCE SQ Last administered on at 09:17; Start 01/30/18 at 09:00; Stop 01/30/18 at 09:01; Status DC Insulin Human Lispro (HumaLOG) 8 units 1X ONCE SQ Last administered on at 23:23; Start 01/30/18 at 23:00; Stop 01/30/18 at 23:03; Status DC Morphine Sulfate (Morphine Sulfate) 4 mg PRN Q2HR PRN IV MOD - SEVERE PAIN 2ND CHOICE Last administered on 02/02/18at 12:12; Start 01/31/18 at 01:00; Stop 02/02 at 13:25; Status DC Clonazepam (KlonoPIN) 0.5 mg PRN DAILY PRN PO ANXIETY / AGITATION; Start at 08:15 Lactobacillus Rhamnosus (Culturelle) 1 cap BID PO Last administered on at 08:33; Start 01/31/18 at 21:00 Insulin Glargine (Lantus) 30 units QHS SQ Last administered on 01/31/18at 20:15 ; Start 01/31/18 at 21:00; Stop 02/01/18 at 10:27; Status DC Insulin Human Lispro (HumaLOG) 10 units TIDAC SQ Last administered on at 08:15; Start 01/31/18 at 12:00; Stop 02/01/18 at 10:27; Status DC Influenza Virus Vaccine (Afluria Trivalent [id number] Syringe) 0.5 ml ONCE ONCE VAX IM Last administered on 02/01/18at 08:17; Start 02/01/18 at 09:00; Stop 02/01/18 at 09:01; Status DC Dicyclomine HCl (Bentyl) 10 mg PRN QID PRN PO abd pain; Start 01/31/18 at 14:30 Ondansetron HCl (Zofran) 4 mg PRN Q6HRS PRN IV NAUSEA/VOMITING; Start 01/31/18 at 15:45; Status Cancel Morphine Sulfate (Morphine Sulfate) 2 mg PRN Q2HR PRN IV MOD TO SEVERE PAIN 1ST CHOICE Last administered on 02/03/18at 12:49; Start 01/31/18 at 15:45 Tramadol HCl (Ultram) 50 mg PRN Q6HRS PRN PO MILD TO MODERATE PAIN Last administered on 01/31/18at 17:31; Start 01/31/18 at 15:45 Docusate Sodium (Colace) 100 mg PRN DAILY PRN PO CONSTIPATION 1ST CHOICE; Start 01/31/18 at 15:45 Insulin Human Lispro (HumaLOG) 4 units 1X ONCE SQ Last administered on at 22:26; Start 01/31/18 at 22:00; Stop 01/31/18 at 22:01; Status DC Insulin Glargine (Lantus) 45 units QHS SQ Last administered on 02/01/18at 21:40 ; Start 02/01/18 at 21:00; Stop 02/02/18 at 10:27; Status DC Insulin Human Lispro (HumaLOG) 15 units TIDAC SQ Last administered on at 08:14; Start 02/01/18 at 11:30; Stop 02/02/18 at 10:27; Status DC Insulin Glargine (Lantus) 60 units QHS SQ ; Start 02/02/18 at 21:00; Stop at 11:23; Status DC Insulin Human Lispro (HumaLOG) 20 units TIDAC SQ Last administered on at 12:11; Start 02/02/18 at 11:30 Phytonadione 10 mg/Dextrose 51 ml @ 102 mls/hr 1X ONCE IV Last administered on 02/02/18at 12:13; Start 02/02/18 at 11:00; Stop 02/02/18 at 11:29; Status DC Insulin Glargine (Lantus) 30 units 1X ONCE SQ Last administered on 02/02/18at 14:12; Start 02/02/18 at 12:30; Stop 02/02/18 at 12:38; Status DC Polyethylene Glycol (miraLAX PACKET) 17 gm DAILY PO Last administered on at 08:32; Start 02/02/18 at 16:00; Stop 02/03/18 at 11:03; Status DC Ciprofloxacin (Cipro) 250 mg BID PO Last administered on 02/03/18at 08:33; Start 02/02/18 at 21:00 Metronidazole (Flagyl) 500 mg Q8HRS PO Last administered on 02/03/18at 06:17; Start 02/02/18 at 22:00 Polyethylene Glycol (miraLAX PACKET) 17 gm BID PO ; Start 02/03/18 at 21:00 Insulin Glargine (Lantus) 50 units QHS SQ ; Start 02/03/18 at 21:00 Warfarin Sodium (Coumadin) 5 mg DAILY16 PO ; Start 02/03/18 at 16:00 Enoxaparin Sodium (Lovenox 100mg Syringe) 100 mg Q12HR SQ Last administered on 02/03/18at 12:09; Start 02/03/18 at 12:00 Warfarin Sodium (Coumadin Per Physician) 1 each PRN DAILY PRN MC SEE COMMENTS; Start 02/03/18 at 11:30 Active Scripts Active Reported Atacand (Candesartan Cilexetil) 32 Mg Tablet 1 Tab PO DAILY Quinapril-Hctz 10-12.5 Mg Tab (Quinapril/Hydrochlorothiazide) 1 Each Tablet 1 Each PO DAILY Relpax (Eletriptan Hbr) 20 Mg Tablet 20 Mg PO Reglan (Metoclopramide Hcl) 10 Mg Tablet 10 Mg PO TIDWMEALHC Lyrica (Pregabalin) 50 Mg Capsule 50 Mg PO BID Clonazepam 0.5 Mg Tablet 1 Tab PO PRN DAILY PRN Zoloft (Sertraline Hcl) 50 Mg Tablet 1 Tab PO DAILY Crestor (Rosuvastatin Calcium) 10 Mg Tablet 1 Tab PO DAILY Lantus Solostar (Insulin Glargine,Hum.rec.anlog) 100 Unit/1 Ml Insuln.pen 66 Unit SQ QHS Vitals/I & O Vital Sign - Last 24 Hours 02/02/18 02/02/18 02/02/18 02/02/18 15:00 16:57 19:00 20:00 Temp 97.6 97.9 97.6 97.9 Pulse 72 70 Resp 20 16 20 B/P (MAP) 133/72 (92) 126/76 (93) Pulse Ox 90 90 O2 Delivery Room Air Room Air Room Air Nasal Cannula O2 Flow Rate 2.0 02/02/18 02/02/18 02/03/18 02/03/18 20:21 23:00 00:47 03:00 Temp 97.9 98.1 97.9 98.1 Pulse 58 65 Resp 18 16 18 16 B/P (MAP) 158/94 (115) 109/95 (100) Pulse Ox 94 94 O2 Delivery Room Air Room Air Nasal Cannula Room Air O2 Flow Rate 2.0 02/03/18 02/03/18 02/03/18 02/03/18 06:18 06:55 07:00 08:15 Temp 97.9 97.9 Pulse 68 Resp 18 18 18 B/P (MAP) 141/83 (102) Pulse Ox 93 O2 Delivery Nasal Cannula Nasal Cannula Room Air Room Air O2 Flow Rate 2.0 2.0 02/03/18 02/03/18 02/03/18 08:33 11:00 12:49 Temp 97.7 97.7 Pulse 68 64 Resp 18 B/P (MAP) 141/83 130/80 (97) Pulse Ox 93 O2 Delivery Room Air Room Air Intake and Output 02/02/18 02/02/18 02/03/18 15:00 23:00 07:00 Intake Total 902 ml 300 ml Balance 902 ml 300 ml DEXTER REYES MD Feb 03, 2018 14:42
[2018-02-03 15:00] VITALS: BP 135/82
[2018-02-03] MEDS ORDERED: WARFARIN 5 MG TABLET. PO SCH (16:00)
[2018-02-03 19:00] VITALS: BP 126/69
[2018-02-03] MEDS ORDERED: INSULIN GLARGINE 300 UNITS/3 ML INSULN.PEN. SQ SCH (21:00)
[2018-02-03] MEDS: ATORVASTATIN CALCIUM 40 MG TABLET. PO SCH (21:52)
[2018-02-03 23:00] VITALS: BP 144/91
[2018-02-04 03:00] VITALS: BP 122/65
[2018-02-04] MEDS: MORPHINE SULFATE 2 MG/ML VIAL. IV PRN (03:25)
[2018-02-04 04:51] LABS: BASO % 0 % (0-3); EOS # 0.1 x10^3/uL (0.0-0.7); EOS % 2 % (0-3); HEMATOCRIT 40.5 % (36.0-47.0); LYMPH # 1.7 x10^3/uL (1.0-4.8); LYMPH % 23 % (24-48); MEAN CORPUSCULAR HEMOGLOBIN 30 pg (25-35); MEAN CORPUSCULAR HGB CONC 35 g/dL (31-37); MEAN CORPUSCULAR VOLUME 86 fL (79-100); MONO # 0.6 x10^3/uL (0.0-1.1); MONO % 9 % (0-9); NEUT # 4.8 x10^3uL (1.8-7.7); NEUT % 66 % (31-73); PLATELET COUNT 209 x10^3/uL (140-400); RED BLOOD COUNT 4.72 x10^6/uL (3.50-5.40); RED CELL DISTRIBUTION WIDTH 13.8 % (11.5-14.5); WHITE BLOOD COUNT 7.3 x10^3/uL (4.0-11.0)
[2018-02-04 05:05] LABS: PROTHROMBIN TIME PATIENT 17.5 SEC (11.7-14.0)
[2018-02-04 05:10] LABS: CALCIUM 9.4 mg/dL (8.5-10.1); CREATININE 0.9 mg/dL (0.6-1.0); GFR 68.7; POTASSIUM 3.6 mmol/L (3.5-5.1)
[2018-02-04 07:00] VITALS: BP 118/92
[2018-02-04] MEDS: INSULIN LISPRO 300 UNITS/3 ML INSULN.PEN. SQ SCH ×4 (07:30→12:00)
[2018-02-04] MEDS: hydroCHLOROthiazide 12.5 MG CAPSULE PO SCH (08:27)
[2018-02-04] MEDS: PREGABALIN 50 MG CAPSULE PO SCH (08:27)
[2018-02-04] MEDS: metroNIDAZOLE 500 MG TABLET PO SCH ×2 (08:28→14:00)
[2018-02-04] MEDS: LACTOBACILLUS RHAMNOSUS GG 1 CAPSULE. PO SCH (08:28)
[2018-02-04] MEDS: SERTRALINE 50 MG TABLET. PO SCH (08:28)
[2018-02-04] MEDS: CIPROFLOXACIN HCL 250 MG TABLET. PO SCH (08:28)
[2018-02-04] MEDS: POLYETHYLENE GLYCOL 3350 17 GM PACKET. PO SCH (08:39)
[2018-02-04] MEDS: LOSARTAN POTASSIUM 50 MG TABLET. PO SCH (08:40)
--- NOTE | 2018-02-04 10:47 | PDOC ---
Subjective: Subjective: Hopeful to go home, pain the same, tolerating PO, no stools. Objective: Vital Signs: Vital Signs Date Time Temp Pulse Resp B/P (MAP) Pulse Ox O2 Delivery O2 Flow Rate FiO2 02/04/18 08:40 69 118/92 02/04/18 07:00 98.1 18 92 Room Air 98.1 Labs: Laboratory Tests Test 02/03/18 11:28 02/03/18 16:42 02/03/18 21:08 02/04/18 03:50 Glucose (Fingerstick) 254 mg/dL 252 mg/dL 161 mg/dL White Blood Count 7.3 x10^3/uL Red Blood Count 4.72 x10^6/uL Hemoglobin 14.0 g/dL Hematocrit 40.5 % Mean Corpuscular Volume 86 fL Mean Corpuscular Hemoglobin 30 pg Mean Corpuscular Hemoglobin Concent 35 g/dL Red Cell Distribution Width 13.8 % Platelet Count 209 x10^3/uL Neutrophils (%) (Auto) 66 % Lymphocytes (%) (Auto) 23 % Monocytes (%) (Auto) 9 % Eosinophils (%) (Auto) 2 % Basophils (%) (Auto) 0 % Neutrophils # (Auto) 4.8 x10^3uL Lymphocytes # (Auto) 1.7 x10^3/uL Monocytes # (Auto) 0.6 x10^3/uL Eosinophils # (Auto) 0.1 x10^3/uL Basophils # (Auto) 0.0 x10^3/uL Prothrombin Time 17.5 SEC Prothromb Time International Ratio 1.5 Sodium Level 143 mmol/L Potassium Level 3.6 mmol/L Chloride Level 105 mmol/L Carbon Dioxide Level 29 mmol/L Anion Gap 9 Blood Urea Nitrogen 13 mg/dL Creatinine 0.9 mg/dL Estimated GFR (Cockcroft-Gault) 68.7 Glucose Level 94 mg/dL Calcium Level 9.4 mg/dL Test 02/04/18 08:31 Glucose (Fingerstick) 83 mg/dL PE: GEN: NAD, was asleep LUNGS: CTAB HEART: RRR ABD: stable BLQ discomfort NEURO/PSYCH: A & O 3 A/P: Coumadin coagulopathy - resolved BLQ pain, abnormal CT w/ possible "colitis" Constipation -- DC per primary - okay w/ GI. Probably doesn't need to continue atbx. Offered Relistor today - she declined. Encouraged to continue Miralax BID (adjust dose as needed) especially if to continue pain meds. Try Dulcolax. Follow-up for outpt colonoscopy - our office will contact. GABRIELA BRYSON Feb 04, 2018 10:47
[2018-02-04] MEDS ORDERED: ENOX100D3 SQ (10:50)
[2018-02-04 11:00] VITALS: BP 121/70
[2018-02-04] MEDS ORDERED: BISACODYL 5 MG TABLET.DR. PO ONE (11:00)
[2018-02-04] MEDS ORDERED: POLY17PO3 PO (13:07)
--- NOTE | 2018-02-04 13:13 | PDOC3 ---
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 Mark is a 42 old F, on warfarin for h/o DVT, PE with five leiden mutation. came for abd pain , post fall last . [facility] since [facility] 10. she then has rectal bleeding for 1 d, no diarrhea, some nausea, cont severe abd pain. CT here showed possible colitis with some thickening colon fisher. got flagyl, and cipro. pt has no BM here , rectal bleeding stopped after admission, INR better after FFP, vitK. now low as 1.5. lovenox bid and warfarin started. pt still has 5/10 abd pain, diffuse, decreased bs, eats ok. nausea last night. wants to go home. i talked to GI, ok to dc, wo abx for home given less likely colitis. pt understands to do lovenox sq bid, warfarin daily till INR 2-3. dc time 35min. General: Alert, Oriented X3, Cooperative, No acute distress Abdomen: decreased bowel sounds, Soft, mild tenderness lower abd. Extremities: No clubbing, No cyanosis, No edema, Normal pulses, No tenderness/ swelling Skin: No rashes, No breakdown, No significant lesion Disposition home CONDITION AT DISCHARGE: Improved Scheduled Candesartan Cilexetil (Atacand), 1 TAB PO DAILY, (Reported) Enoxaparin Sodium (Enoxaparin Sodium), 100 MG SQ Q12HR Insulin Glargine,Hum.rec.anlog (Lantus Solostar), 66 UNIT SQ QHS, (Reported) Metoclopramide Hcl (Reglan), 10 MG PO TIDWMEALHC, (Reported) Polyethylene Glycol 3350 (Polyethylene Glycol 3350), 17 GM PO BID Pregabalin (Lyrica), 50 MG PO BID, (Reported) Quinapril/Hydrochlorothiazide (Quinapril-Hctz 10-12.5 Mg Tab), 1 EACH PO DAILY, (Reported) Rosuvastatin Calcium (Crestor), 1 TAB PO DAILY, (Reported) Sertraline Hcl (Zoloft), 1 TAB PO DAILY, (Reported) Scheduled PRN Clonazepam (Clonazepam), 1 TAB PO PRN DAILY PRN for ANXIETY / AGITATION, ( Reported) Miscellaneous Medications Eletriptan Hbr (Relpax), 20 MG PO, (Reported) DEXTER REYES MD Feb 04, 2018 13:13
== END 2018-02-04 14:55 | disposition home or self-care (01) | DRG 378 ==
LOC: ER 19:37 → 4 NORTH 22:58
PROVIDERS: ADMIT Internal Medicine; ATTEND Internal Medicine
PROC: 30233L1 Transfusion of Nonautologous Fresh Plasma into Peripheral Vein, Percutaneous Approach (ICD-10-PCS; principal; 2018-01-29)
PROC: 30233K1 Transfusion of Nonautologous Frozen Plasma into Peripheral Vein, Percutaneous Approach (ICD-10-PCS; 2018-01-29)
DX: K92.2 Gastrointestinal hemorrhage, unspecified (principal); A09 Infectious gastroenteritis and colitis, unspecified; C18.9 Malignant neoplasm of colon, unspecified; D68.2 Hereditary deficiency of other clotting factors; D68.51 Activated protein C resistance; K50.90 Crohn's disease, unspecified, without complications; K55.9 Vascular disorder of intestine, unspecified; E11.65 Type 2 diabetes mellitus with hyperglycemia; G43.909 Migraine, unspecified, not intractable, without status migrainosus; W10.8XXA Fall (on) (from) other stairs and steps, initial encounter; I10 Essential (primary) hypertension; K59.00 Constipation, unspecified; K76.0 Fatty (change of) liver, not elsewhere classified; T45.515A Adverse effect of anticoagulants, initial encounter; Z79.01 Long term (current) use of anticoagulants; Z83.3 Family history of diabetes mellitus; Z86.711 Personal history of pulmonary embolism; Z86.718 Personal history of other venous thrombosis and embolism; Z98.51 Tubal ligation status; Z90.49 Acquired absence of other specified parts of digestive tract; Y93.89 Activity, other specified; Y92.89 Other specified places as the place of occurrence of the external cause; Y99.8 Other external cause status; Z88.8 Allergy status to other drugs, medicaments and biological substances; Z88.0 Allergy status to penicillin
CPT/HCPCS: 36415; 70450; 74177; 80048; 80053; 81001; 81025; 82274; 82962; 83690; 84443; 85025; 85610; 86850; 86900; 86901; 86927; 90471; 90756; 96365; 96375; J0744; J0780; J1650; J1815; J1885; J2270; J2405; J3010; J3430; J3490; J7030; P9017; 99285-25; Q2035

== ENCOUNTER 2018-02-15 20:45 | Inpatient (IN) | payer BC ==
[~2018-02-15] VITALS: Ht 170.2 cm; Wt 112.0 kg
[~2018-02-15 20:45] MED LIST changes: +CAND32TA19 PO; -CAND32TA2 PO; +ENOX100D3 SQ; +POLY17PO28 PO
[2018-02-15] MEDS ORDERED: IV NORMAL SALINE 500ML BAG 500 ML IV SCH (21:30)
[2018-02-15 21:39] LABS: BILIRUBIN,URINE NEGATIVE (NEG); CLARITY,URINE CLEAR; COLOR,URINE YELLOW; NITRITE,URINE NEGATIVE (NEG); PH,URINE 5.5; PROTEIN,URINE NEGATIVE (NEG-TRACE); UROBILINOGEN,URINE 0.2 mg/dL (0.2 mg/dL)
[2018-02-15 21:47] LABS: FECAL OB PT NEGATIVE (NEG)
[2018-02-15 21:49] LABS: BASO # 0.1 x10^3/uL (0.0-0.2); BASO % 1 % (0-3); EOS # 0.1 x10^3/uL (0.0-0.7); EOS % 2 % (0-3); HEMATOCRIT 41.2 % (36.0-47.0); HEMOGLOBIN 14.3 g/dL (12.0-15.5); LYMPH # 2.1 x10^3/uL (1.0-4.8); LYMPH % 29 % (24-48); MEAN CORPUSCULAR HEMOGLOBIN 29 pg (25-35); MEAN CORPUSCULAR HGB CONC 35 g/dL (31-37); MEAN CORPUSCULAR VOLUME 83 fL (79-100); MONO # 0.5 x10^3/uL (0.0-1.1); MONO % 7 % (0-9); NEUT # 4.5 x10^3uL (1.8-7.7); NEUT % 61 % (31-73); PLATELET COUNT 267 x10^3/uL (140-400); RED BLOOD COUNT 4.94 x10^6/uL (3.50-5.40); RED CELL DISTRIBUTION WIDTH 13.6 % (11.5-14.5); WHITE BLOOD COUNT 7.3 x10^3/uL (4.0-11.0)
[2018-02-15 21:52] LABS: BACTERIA,URINE MODERATE /HPF (0-FEW); RBC,URINE OCC /HPF (0-2); SQUAMOUS EPITHELIAL CELL,UR FEW /LPF
[2018-02-15 22:06] LABS: CALCIUM 9.6 mg/dL (8.5-10.1); CREATININE 0.8 mg/dL (0.6-1.0); GFR 78.7; POTASSIUM 3.8 mmol/L (3.5-5.1)
[2018-02-15 22:09] LABS: ALBUMIN 3.5 g/dL (3.4-5.0); ALBUMIN/GLOBULIN RATIO 0.7 (1.0-1.7); TOTAL BILIRUBIN 0.4 mg/dL (0.2-1.0); TOTAL PROTEIN 8.5 g/dL (6.4-8.2)
[2018-02-15] MEDS ORDERED: PANTOPRAZOLE IV PUSH 40 MG VIAL. IVP ONE (22:30)
[2018-02-15] MEDS ORDERED: HYOSCYAMINE 0.125 MG TAB.RAPDIS PO ONE (22:45)
--- NOTE | 2018-02-15 22:48 | RAD ---
PQRS Compliance statement: One or more of the following individualized dose reduction techniques were utilized for this examination: 1. Automated exposure control. 2. Adjustment of the mA and/or kV according to patient size. 3. Use of iterative reconstruction technique. Indication:blood in stool and vomit, low abd pain, non contrast per order, prior sent from earlier this month TECHNIQUE: CT abdomen and pelvis without IV contrast with multiplanar reformats. COMPARISON: 01/29/2018 FINDINGS: Limited evaluation of solid abdominal and pelvic organs due to lack of IV contrast. Heart is normal in size. No pericardial or pleural effusion. Clear lung bases. Noncontrast appearance of the liver, spleen, pancreas, adrenals within normal limits. Status post cholecystectomy. No nephrolithiasis or hydronephrosis. No enlarged retroperitoneal or pelvic adenopathy. No free pelvic fluid or ascites. Small fat-containing left inguinal hernia. No bowel obstruction. Anteverted uterus. Urinary bladder demonstrates no radiopaque stones. Normal appendix. No pneumoperitoneum. No suspicious bony lesion. IMPRESSION: Limited evaluation of solid abdominal and pelvic organs due to lack of IV contrast. No acute findings. Electronically signed by: Jamie Dalton DO (02/15/2018 10:45 PM) [facility]
--- NOTE | 2018-02-15 23:07 | PHYS DOC ---
Past Medical History Past Medical History: Diabetes-Type II, DVT, Hypertension Additional Past Medical Histor: PE/DVT, HEART MURMUR, FACTOR FIVE CLOTTING DISORDER Past Surgical History: Cholecystectomy, Tonsillectomy, Tubal ligation Additional Past Surgical Histo: OVARIAN CYST,BILAT EARS,LEAP, LYMP NODES, T&A Alcohol Use: None Drug Use: None Adult General Chief Complaint Chief Complaint: RECTAL BLEED HPI HPI Patient is a 42 year old [female] who presents with GI bleeding. Patient reports bright red blood both in the stool in the emesis. This has been going on for the past day or so. Patient also notes some diffuse abdominal pain that is both sharp and crampy. Patient had similar discomfort when she was recently admitted for another GI bleed and an elevated INR. Patient is on Coumadin due to the fact or 5 Leiden as well as previous blood clots. Patient denies any chest pain or difficulty breathing. No fevers. Denies any vaginal bleeding or dysuria. During her recent admission with the supratherapeutic INR, patient did not have any kind of endoscopy performed. [] Review of Systems Review of Systems Constitutional: Denies fever or chills [] Eyes: Denies change in visual acuity, redness, or eye pain [] HENT: Denies nasal congestion or sore throat [] Respiratory: Denies cough or shortness of breath [] Cardiovascular: No chest pain or palpitations[] GI: See history of present illness[] : Denies dysuria or hematuria [] Musculoskeletal: Denies back pain or joint pain [] Integument: Denies rash or skin lesions [] Neurologic: Denies headache, focal weakness or sensory changes [] Endocrine: Denies polyuria or polydipsia [] All other systems were reviewed and found to be within normal limits, except as documented in this note. Current Medications Current Medications Current Medications Medications (Trade) Dose Ordered Sig/Ricardo Start Time Stop Time Status Last Admin Dose Admin Hyoscyamine (Anaspaz) 0.125 mg 1X ONCE 02/15/18 22:45 02/15/18 22:46 DC 02/15/18 22:36 0.125 MG Pantoprazole Sodium (PROTONIX VIAL for IV PUSH) 80 mg 1X ONCE 02/15/18 22:30 02/15/18 22:31 DC 02/15/18 22:36 80 MG Sodium Chloride 500 ml @ 500 mls/hr Q1H 02/15/18 21:30 02/15/18 22:00 DC 02/15/18 21:30 500 MLS/HR Allergies Allergies Allergies Coded Allergies Type Severity Reaction Last Updated Verified acetaminophen Allergy Severe THROAT SWELLS 05/29/15 Yes propoxyphene Allergy Severe THROAT SWELLS 05/29/15 Yes Penicillins Allergy Intermediate HIVES 05/29/15 Yes orange Allergy Intermediate 02/03/18 Yes vancomycin Allergy Intermediate 02/02/18 Yes Physical Exam Physical Exam Constitutional: Well developed, well nourished, no acute distress, non-toxic appearance. [] HENT: Normocephalic, atraumatic, bilateral external ears normal, oropharynx moist, no oral exudates, nose normal. [] Eyes: PERRLA, EOMI, conjunctiva normal, no discharge. [] Neck: Normal range of motion, no tenderness, supple, no stridor. [] Cardiovascular:Heart rate regular rhythm, no murmur [] Lungs & Thorax: Bilateral breath sounds clear to auscultation [] Abdomen: Bowel sounds normal, soft, diffuse tenderness, no rebound, no guarding , no rigidity, no masses, no pulsatile masses. [] Skin: Warm, dry, no erythema, no rash. [] Back: No tenderness, no CVA tenderness. [] Extremities: No tenderness, no cyanosis, no clubbing, ROM intact, no edema. [] Neurologic: Alert and oriented X 3, normal motor function, normal sensory function, no focal deficits noted. [] Psychologic: Affect normal, judgement normal, mood normal. [] Current Patient Data Vital Signs Vital Signs Date Time Temp Pulse Resp B/P (MAP) Pulse Ox O2 Delivery O2 Flow Rate FiO2 02/15/18 20:53 97.7 16 155/105 (122) 97 97.7 Lab Values Laboratory Tests Test 02/15/18 21:10 02/15/18 21:29 02/15/18 21:32 02/15/18 21:40 Urine Collection Type Unknown Urine Color Yellow Urine Clarity Clear Urine pH 5.5 Urine Specific [place] >=1.030 Urine Protein Negative mg/dL (NEG-TRACE) Urine Glucose (UA) >=1000 mg/dL (NEG) Urine Ketones (Stick) Negative mg/dL (NEG) Urine Blood Negative (NEG) Urine Nitrite Negative (NEG) Urine Bilirubin Negative (NEG) Urine Urobilinogen Dipstick 0.2 mg/dL (0.2 mg/dL) Urine Leukocyte Esterase Negative (NEG) Urine RBC Occ /HPF (0-2) Urine WBC 1-4 /HPF (0-4) Urine Squamous Epithelial Cells Few /LPF Urine Bacteria Moderate /HPF (0-FEW) Stool Occult Blood Negative (NEG) POC Urine HCG, Qualitative Hcg negative (Negative) White Blood Count 7.3 x10^3/uL (4.0-11.0) Red Blood Count 4.94 x10^6/uL (3.50-5.40) Hemoglobin 14.3 g/dL (12.0-15.5) Hematocrit 41.2 % (36.0-47.0) Mean Corpuscular Volume 83 fL (79-100) Mean Corpuscular Hemoglobin 29 pg (25-35) Mean Corpuscular Hemoglobin Concent 35 g/dL (31-37) Red Cell Distribution Width 13.6 % (11.5-14.5) Platelet Count 267 x10^3/uL (140-400) Neutrophils (%) (Auto) 61 % (31-73) Lymphocytes (%) (Auto) 29 % (24-48) Monocytes (%) (Auto) 7 % (0-9) Eosinophils (%) (Auto) 2 % (0-3) Basophils (%) (Auto) 1 % (0-3) Neutrophils # (Auto) 4.5 x10^3uL (1.8-7.7) Lymphocytes # (Auto) 2.1 x10^3/uL (1.0-4.8) Monocytes # (Auto) 0.5 x10^3/uL (0.0-1.1) Eosinophils # (Auto) 0.1 x10^3/uL (0.0-0.7) Basophils # (Auto) 0.1 x10^3/uL (0.0-0.2) Prothrombin Time 13.0 SEC (11.7-14.0) Prothrombin Time INR 1.0 (0.8-1.1) PTT 29 SEC (24-38) Sodium Level 133 mmol/L (136-145) L Potassium Level 3.8 mmol/L (3.5-5.1) Chloride Level 96 mmol/L (98-107) L Carbon Dioxide Level 25 mmol/L (21-32) Anion Gap 12 (6-14) Blood Urea Nitrogen 12 mg/dL (7-20) Creatinine 0.8 mg/dL (0.6-1.0) Estimated GFR (Cockcroft-Gault) 78.7 BUN/Creatinine Ratio 15 (6-20) Glucose Level 500 mg/dL (70-99) *H Calcium Level 9.6 mg/dL (8.5-10.1) Total Bilirubin 0.4 mg/dL (0.2-1.0) Aspartate Amino Transferase (AST) 18 U/L (15-37) Alanine Aminotransferase (ALT) 40 U/L (14-59) Alkaline Phosphatase 77 U/L (46-116) Total Protein 8.5 g/dL (6.4-8.2) H Albumin 3.5 g/dL (3.4-5.0) Albumin/Globulin Ratio 0.7 (1.0-1.7) L Laboratory Tests 02/15/18 21:40 Laboratory Tests 02/15/18 21:40 EKG EKG [] Radiology/Procedures Radiology/Procedures CT scan of the abdomen and pelvis did not show any acute features.[] Course & Med Decision Making Course & Med Decision Making Pertinent Labs and Imaging studies reviewed. (See chart for details) ED course: Patient arrived, was placed in bed, in tolerate exam well. Rectal exam was performed with plastic sheets supervisor and no external lesions and no gross bleeding was noted. Patient's elevated glucose was noted, was started on IV fluids. After the return of the lab and imaging findings, these were discussed with the patient, and plan was arrived at with patient. All questions were answered. Medical decision making: There does not appear to be significant anemia, no emergent surgical pathology, no evidence of diabetic ketoacidosis, no supratherapeutic INR. We will admit the patient for serial labs and potentially an EGD in the morning.[] Dragon Disclaimer Dragon Disclaimer This electronic medical record was generated, in whole or in part, using a voice recognition dictation system. Departure Departure Impression: Primary Impression: GI bleed Additional Impression: Hyperglycemia Disposition: 09 ADMITTED INPATIENT Admitting Physician: Xie. Rothman Condition: STABLE Referrals: UNKNOWN PCP NAME (PCP) Problem Qualifiers ARTHUR MICHAEL DO Feb 15, 2018 23:07
[2018-02-15] MEDS ORDERED: ONDANSETRON PF 4 MG/2 ML VIAL. IV PRN (23:15)
[2018-02-15 23:40] VITALS: BP 144/90
[2018-02-16] MEDS ORDERED: clonazePAM 0.5 MG TABLET PO PRN
[2018-02-16] MEDS ORDERED: INSULIN GLARGINE 300 UNITS/3 ML INSULN.PEN. SQ ONE (00:15)
[2018-02-16] MEDS: IV NORMAL SALINE 1000ML BAG 1,000 ML IV SCH ×3 (00:25→13:18)
[2018-02-16] MEDS: MORPHINE SULFATE 2 MG/ML VIAL. IV PRN ×5 (00:37→19:27)
[2018-02-16 02:48] VITALS: BP 147/92
[2018-02-16 04:57] LABS: BASO % 1 % (0-3); EOS # 0.1 x10^3/uL (0.0-0.7); EOS % 2 % (0-3); HEMATOCRIT 36.8 % (36.0-47.0); LYMPH # 2.1 x10^3/uL (1.0-4.8); LYMPH % 33 % (24-48); MEAN CORPUSCULAR HEMOGLOBIN 29 pg (25-35); MEAN CORPUSCULAR HGB CONC 35 g/dL (31-37); MEAN CORPUSCULAR VOLUME 83 fL (79-100); MONO # 0.5 x10^3/uL (0.0-1.1); MONO % 8 % (0-9); NEUT # 3.6 x10^3uL (1.8-7.7); NEUT % 57 % (31-73); PLATELET COUNT 239 x10^3/uL (140-400); RED BLOOD COUNT 4.43 x10^6/uL (3.50-5.40); RED CELL DISTRIBUTION WIDTH 13.2 % (11.5-14.5); WHITE BLOOD COUNT 6.4 x10^3/uL (4.0-11.0)
[2018-02-16 05:25] LABS: ALBUMIN 3.1 g/dL (3.4-5.0); ALBUMIN/GLOBULIN RATIO 0.7 (1.0-1.7); CALCIUM 8.9 mg/dL (8.5-10.1); CREATININE 0.7 mg/dL (0.6-1.0); GFR 91.8; POTASSIUM 3.6 mmol/L (3.5-5.1); TOTAL BILIRUBIN 0.7 mg/dL (0.2-1.0); TOTAL PROTEIN 7.3 g/dL (6.4-8.2)
[2018-02-16 07:00] VITALS: BP 97/54
[2018-02-16] MEDS: METOCLOPRAMIDE 10 MG TABLET. PO SCH ×2 (08:00→12:00)
[2018-02-16] MEDS ORDERED: POLYETHYLENE GLYCOL 3350 17 GM PACKET. PO SCH (09:00)
[2018-02-16] MEDS ORDERED: LOSARTAN POTASSIUM 50 MG TABLET. PO SCH (09:00)
[2018-02-16] MEDS: SERTRALINE 50 MG TABLET. PO SCH (09:00)
[2018-02-16] MEDS: LISINOPRIL 10 MG TABLET PO SCH (09:00)
[2018-02-16] MEDS: PREGABALIN 50 MG CAPSULE PO SCH ×2 (09:00→20:31)
[2018-02-16] MEDS ORDERED: [UNRECOGNIZED DRUG - OTHER] PO SCH (09:00)
[2018-02-16] MEDS ORDERED: QUINAPRIL PO SCH (09:00)
[2018-02-16] MEDS ORDERED: hydroCHLOROthiazide 12.5 MG CAPSULE PO SCH (09:00)
[2018-02-16] MEDS ORDERED: HYDROCHLOROTHIAZIDE PO SCH (09:00)
[2018-02-16 11:00] VITALS: BP 128/85
[2018-02-16] MEDS ORDERED: MORPHINE SULFATE 2 MG/ML VIAL. IV PRN (11:15)
[2018-02-16] MEDS ORDERED: ONDANSETRON PF 4 MG/2 ML VIAL. IV PRN ×2 (11:15→12:45)
[2018-02-16] MEDS ORDERED: DOCUSATE SODIUM 100 MG CAPSULE. PO PRN ×2 (11:15→12:45)
[2018-02-16] MEDS ORDERED: traMADol 50 MG TABLET PO PRN (11:15)
[2018-02-16] MEDS ORDERED: DEXTROSE 50% 25 GM / 50ML DISP.SYRIN. IV PRN (11:15)
[2018-02-16] MEDS ORDERED: CONTRAST GIVEN. MC PRN (11:30)
[2018-02-16] MEDS ORDERED: IOHEXOL 240 MG/ML 50ML VIAL. PO ONE (11:30)
[2018-02-16] MEDS ORDERED: IOHEXOL 300 MG/ML 100ML VIAL. IV ONE (11:30)
--- NOTE | 2018-02-16 12:17 | PDOC2 ---
GI CONSULT Reason For Consult: Abd pain HPI: HPI: 42 y/o female who was recently admitted w/ Coumadin coagulopathy and lower abd pain w/ h/o fall down the stairs. CT on 01/29/18 showed segmental wall thickening of the descending colon and sigmoid colon possibly due to incomplete distention or colitis. Had no stools or bleeding during admission, was treated w/ antibiotics, and discharged on 02/04 w/ recommendation to follow-up with our office for outpatient colonoscopy. She reports that at home the pain (located "across the lower section") never completely went away but was better. Was eating and stooling without issue. Then on Wednesday pain was suddenly a lot worse ("like a million little Austin Kreugers in there") and made her "double over" and cry. No precipitating events. Pain might get a little better when she's sitting and leaning forward. She had some loose stools (typical for her since cholecystectomy) w/ some red blood "wrapped around." Pain was worse the next day - she had two similar stools that day and vomited after eating. [place] "terrible" yesterday, so decided to come back to the hospital. Last stool and emesis occurred on Wednesday - stools still appeared to be wrapped with red blood and emesis had a pink tinge. Tells me she doesn't feel any better now but also says she's hungry. Denies GERD, dysphagia, chronic n/v (though mentions she sometimes feels sick when her glucose gets really high or really low), diarrhea, constipation, weight loss, or melena. No previous EGD or colonoscopy. S/p cholecystectomy for gallstones. No liver or pancreas history. H/o DM on insulin, says glucose normally runs between 200-280 at home ("that's good for me and that's when I feel the best"). H/o Factor V Leiden on chronic Coumadin. No NSAIDs. Summary list includes Reglan 10mg and is also ordered TID here - I confirmed that she does NOT take this at home. She also had a CT A/P in 2015 for "severe lower abdominal pain" that was unrevealing. This time, labs include normal WBC, normal Hgb, normal INR, normal BUN, normal LFTs, and hemoccult was negative. Glucose was 548. CT A/P w/o contrast was unrevealing. D/w Dr. Winston - plans to hold Coumadin today but hopefully resume tomorrow, also for CT angio and clear liquids. PMH: PMH: HTN, IDDM, HLD, Factor V Leiden w/ previous PE and DVT on chronic Coumadin, cholecystectomy, tubal ligation, tonsillectomy, ear surgery, bilateral ovarian cyst removal, thyroid biopsy FH: Family History: No pertinent hx (denies GI cancers) Social History: Smoke: No ALCOHOL: none Drugs: None ROS: GEN: Denies fevers, chills, sweats HEENT: Denies blurred vision, sore throat CV: Denies chest pain RESP: Denies shortness of air, cough GI: Per HPI : Denies hematuria, dysuria ENDO: Denies weight changes NEURO: Denies confusion, dizziness MSK: Denies weakness, joint pain/swelling SKIN: Denies jaundice, pruritus Vitals: Vitals: Vital Signs Date Time Temp Pulse Resp B/P (MAP) Pulse Ox O2 Delivery O2 Flow Rate FiO2 02/16/18 11:00 98.3 77 18 128/85 (99) 95 Room Air 98.3 Labs: Labs: Laboratory Tests Test 02/15/18 21:10 02/15/18 21:29 02/15/18 21:32 02/15/18 21:40 Urine Collection Type Unknown Urine Color Yellow Urine Clarity Clear Urine pH 5.5 Urine Specific [place] >=1.030 Urine Protein Negative mg/dL (NEG-TRACE) Urine Glucose (UA) >=1000 mg/dL (NEG) Urine Ketones (Stick) Negative mg/dL (NEG) Urine Blood Negative (NEG) Urine Nitrite Negative (NEG) Urine Bilirubin Negative (NEG) Urine Urobilinogen Dipstick 0.2 mg/dL (0.2 mg/dL) Urine Leukocyte Esterase Negative (NEG) Urine RBC Occ /HPF (0-2) Urine WBC 1-4 /HPF (0-4) Urine Squamous Epithelial Cells Few /LPF Urine Bacteria Moderate /HPF (0-FEW) Stool Occult Blood Negative (NEG) Bedside Urine HCG, Qualitative Hcg negative (Negative) White Blood Count 7.3 x10^3/uL (4.0-11.0) Red Blood Count 4.94 x10^6/uL (3.50-5.40) Hemoglobin 14.3 g/dL (12.0-15.5) Hematocrit 41.2 % (36.0-47.0) Mean Corpuscular Volume 83 fL (79-100) Mean Corpuscular Hemoglobin 29 pg (25-35) Mean Corpuscular Hemoglobin Concent 35 g/dL (31-37) Red Cell Distribution Width 13.6 % (11.5-14.5) Platelet Count 267 x10^3/uL (140-400) Neutrophils (%) (Auto) 61 % (31-73) Lymphocytes (%) (Auto) 29 % (24-48) Monocytes (%) (Auto) 7 % (0-9) Eosinophils (%) (Auto) 2 % (0-3) Basophils (%) (Auto) 1 % (0-3) Neutrophils # (Auto) 4.5 x10^3uL (1.8-7.7) Lymphocytes # (Auto) 2.1 x10^3/uL (1.0-4.8) Monocytes # (Auto) 0.5 x10^3/uL (0.0-1.1) Eosinophils # (Auto) 0.1 x10^3/uL (0.0-0.7) Basophils # (Auto) 0.1 x10^3/uL (0.0-0.2) Prothrombin Time 13.0 SEC (11.7-14.0) Prothromb Time International Ratio 1.0 (0.8-1.1) Activated Partial Thromboplast Time 29 SEC (24-38) Sodium Level 133 mmol/L (136-145) Potassium Level 3.8 mmol/L (3.5-5.1) Chloride Level 96 mmol/L (98-107) Carbon Dioxide Level 25 mmol/L (21-32) Anion Gap 12 (6-14) Blood Urea Nitrogen 12 mg/dL (7-20) Creatinine 0.8 mg/dL (0.6-1.0) Estimated GFR (Cockcroft-Gault) 78.7 BUN/Creatinine Ratio 15 (6-20) Glucose Level 500 mg/dL (70-99) Calcium Level 9.6 mg/dL (8.5-10.1) Total Bilirubin 0.4 mg/dL (0.2-1.0) Aspartate Amino Transf (AST/SGOT) 18 U/L (15-37) Alanine Aminotransferase (ALT/SGPT) 40 U/L (14-59) Alkaline Phosphatase 77 U/L (46-116) Total Protein 8.5 g/dL (6.4-8.2) Albumin 3.5 g/dL (3.4-5.0) Albumin/Globulin Ratio 0.7 (1.0-1.7) Test 02/15/18 23:48 02/16/18 04:20 02/16/18 04:28 02/16/18 07:26 Glucose (Fingerstick) 548 mg/dL (70-99) 340 mg/dL (70-99) White Blood Count 6.4 x10^3/uL (4.0-11.0) Red Blood Count 4.43 x10^6/uL (3.50-5.40) Hemoglobin 13.0 g/dL (12.0-15.5) Hematocrit 36.8 % (36.0-47.0) Mean Corpuscular Volume 83 fL (79-100) Mean Corpuscular Hemoglobin 29 pg (25-35) Mean Corpuscular Hemoglobin Concent 35 g/dL (31-37) Red Cell Distribution Width 13.2 % (11.5-14.5) Platelet Count 239 x10^3/uL (140-400) Neutrophils (%) (Auto) 57 % (31-73) Lymphocytes (%) (Auto) 33 % (24-48) Monocytes (%) (Auto) 8 % (0-9) Eosinophils (%) (Auto) 2 % (0-3) Basophils (%) (Auto) 1 % (0-3) Neutrophils # (Auto) 3.6 x10^3uL (1.8-7.7) Lymphocytes # (Auto) 2.1 x10^3/uL (1.0-4.8) Monocytes # (Auto) 0.5 x10^3/uL (0.0-1.1) Eosinophils # (Auto) 0.1 x10^3/uL (0.0-0.7) Basophils # (Auto) 0.0 x10^3/uL (0.0-0.2) Sodium Level 134 mmol/L (136-145) Potassium Level 3.6 mmol/L (3.5-5.1) Chloride Level 100 mmol/L (98-107) Carbon Dioxide Level 25 mmol/L (21-32) Anion Gap 9 (6-14) Blood Urea Nitrogen 10 mg/dL (7-20) Creatinine 0.7 mg/dL (0.6-1.0) Estimated GFR (Cockcroft-Gault) 91.8 BUN/Creatinine Ratio 14 (6-20) Glucose Level 353 mg/dL (70-99) Calcium Level 8.9 mg/dL (8.5-10.1) Total Bilirubin 0.7 mg/dL (0.2-1.0) Aspartate Amino Transf (AST/SGOT) 15 U/L (15-37) Alanine Aminotransferase (ALT/SGPT) 37 U/L (14-59) Alkaline Phosphatase 72 U/L (46-116) Total Protein 7.3 g/dL (6.4-8.2) Albumin 3.1 g/dL (3.4-5.0) Albumin/Globulin Ratio 0.7 (1.0-1.7) Allergies: Coded Allergies: acetaminophen (Verified Allergy, Severe, THROAT SWELLS, 05/29/15) propoxyphene (Verified Allergy, Severe, THROAT SWELLS, 05/29/15) Penicillins (Verified Allergy, Intermediate, HIVES, 05/29/15) orange (Verified Allergy, Intermediate, 02/03/18) vancomycin (Verified Allergy, Intermediate, 02/02/18) Medications: Current Medications Medications (Trade) Dose Ordered Sig/Ricardo Route PRN Reason Start Time Stop Time Status Last Admin Dose Admin Sodium Chloride 500 ml @ 500 mls/hr Q1H IV 02/15/18 21:30 02/15/18 22:00 DC 02/15/18 21:30 Pantoprazole Sodium (PROTONIX VIAL for IV PUSH) 80 mg 1X ONCE IVP 02/15/18 22:30 02/15/18 22:31 DC 02/15/18 22:36 Hyoscyamine (Anaspaz) 0.125 mg 1X ONCE PO 02/15/18 22:45 02/15/18 22:46 DC 02/15/18 22:36 Sodium Chloride 1,000 ml @ 125 mls/hr Q8H IV 02/15/18 23:15 02/16/18 23:14 02/16/18 05:38 Enoxaparin Sodium (Lovenox 100mg Syringe) 100 mg Q12HR SQ 02/16/18 09:00 02/16/18 11:14 DC 02/16/18 09:08 Insulin Glargine (Lantus) 66 units 1X ONCE SQ 02/16/18 00:15 02/16/18 00:16 DC 02/16/18 00:31 Morphine Sulfate (Morphine Sulfate) 1 mg PRN Q3HRS PRN IV PAIN 02/16/18 00:00 02/16/18 10:43 Imaging: Imaging: CT A/P FINDINGS: Limited evaluation of solid abdominal and pelvic organs due to lack of IV contrast. Heart is normal in size. No pericardial or pleural effusion. Clear lung bases. Noncontrast appearance of the liver, spleen, pancreas, adrenals within normal limits. Status post cholecystectomy. No nephrolithiasis or hydronephrosis. No enlarged retroperitoneal or pelvic adenopathy. No free pelvic fluid or ascites. Small fat-containing left inguinal hernia. No bowel obstruction. Anteverted uterus. Urinary bladder demonstrates no radiopaque stones. Normal appendix. No pneumoperitoneum. No suspicious bony lesion. IMPRESSION: Limited evaluation of solid abdominal and pelvic organs due to lack of IV contrast. No acute findings. PE: GEN: NAD, drinking contrast for CT HEENT: Atraumatic, PERRL LUNGS: CTAB HEART: RRR ABD: overweight, NABS, soft, non-distended, vaguely tender LLQ EXTREMITY: No edema SKIN: No rashes, no jaundice NEURO/PSYCH: A & O 3 A/P: A/P: N/v, chronic lower abd pain - question of blood in emesis and stools Uncontrolled DM, Factor V Leiden on Coumadin CRC screen - average risk, no previous S/p cholecystectomy -- Labs and CT unrevealing. Plans for CT angio, await this. If unrevealing, would consider GES as next step. Okay for clears. ADAT. She does not take Reglan at home and has not needed Miralax since last discharge - has both ordered here. Will add PPI QD and dicyclomine TID PRN. GABRIELA BRYSON Feb 16, 2018 12:17
[2018-02-16] MEDS ORDERED: DICYCLOMINE HCL 10 MG CAPSULE PO PRN (12:30)
--- NOTE | 2018-02-16 12:54 | PDOC1 ---
History and Physical Date of Admission Date of Admission 02/16/18 Identification/Chief Complaint Chief Complaint N/V, abd pain Source Source: Chart review, Patient History of Present Illness History of Present Illness HPI Patient is a 42 year old [female] who presents with GI bleeding, N/V ,abd pain x3ds. pt was dced by me 1 week ago for similar symptoms. She said since dc, abd pain was better 2/10. till Wednesday, She started to have severe diffuse abd pain, dull, /10, no radiation. also has multiple times N/V , with bright red blood. also has loose BM with some bright red blood clots. Hb stable in ER 14, and 13 today. no fever, chills, cough, sob. has been taking warfarin for h/o dvt, PE, last time 2ys ago, factor 5 leiden. INR IN ER 1. abd ct in ER wo contrast non remarkable. Past Medical History Cardiovascular: No pertinent hx Pulmonary: No pertinent hx CENTRAL NERVOUS SYSTEM: Migraine GI: No pertinent hx Heme/Onc: Other Hepatobiliary: No pertinent hx Psych: No pertinent hx Rheumatologic: No pertinent hx Infectious disease: No pertinent hx Renal/: No pertinent hx Endocrine: Diabetes Past Surgical History Past Surgical History: Cholecystectomy, Tubal Ligation Family History Family History: Diabetes, High Cholestrol, Migranes Family History: Grandparents Social History Smoke: No ALCOHOL: none Drugs: None Current Medications Current Medications Current Medications Medications (Trade) Dose Ordered Sig/Ricardo Start Time Stop Time Status Last Admin Dose Admin Atorvastatin Calcium (Lipitor) 40 mg HS 02/16/18 21:00 Clonazepam (KlonoPIN) 0.5 mg PRN DAILY PRN 02/16/18 00:00 Dextrose (Dextrose 50%-Water Syringe) 12.5 gm PRN Q15MIN PRN 02/16/18 11:15 Dicyclomine HCl (Bentyl) 10 mg QID PRN 02/16/18 12:30 Docusate Sodium (Colace) 100 mg PRN DAILY PRN 02/16/18 11:15 Enoxaparin Sodium (Lovenox 100mg Syringe) 100 mg Q12HR 02/16/18 09:00 02/16/18 11:14 DC 02/16/18 09:08 100 MG Hydrochlorothiazide (Microzide) 12.5 mg DAILY 02/16/18 09:00 02/16/18 11:14 DC Hyoscyamine (Anaspaz) 0.125 mg 1X ONCE 02/15/18 22:45 02/15/18 22:46 DC 02/15/18 22:36 0.125 MG Info (CONTRAST GIVEN -- Rx MONITORING) 1 each PRN DAILY PRN 02/16/18 11:30 02/18/18 11:29 Insulin Glargine (Lantus) 50 units QHS 02/16/18 21:00 Insulin Human Lispro (HumaLOG) 20 units TIDAC 02/16/18 11:30 Iohexol (Omnipaque 240 Mg/ml) 30 ml 1X ONCE 02/16/18 11:30 02/16/18 11:31 DC Iohexol (Omnipaque 300 Mg/ml) 75 ml 1X ONCE 02/16/18 11:30 02/16/18 11:31 DC Lisinopril (Prinivil) 10 mg DAILY 02/16/18 09:00 Losartan Potassium (Cozaar) 100 mg DAILY 02/16/18 09:00 02/16/18 11:14 DC Metoclopramide HCl (Reglan) 10 mg [id number] 02/16/18 08:00 Morphine Sulfate (Morphine Sulfate) 2 mg PRN Q2HR PRN 02/16/18 11:15 Non-Formulary Medication (Quinapril/ Hydrochlorothiazide (Quinapril-Hctz 10-12.5 Mg Tab)) 1 each DAILY 02/16/18 09:00 UNV Ondansetron HCl (Zofran) 4 mg PRN Q6HRS PRN 02/16/18 11:15 Pantoprazole Sodium (PROTONIX VIAL for IV PUSH) 80 mg 1X ONCE 02/15/18 22:30 02/15/18 22:31 DC 02/15/18 22:36 80 MG Pantoprazole Sodium (Protonix) 40 mg DAILYAC 02/16/18 13:00 Polyethylene Glycol (miraLAX PACKET) 17 gm BID 02/16/18 09:00 Pregabalin (Lyrica) 50 mg BID 02/16/18 09:00 Sertraline HCl (Zoloft) 50 mg DAILY 02/16/18 09:00 Sodium Chloride 1,000 ml @ 75 mls/hr [id number] 02/16/18 12:00 Tramadol HCl (Ultram) 50 mg PRN Q6HRS PRN 02/16/18 11:15 Allergies Allergies Allergies Coded Allergies Type Severity Reaction Last Updated Verified acetaminophen Allergy Severe THROAT SWELLS 05/29/15 Yes propoxyphene Allergy Severe THROAT SWELLS 05/29/15 Yes Penicillins Allergy Intermediate HIVES 05/29/15 Yes orange Allergy Intermediate 02/03/18 Yes vancomycin Allergy Intermediate 02/02/18 Yes ROS Review of System CONSTITUTIONAL: No fever or chills EYES: No recent changes SKIN: No rash or itching CARDIOVASCULAR: No chest pain, syncope, palpitations, or edema RESPIRATORY: No SOB or cough GASTROINTESTINAL: No nausea, vomiting or abdominal pain NEUROLOGICAL: No headaches or weakness ENDOCRINE: No cold or heat intolerance GENITOURINARY: No urgency or frequency of urination MUSCULOSKELETAL: No back pain or joint pain LYMPHATICS: No enlarged lymph nodes PSYCHIATRIC: No anxiety or depression Physical Exam Physical Exam GEN.: No apparent distress. Alert and oriented. HEENT: Head is normocephalic, atraumatic NECK: Supple. LUNGS: Clear to auscultation. HEART: RRR, S1, S2 present. Peripheral pulses intact ABDOMEN: Soft, Positive bowel sounds. diffuse moderate abd tenderness without guarding or rebound. EXTREMITIES: Without any cyanosis. NEUROLOGIC: Normal speech, normal tone PSYCHIATRIC: Normal affect, normal mood. SKIN: No ulcerations Vitals Vitals Vital Signs Date Time Temp Pulse Resp B/P (MAP) Pulse Ox O2 Delivery O2 Flow Rate FiO2 02/16/18 11:00 98.3 77 18 128/85 (99) 95 Room Air 98.3 Labs Labs Laboratory Tests Test 02/15/18 21:10 02/15/18 21:29 02/15/18 21:32 02/15/18 21:40 Urine Collection Type Unknown Urine Color Yellow Urine Clarity Clear Urine pH 5.5 Urine Specific [place] >=1.030 Urine Protein Negative mg/dL (NEG-TRACE) Urine Glucose (UA) >=1000 mg/dL (NEG) Urine Ketones (Stick) Negative mg/dL (NEG) Urine Blood Negative (NEG) Urine Nitrite Negative (NEG) Urine Bilirubin Negative (NEG) Urine Urobilinogen Dipstick 0.2 mg/dL (0.2 mg/dL) Urine Leukocyte Esterase Negative (NEG) Urine RBC Occ /HPF (0-2) Urine WBC 1-4 /HPF (0-4) Urine Squamous Epithelial Cells Few /LPF Urine Bacteria Moderate /HPF (0-FEW) Stool Occult Blood Negative (NEG) Bedside Urine HCG, Qualitative Hcg negative (Negative) White Blood Count 7.3 x10^3/uL (4.0-11.0) Red Blood Count 4.94 x10^6/uL (3.50-5.40) Hemoglobin 14.3 g/dL (12.0-15.5) Hematocrit 41.2 % (36.0-47.0) Mean Corpuscular Volume 83 fL (79-100) Mean Corpuscular Hemoglobin 29 pg (25-35) Mean Corpuscular Hemoglobin Concent 35 g/dL (31-37) Red Cell Distribution Width 13.6 % (11.5-14.5) Platelet Count 267 x10^3/uL (140-400) Neutrophils (%) (Auto) 61 % (31-73) Lymphocytes (%) (Auto) 29 % (24-48) Monocytes (%) (Auto) 7 % (0-9) Eosinophils (%) (Auto) 2 % (0-3) Basophils (%) (Auto) 1 % (0-3) Neutrophils # (Auto) 4.5 x10^3uL (1.8-7.7) Lymphocytes # (Auto) 2.1 x10^3/uL (1.0-4.8) Monocytes # (Auto) 0.5 x10^3/uL (0.0-1.1) Eosinophils # (Auto) 0.1 x10^3/uL (0.0-0.7) Basophils # (Auto) 0.1 x10^3/uL (0.0-0.2) Prothrombin Time 13.0 SEC (11.7-14.0) Prothromb Time International Ratio 1.0 (0.8-1.1) Activated Partial Thromboplast Time 29 SEC (24-38) Sodium Level 133 mmol/L (136-145) Potassium Level 3.8 mmol/L (3.5-5.1) Chloride Level 96 mmol/L (98-107) Carbon Dioxide Level 25 mmol/L (21-32) Anion Gap 12 (6-14) Blood Urea Nitrogen 12 mg/dL (7-20) Creatinine 0.8 mg/dL (0.6-1.0) Estimated GFR (Cockcroft-Gault) 78.7 BUN/Creatinine Ratio 15 (6-20) Glucose Level 500 mg/dL (70-99) Calcium Level 9.6 mg/dL (8.5-10.1) Total Bilirubin 0.4 mg/dL (0.2-1.0) Aspartate Amino Transf (AST/SGOT) 18 U/L (15-37) Alanine Aminotransferase (ALT/SGPT) 40 U/L (14-59) Alkaline Phosphatase 77 U/L (46-116) Total Protein 8.5 g/dL (6.4-8.2) Albumin 3.5 g/dL (3.4-5.0) Albumin/Globulin Ratio 0.7 (1.0-1.7) Test 02/15/18 23:48 02/16/18 04:20 02/16/18 04:28 02/16/18 07:26 Glucose (Fingerstick) 548 mg/dL (70-99) 340 mg/dL (70-99) White Blood Count 6.4 x10^3/uL (4.0-11.0) Red Blood Count 4.43 x10^6/uL (3.50-5.40) Hemoglobin 13.0 g/dL (12.0-15.5) Hematocrit 36.8 % (36.0-47.0) Mean Corpuscular Volume 83 fL (79-100) Mean Corpuscular Hemoglobin 29 pg (25-35) Mean Corpuscular Hemoglobin Concent 35 g/dL (31-37) Red Cell Distribution Width 13.2 % (11.5-14.5) Platelet Count 239 x10^3/uL (140-400) Neutrophils (%) (Auto) 57 % (31-73) Lymphocytes (%) (Auto) 33 % (24-48) Monocytes (%) (Auto) 8 % (0-9) Eosinophils (%) (Auto) 2 % (0-3) Basophils (%) (Auto) 1 % (0-3) Neutrophils # (Auto) 3.6 x10^3uL (1.8-7.7) Lymphocytes # (Auto) 2.1 x10^3/uL (1.0-4.8) Monocytes # (Auto) 0.5 x10^3/uL (0.0-1.1) Eosinophils # (Auto) 0.1 x10^3/uL (0.0-0.7) Basophils # (Auto) 0.0 x10^3/uL (0.0-0.2) Sodium Level 134 mmol/L (136-145) Potassium Level 3.6 mmol/L (3.5-5.1) Chloride Level 100 mmol/L (98-107) Carbon Dioxide Level 25 mmol/L (21-32) Anion Gap 9 (6-14) Blood Urea Nitrogen 10 mg/dL (7-20) Creatinine 0.7 mg/dL (0.6-1.0) Estimated GFR (Cockcroft-Gault) 91.8 BUN/Creatinine Ratio 14 (6-20) Glucose Level 353 mg/dL (70-99) Calcium Level 8.9 mg/dL (8.5-10.1) Total Bilirubin 0.7 mg/dL (0.2-1.0) Aspartate Amino Transf (AST/SGOT) 15 U/L (15-37) Alanine Aminotransferase (ALT/SGPT) 37 U/L (14-59) Alkaline Phosphatase 72 U/L (46-116) Total Protein 7.3 g/dL (6.4-8.2) Albumin 3.1 g/dL (3.4-5.0) Albumin/Globulin Ratio 0.7 (1.0-1.7) Laboratory Tests Test 02/15/18 21:10 02/15/18 21:29 02/15/18 21:32 02/15/18 21:40 Urine Collection Type Unknown Urine Color Yellow Urine Clarity Clear Urine pH 5.5 Urine Specific [place] >=1.030 Urine Protein Negative mg/dL (NEG-TRACE) Urine Glucose (UA) >=1000 mg/dL (NEG) Urine Ketones (Stick) Negative mg/dL (NEG) Urine Blood Negative (NEG) Urine Nitrite Negative (NEG) Urine Bilirubin Negative (NEG) Urine Urobilinogen Dipstick 0.2 mg/dL (0.2 mg/dL) Urine Leukocyte Esterase Negative (NEG) Urine RBC Occ /HPF (0-2) Urine WBC 1-4 /HPF (0-4) Urine Squamous Epithelial Cells Few /LPF Urine Bacteria Moderate /HPF (0-FEW) Stool Occult Blood Negative (NEG) Bedside Urine HCG, Qualitative Hcg negative (Negative) White Blood Count 7.3 x10^3/uL (4.0-11.0) Red Blood Count 4.94 x10^6/uL (3.50-5.40) Hemoglobin 14.3 g/dL (12.0-15.5) Hematocrit 41.2 % (36.0-47.0) Mean Corpuscular Volume 83 fL (79-100) Mean Corpuscular Hemoglobin 29 pg (25-35) Mean Corpuscular Hemoglobin Concent 35 g/dL (31-37) Red Cell Distribution Width 13.6 % (11.5-14.5) Platelet Count 267 x10^3/uL (140-400) Neutrophils (%) (Auto) 61 % (31-73) Lymphocytes (%) (Auto) 29 % (24-48) Monocytes (%) (Auto) 7 % (0-9) Eosinophils (%) (Auto) 2 % (0-3) Basophils (%) (Auto) 1 % (0-3) Neutrophils # (Auto) 4.5 x10^3uL (1.8-7.7) Lymphocytes # (Auto) 2.1 x10^3/uL (1.0-4.8) Monocytes # (Auto) 0.5 x10^3/uL (0.0-1.1) Eosinophils # (Auto) 0.1 x10^3/uL (0.0-0.7) Basophils # (Auto) 0.1 x10^3/uL (0.0-0.2) Prothrombin Time 13.0 SEC (11.7-14.0) Prothromb Time International Ratio 1.0 (0.8-1.1) Activated Partial Thromboplast Time 29 SEC (24-38) Sodium Level 133 mmol/L (136-145) Potassium Level 3.8 mmol/L (3.5-5.1) Chloride Level 96 mmol/L (98-107) Carbon Dioxide Level 25 mmol/L (21-32) Anion Gap 12 (6-14) Blood Urea Nitrogen 12 mg/dL (7-20) Creatinine 0.8 mg/dL (0.6-1.0) Estimated GFR (Cockcroft-Gault) 78.7 BUN/Creatinine Ratio 15 (6-20) Glucose Level 500 mg/dL (70-99) Calcium Level 9.6 mg/dL (8.5-10.1) Total Bilirubin 0.4 mg/dL (0.2-1.0) Aspartate Amino Transf (AST/SGOT) 18 U/L (15-37) Alanine Aminotransferase (ALT/SGPT) 40 U/L (14-59) Alkaline Phosphatase 77 U/L (46-116) Total Protein 8.5 g/dL (6.4-8.2) Albumin 3.5 g/dL (3.4-5.0) Albumin/Globulin Ratio 0.7 (1.0-1.7) Test 02/15/18 23:48 02/16/18 04:20 02/16/18 04:28 02/16/18 07:26 Glucose (Fingerstick) 548 mg/dL (70-99) 340 mg/dL (70-99) White Blood Count 6.4 x10^3/uL (4.0-11.0) Red Blood Count 4.43 x10^6/uL (3.50-5.40) Hemoglobin 13.0 g/dL (12.0-15.5) Hematocrit 36.8 % (36.0-47.0) Mean Corpuscular Volume 83 fL (79-100) Mean Corpuscular Hemoglobin 29 pg (25-35) Mean Corpuscular Hemoglobin Concent 35 g/dL (31-37) Red Cell Distribution Width 13.2 % (11.5-14.5) Platelet Count 239 x10^3/uL (140-400) Neutrophils (%) (Auto) 57 % (31-73) Lymphocytes (%) (Auto) 33 % (24-48) Monocytes (%) (Auto) 8 % (0-9) Eosinophils (%) (Auto) 2 % (0-3) Basophils (%) (Auto) 1 % (0-3) Neutrophils # (Auto) 3.6 x10^3uL (1.8-7.7) Lymphocytes # (Auto) 2.1 x10^3/uL (1.0-4.8) Monocytes # (Auto) 0.5 x10^3/uL (0.0-1.1) Eosinophils # (Auto) 0.1 x10^3/uL (0.0-0.7) Basophils # (Auto) 0.0 x10^3/uL (0.0-0.2) Sodium Level 134 mmol/L (136-145) Potassium Level 3.6 mmol/L (3.5-5.1) Chloride Level 100 mmol/L (98-107) Carbon Dioxide Level 25 mmol/L (21-32) Anion Gap 9 (6-14) Blood Urea Nitrogen 10 mg/dL (7-20) Creatinine 0.7 mg/dL (0.6-1.0) Estimated GFR (Cockcroft-Gault) 91.8 BUN/Creatinine Ratio 14 (6-20) Glucose Level 353 mg/dL (70-99) Calcium Level 8.9 mg/dL (8.5-10.1) Total Bilirubin 0.7 mg/dL (0.2-1.0) Aspartate Amino Transf (AST/SGOT) 15 U/L (15-37) Alanine Aminotransferase (ALT/SGPT) 37 U/L (14-59) Alkaline Phosphatase 72 U/L (46-116) Total Protein 7.3 g/dL (6.4-8.2) Albumin 3.1 g/dL (3.4-5.0) Albumin/Globulin Ratio 0.7 (1.0-1.7) VTE Prophylaxis Ordered VTE Prophylaxis Devices: Yes VTE Pharmacological Prophylaxi: No Assessment/Plan Assessment/Plan intractable N/V and abd pain with hemoptesis, and hematomesis and hematochezia Acute blood loss with stable hb Migraines DM - with A1c of 12.6 FV leiden subtherapeutic INR on warfarin 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 add protonix daily diet: clear liquid dvt ppx: SCD code: FC displacement: home when stable DEXTER REYES MD Feb 16, 2018 12:54
[2018-02-16] MEDS: PANTOPRAZOLE 40 MG TABLET.DR. PO SCH (13:18)
[2018-02-16] MEDS: INSULIN LISPRO 300 UNITS/3 ML INSULN.PEN. SQ SCH ×4 (14:26→17:04)
[2018-02-16 15:00] VITALS: BP 130/87
--- NOTE | 2018-02-16 16:13 | RAD ---
CTA of the abdomen and pelvis with contrast, 02/16/2018: HISTORY: Possible bowel ischemia, abdominal pain Multidetector CT imaging was performed following an IV bolus injection of iodinated contrast material. Multiplanar reconstructions were produced including MIP images as well as 3-D volume rendered reconstructions of the major arteries. There is residual GI tract contrast in the distal small bowel and colon from yesterday's CT exam. No significant aortoiliac calcific plaquing is present. The aorta is of normal caliber. The origins of the celiac and superior mesenteric arteries from the aorta are widely patent. There are single widely patent renal arteries bilaterally. The common iliac, internal iliac and external iliac arteries are unremarkable. The liver is enlarged measuring 23 cm in craniocaudad extent. The spleen is at the upper limits of normal in size measuring 13 cm in craniocaudad extent. The gallbladder is surgically absent. No pancreatic abnormality is seen. The kidneys and adrenal glands are unremarkable. The bowel loops are not dilated. No free air or free fluid is evident in the abdomen or pelvis. IMPRESSION: 1. Normal CTA of the abdomen and pelvis. 2. Hepatomegaly PQRS Compliance Statement: One or more of the following individualized dose reduction techniques were utilized for this examination: 1. Automated exposure control 2. Adjustment of the mA and/or kV according to patient size 3. Use of iterative reconstruction technique Electronically signed by: López Angelo MD (02/16/2018 4:10 PM) [facility]
[2018-02-16 19:00] VITALS: BP 128/80
[2018-02-16] MEDS: ATORVASTATIN CALCIUM 40 MG TABLET. PO SCH (20:31)
[2018-02-16] MEDS ORDERED: INSULIN GLARGINE 300 UNITS/3 ML INSULN.PEN. SQ SCH ×2 (21:00)
[2018-02-16 23:00] VITALS: BP 105/62
[2018-02-17] MEDS: MORPHINE SULFATE 2 MG/ML VIAL. IV PRN ×5 (00:36→22:41)
[2018-02-17] MEDS: IV NORMAL SALINE 1000ML BAG 1,000 ML IV SCH ×3 (00:39→12:13)
[2018-02-17 03:00] VITALS: BP 120/73
[2018-02-17 04:46] LABS: BASO % 1 % (0-3); EOS # 0.1 x10^3/uL (0.0-0.7); EOS % 2 % (0-3); HEMATOCRIT 35.5 % (36.0-47.0); HEMOGLOBIN 12.7 g/dL (12.0-15.5); LYMPH # 1.5 x10^3/uL (1.0-4.8); LYMPH % 25 % (24-48); MEAN CORPUSCULAR HEMOGLOBIN 30 pg (25-35); MEAN CORPUSCULAR HGB CONC 36 g/dL (31-37); MEAN CORPUSCULAR VOLUME 84 fL (79-100); MONO # 0.5 x10^3/uL (0.0-1.1); MONO % 8 % (0-9); NEUT % 65 % (31-73); PLATELET COUNT 229 x10^3/uL (140-400); RED BLOOD COUNT 4.25 x10^6/uL (3.50-5.40); RED CELL DISTRIBUTION WIDTH 13.8 % (11.5-14.5); WHITE BLOOD COUNT 6.2 x10^3/uL (4.0-11.0)
[2018-02-17 05:02] LABS: CALCIUM 8.5 mg/dL (8.5-10.1); CREATININE 0.7 mg/dL (0.6-1.0); GFR 91.8; POTASSIUM 3.7 mmol/L (3.5-5.1)
[2018-02-17 05:05] LABS: PROTHROMBIN TIME PATIENT 13.7 SEC (11.7-14.0)
[2018-02-17 07:00] VITALS: BP 103/57
[2018-02-17] MEDS: PREGABALIN 50 MG CAPSULE PO SCH (08:24)
[2018-02-17] MEDS: SERTRALINE 50 MG TABLET. PO SCH (08:24)
[2018-02-17] MEDS: PANTOPRAZOLE 40 MG TABLET.DR. PO SCH (08:24)
[2018-02-17] MEDS: INSULIN LISPRO 300 UNITS/3 ML INSULN.PEN. SQ SCH ×6 (08:33→17:00)
[2018-02-17 11:00] VITALS: BP 144/88
[2018-02-17] MEDS: LISINOPRIL 10 MG TABLET PO SCH (12:04)
--- NOTE | 2018-02-17 14:10 | PDOC ---
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 add protonix daily diet: advance to full liquid dvt ppx: resume warfarin, add lovenox bid for bridging, INR daily code: FC displacement: home when stable History of Present Illness History of Present Illness ROS: no fever, chills, sob or chest pain some nausea,no vomiting no BM still has abd pain ,slightly better 09/05. hyperglycemia Vitals Vitals Vital Signs Date Time Temp Pulse Resp B/P (MAP) Pulse Ox O2 Delivery O2 Flow Rate FiO2 02/17/18 12:17 Room Air 02/17/18 12:04 77 144/88 02/17/18 11:00 97.5 18 98 97.5 Physical Exam General: Alert, Oriented X3, Cooperative Heart: Regular rate, Normal S1, Normal S2 Lungs: Clear Abdomen: Normal bowel sounds, Soft, Other (diffuse middle abd mild tenderness) Extremities: No clubbing, No cyanosis Skin: No rashes Labs LABS Laboratory Tests Test 02/16/18 14:19 02/16/18 16:59 02/16/18 20:28 02/17/18 04:10 Glucose (Fingerstick) 359 mg/dL (70-99) 296 mg/dL (70-99) 136 mg/dL (70-99) White Blood Count 6.2 x10^3/uL (4.0-11.0) Red Blood Count 4.25 x10^6/uL (3.50-5.40) Hemoglobin 12.7 g/dL (12.0-15.5) Hematocrit 35.5 % (36.0-47.0) Mean Corpuscular Volume 84 fL (79-100) Mean Corpuscular Hemoglobin 30 pg (25-35) Mean Corpuscular Hemoglobin Concent 36 g/dL (31-37) Red Cell Distribution Width 13.8 % (11.5-14.5) Platelet Count 229 x10^3/uL (140-400) Neutrophils (%) (Auto) 65 % (31-73) Lymphocytes (%) (Auto) 25 % (24-48) Monocytes (%) (Auto) 8 % (0-9) Eosinophils (%) (Auto) 2 % (0-3) Basophils (%) (Auto) 1 % (0-3) Neutrophils # (Auto) 4.0 x10^3uL (1.8-7.7) Lymphocytes # (Auto) 1.5 x10^3/uL (1.0-4.8) Monocytes # (Auto) 0.5 x10^3/uL (0.0-1.1) Eosinophils # (Auto) 0.1 x10^3/uL (0.0-0.7) Basophils # (Auto) 0.0 x10^3/uL (0.0-0.2) Prothrombin Time 13.7 SEC (11.7-14.0) Prothromb Time International Ratio 1.1 (0.8-1.1) Sodium Level 136 mmol/L (136-145) Potassium Level 3.7 mmol/L (3.5-5.1) Chloride Level 102 mmol/L (98-107) Carbon Dioxide Level 24 mmol/L (21-32) Anion Gap 10 (6-14) Blood Urea Nitrogen 8 mg/dL (7-20) Creatinine 0.7 mg/dL (0.6-1.0) Estimated GFR (Cockcroft-Gault) 91.8 Glucose Level 312 mg/dL (70-99) Calcium Level 8.5 mg/dL (8.5-10.1) Test 02/17/18 07:38 02/17/18 10:58 Glucose (Fingerstick) 325 mg/dL (70-99) 280 mg/dL (70-99) Comment Review of Relevant I have reviewed the following items tasha (where applicable) has been applied. Labs Laboratory Tests Test 02/15/18 21:10 02/15/18 21:29 02/15/18 21:32 02/15/18 21:40 Urine Collection Type Unknown Urine Color Yellow Urine Clarity Clear Urine pH 5.5 Urine Specific [place] >=1.030 Urine Protein Negative mg/dL (NEG-TRACE) Urine Glucose (UA) >=1000 mg/dL (NEG) Urine Ketones (Stick) Negative mg/dL (NEG) Urine Blood Negative (NEG) Urine Nitrite Negative (NEG) Urine Bilirubin Negative (NEG) Urine Urobilinogen Dipstick 0.2 mg/dL (0.2 mg/dL) Urine Leukocyte Esterase Negative (NEG) Urine RBC Occ /HPF (0-2) Urine WBC 1-4 /HPF (0-4) Urine Squamous Epithelial Cells Few /LPF Urine Bacteria Moderate /HPF (0-FEW) Stool Occult Blood Negative (NEG) Bedside Urine HCG, Qualitative Hcg negative (Negative) White Blood Count 7.3 x10^3/uL (4.0-11.0) Red Blood Count 4.94 x10^6/uL (3.50-5.40) Hemoglobin 14.3 g/dL (12.0-15.5) Hematocrit 41.2 % (36.0-47.0) Mean Corpuscular Volume 83 fL (79-100) Mean Corpuscular Hemoglobin 29 pg (25-35) Mean Corpuscular Hemoglobin Concent 35 g/dL (31-37) Red Cell Distribution Width 13.6 % (11.5-14.5) Platelet Count 267 x10^3/uL (140-400) Neutrophils (%) (Auto) 61 % (31-73) Lymphocytes (%) (Auto) 29 % (24-48) Monocytes (%) (Auto) 7 % (0-9) Eosinophils (%) (Auto) 2 % (0-3) Basophils (%) (Auto) 1 % (0-3) Neutrophils # (Auto) 4.5 x10^3uL (1.8-7.7) Lymphocytes # (Auto) 2.1 x10^3/uL (1.0-4.8) Monocytes # (Auto) 0.5 x10^3/uL (0.0-1.1) Eosinophils # (Auto) 0.1 x10^3/uL (0.0-0.7) Basophils # (Auto) 0.1 x10^3/uL (0.0-0.2) Prothrombin Time 13.0 SEC (11.7-14.0) Prothromb Time International Ratio 1.0 (0.8-1.1) Activated Partial Thromboplast Time 29 SEC (24-38) Sodium Level 133 mmol/L (136-145) Potassium Level 3.8 mmol/L (3.5-5.1) Chloride Level 96 mmol/L (98-107) Carbon Dioxide Level 25 mmol/L (21-32) Anion Gap 12 (6-14) Blood Urea Nitrogen 12 mg/dL (7-20) Creatinine 0.8 mg/dL (0.6-1.0) Estimated GFR (Cockcroft-Gault) 78.7 BUN/Creatinine Ratio 15 (6-20) Glucose Level 500 mg/dL (70-99) Calcium Level 9.6 mg/dL (8.5-10.1) Total Bilirubin 0.4 mg/dL (0.2-1.0) Aspartate Amino Transf (AST/SGOT) 18 U/L (15-37) Alanine Aminotransferase (ALT/SGPT) 40 U/L (14-59) Alkaline Phosphatase 77 U/L (46-116) Total Protein 8.5 g/dL (6.4-8.2) Albumin 3.5 g/dL (3.4-5.0) Albumin/Globulin Ratio 0.7 (1.0-1.7) Test 02/15/18 23:48 02/16/18 04:20 02/16/18 04:28 02/16/18 07:26 Glucose (Fingerstick) 548 mg/dL (70-99) 340 mg/dL (70-99) White Blood Count 6.4 x10^3/uL (4.0-11.0) Red Blood Count 4.43 x10^6/uL (3.50-5.40) Hemoglobin 13.0 g/dL (12.0-15.5) Hematocrit 36.8 % (36.0-47.0) Mean Corpuscular Volume 83 fL (79-100) Mean Corpuscular Hemoglobin 29 pg (25-35) Mean Corpuscular Hemoglobin Concent 35 g/dL (31-37) Red Cell Distribution Width 13.2 % (11.5-14.5) Platelet Count 239 x10^3/uL (140-400) Neutrophils (%) (Auto) 57 % (31-73) Lymphocytes (%) (Auto) 33 % (24-48) Monocytes (%) (Auto) 8 % (0-9) Eosinophils (%) (Auto) 2 % (0-3) Basophils (%) (Auto) 1 % (0-3) Neutrophils # (Auto) 3.6 x10^3uL (1.8-7.7) Lymphocytes # (Auto) 2.1 x10^3/uL (1.0-4.8) Monocytes # (Auto) 0.5 x10^3/uL (0.0-1.1) Eosinophils # (Auto) 0.1 x10^3/uL (0.0-0.7) Basophils # (Auto) 0.0 x10^3/uL (0.0-0.2) Sodium Level 134 mmol/L (136-145) Potassium Level 3.6 mmol/L (3.5-5.1) Chloride Level 100 mmol/L (98-107) Carbon Dioxide Level 25 mmol/L (21-32) Anion Gap 9 (6-14) Blood Urea Nitrogen 10 mg/dL (7-20) Creatinine 0.7 mg/dL (0.6-1.0) Estimated GFR (Cockcroft-Gault) 91.8 BUN/Creatinine Ratio 14 (6-20) Glucose Level 353 mg/dL (70-99) Calcium Level 8.9 mg/dL (8.5-10.1) Total Bilirubin 0.7 mg/dL (0.2-1.0) Aspartate Amino Transf (AST/SGOT) 15 U/L (15-37) Alanine Aminotransferase (ALT/SGPT) 37 U/L (14-59) Alkaline Phosphatase 72 U/L (46-116) Total Protein 7.3 g/dL (6.4-8.2) Albumin 3.1 g/dL (3.4-5.0) Albumin/Globulin Ratio 0.7 (1.0-1.7) Test 02/16/18 12:44 02/16/18 14:19 02/16/18 16:59 02/16/18 20:28 Glucose (Fingerstick) 277 mg/dL (70-99) 359 mg/dL (70-99) 296 mg/dL (70-99) 136 mg/dL (70-99) Test 02/17/18 04:10 02/17/18 07:38 02/17/18 10:58 White Blood Count 6.2 x10^3/uL (4.0-11.0) Red Blood Count 4.25 x10^6/uL (3.50-5.40) Hemoglobin 12.7 g/dL (12.0-15.5) Hematocrit 35.5 % (36.0-47.0) Mean Corpuscular Volume 84 fL (79-100) Mean Corpuscular Hemoglobin 30 pg (25-35) Mean Corpuscular Hemoglobin Concent 36 g/dL (31-37) Red Cell Distribution Width 13.8 % (11.5-14.5) Platelet Count 229 x10^3/uL (140-400) Neutrophils (%) (Auto) 65 % (31-73) Lymphocytes (%) (Auto) 25 % (24-48) Monocytes (%) (Auto) 8 % (0-9) Eosinophils (%) (Auto) 2 % (0-3) Basophils (%) (Auto) 1 % (0-3) Neutrophils # (Auto) 4.0 x10^3uL (1.8-7.7) Lymphocytes # (Auto) 1.5 x10^3/uL (1.0-4.8) Monocytes # (Auto) 0.5 x10^3/uL (0.0-1.1) Eosinophils # (Auto) 0.1 x10^3/uL (0.0-0.7) Basophils # (Auto) 0.0 x10^3/uL (0.0-0.2) Prothrombin Time 13.7 SEC (11.7-14.0) Prothromb Time International Ratio 1.1 (0.8-1.1) Sodium Level 136 mmol/L (136-145) Potassium Level 3.7 mmol/L (3.5-5.1) Chloride Level 102 mmol/L (98-107) Carbon Dioxide Level 24 mmol/L (21-32) Anion Gap 10 (6-14) Blood Urea Nitrogen 8 mg/dL (7-20) Creatinine 0.7 mg/dL (0.6-1.0) Estimated GFR (Cockcroft-Gault) 91.8 Glucose Level 312 mg/dL (70-99) Calcium Level 8.5 mg/dL (8.5-10.1) Glucose (Fingerstick) 325 mg/dL (70-99) 280 mg/dL (70-99) Laboratory Tests Test 02/16/18 14:19 02/16/18 16:59 02/16/18 20:28 02/17/18 04:10 Glucose (Fingerstick) 359 mg/dL (70-99) 296 mg/dL (70-99) 136 mg/dL (70-99) White Blood Count 6.2 x10^3/uL (4.0-11.0) Red Blood Count 4.25 x10^6/uL (3.50-5.40) Hemoglobin 12.7 g/dL (12.0-15.5) Hematocrit 35.5 % (36.0-47.0) Mean Corpuscular Volume 84 fL (79-100) Mean Corpuscular Hemoglobin 30 pg (25-35) Mean Corpuscular Hemoglobin Concent 36 g/dL (31-37) Red Cell Distribution Width 13.8 % (11.5-14.5) Platelet Count 229 x10^3/uL (140-400) Neutrophils (%) (Auto) 65 % (31-73) Lymphocytes (%) (Auto) 25 % (24-48) Monocytes (%) (Auto) 8 % (0-9) Eosinophils (%) (Auto) 2 % (0-3) Basophils (%) (Auto) 1 % (0-3) Neutrophils # (Auto) 4.0 x10^3uL (1.8-7.7) Lymphocytes # (Auto) 1.5 x10^3/uL (1.0-4.8) Monocytes # (Auto) 0.5 x10^3/uL (0.0-1.1) Eosinophils # (Auto) 0.1 x10^3/uL (0.0-0.7) Basophils # (Auto) 0.0 x10^3/uL (0.0-0.2) Prothrombin Time 13.7 SEC (11.7-14.0) Prothromb Time International Ratio 1.1 (0.8-1.1) Sodium Level 136 mmol/L (136-145) Potassium Level 3.7 mmol/L (3.5-5.1) Chloride Level 102 mmol/L (98-107) Carbon Dioxide Level 24 mmol/L (21-32) Anion Gap 10 (6-14) Blood Urea Nitrogen 8 mg/dL (7-20) Creatinine 0.7 mg/dL (0.6-1.0) Estimated GFR (Cockcroft-Gault) 91.8 Glucose Level 312 mg/dL (70-99) Calcium Level 8.5 mg/dL (8.5-10.1) Test 02/17/18 07:38 02/17/18 10:58 Glucose (Fingerstick) 325 mg/dL (70-99) 280 mg/dL (70-99) Medications Current Medications Sodium Chloride 500 ml @ 500 mls/hr Q1H IV Last administered on 02/15/18at 21: 30; Start 02/15/18 at 21:30; Stop 02/15/18 at 22:00; Status DC Pantoprazole Sodium (PROTONIX VIAL for IV PUSH) 80 mg 1X ONCE IVP Last administered on 02/15/18at 22:36; Start 02/15/18 at 22:30; Stop 02/15/18 at 22 :31; Status DC Hyoscyamine (Anaspaz) 0.125 mg 1X ONCE PO Last administered on 02/15/18at 22: 36; Start 02/15/18 at 22:45; Stop 02/15/18 at 22:46; Status DC Ondansetron HCl (Zofran) 4 mg PRN Q8HRS PRN IV NAUSEA/VOMITING; Start at 23:15; Stop 02/16/18 at 12:51; Status DC Sodium Chloride 1,000 ml @ 125 mls/hr Q8H IV Last administered on 02/17/18at 00:39; Start 02/15/18 at 23:15; Stop 02/16/18 at 23:14; Status DC Clonazepam (KlonoPIN) 0.5 mg PRN DAILY PRN PO ANXIETY / AGITATION; Start 02/16 at 00:00 Enoxaparin Sodium (Lovenox 100mg Syringe) 100 mg Q12HR SQ Last administered on 02/16/18at 09:08; Start 02/16/18 at 09:00; Stop 02/16/18 at 11:14; Status DC Insulin Glargine (Lantus) 66 units QHS SQ ; Start 02/16/18 at 21:00; Stop at 21:00; Status DC Metoclopramide HCl (Reglan) 10 mg TIDWMEALHC PO ; Start 02/16/18 at 08:00; Stop 02/16/18 at 12:46; Status DC Pregabalin (Lyrica) 50 mg BID PO Last administered on 02/16/18at 20:31; Start 02/16/18 at 09:00; Stop 02/17/18 at 11:17; Status DC Sertraline HCl (Zoloft) 50 mg DAILY PO ; Start 02/16/18 at 09:00; Stop at 11:17; Status DC Losartan Potassium (Cozaar) 100 mg DAILY PO ; Start 02/16/18 at 09:00; Stop at 11:14; Status DC Polyethylene Glycol (miraLAX PACKET) 17 gm BID PO ; Start 02/16/18 at 09:00; Stop 02/16/18 at 12:46; Status DC Non-Formulary Medication (Quinapril/ Hydrochlorothiazide (Quinapril-Hctz 10- 12.5 Mg Tab)) 1 each DAILY PO ; Start 02/16/18 at 09:00; Status UNV Atorvastatin Calcium (Lipitor) 40 mg HS PO Last administered on 02/16/18at 20: 31; Start 02/16/18 at 21:00 Insulin Glargine (Lantus) 66 units 1X ONCE SQ Last administered on 02/16/18at 00:31; Start 02/16/18 at 00:15; Stop 02/16/18 at 00:16; Status DC Morphine Sulfate (Morphine Sulfate) 1 mg PRN Q3HRS PRN IV MODERATE PAIN Last administered on 02/16/18at 19:27; Start 02/16/18 at 00:00 Lisinopril (Prinivil) 10 mg DAILY PO Last administered on 02/17/18at 12:04; Start 02/16/18 at 09:00 Hydrochlorothiazide (Microzide) 12.5 mg DAILY PO ; Start 02/16/18 at 09:00; Stop 02/16/18 at 11:14; Status DC Insulin Glargine (Lantus) 50 units QHS SQ Last administered on 02/16/18at 20:39 ; Start 02/16/18 at 21:00; Stop 02/17/18 at 11:17; Status DC Ondansetron HCl (Zofran) 4 mg PRN Q6HRS PRN IV NAUSEA/VOMITING; Start at 11:15; Stop 02/16/18 at 12:52; Status DC Morphine Sulfate (Morphine Sulfate) 2 mg PRN Q2HR PRN IV MODERATE TO SEVERE PAIN; Start 02/16/18 at 11:15; Stop 02/16/18 at 12:51; Status DC Tramadol HCl (Ultram) 50 mg PRN Q6HRS PRN PO MILD TO MODERATE PAIN; Start at 11:15 Docusate Sodium (Colace) 100 mg PRN DAILY PRN PO CONSTIPATION; Start 02/16/18 at 11:15; Stop 02/16/18 at 12:51; Status DC Insulin Human Lispro (HumaLOG) 0-9 UNITS TIDWMEALS SQ Last administered on at 12:11; Start 02/16/18 at 12:00 Dextrose (Dextrose 50%-Water Syringe) 12.5 gm PRN Q15MIN PRN IV SEE COMMENTS; Start 02/16/18 at 11:15 Insulin Human Lispro (HumaLOG) 20 units TIDAC SQ Last administered on at 12:12; Start 02/16/18 at 11:30 Sodium Chloride 1,000 ml @ 75 mls/hr [id number] IV Last administered on at 12:13; Start 02/16/18 at 12:00 Iohexol (Omnipaque 240 Mg/ml) 30 ml 1X ONCE PO ; Start 02/16/18 at 11:30; Stop 02/16/18 at 11:31; Status DC Iohexol (Omnipaque 300 Mg/ml) 75 ml 1X ONCE IV Last administered on at 11:30; Start 02/16/18 at 11:30; Stop 02/16/18 at 11:31; Status DC Info (CONTRAST GIVEN -- Rx MONITORING) 1 each PRN DAILY PRN MC SEE COMMENTS; Start 02/16/18 at 11:30; Stop 02/18/18 at 11:29 Pantoprazole Sodium (Protonix) 40 mg DAILYAC PO Last administered on at 08:24; Start 02/16/18 at 13:00 Dicyclomine HCl (Bentyl) 10 mg QID PRN PO abdominal pain; Start 02/16/18 at 12 :30 Ondansetron HCl (Zofran) 4 mg PRN Q6HRS PRN IV NAUSEA/VOMITING; Start at 12:45 Morphine Sulfate (Morphine Sulfate) 2 mg PRN Q2HR PRN IV SEVERE PAIN Last administered on 02/17/18at 12:17; Start 02/16/18 at 12:45 Docusate Sodium (Colace) 100 mg PRN DAILY PRN PO CONSTIPATION; Start 02/16/18 at 12:45 Insulin Glargine (Lantus) 60 units QHS SQ ; Start 02/17/18 at 21:00 Enoxaparin Sodium (Lovenox 100mg Syringe) 100 mg Q12HR SQ Last administered on 02/17/18at 12:05; Start 02/17/18 at 12:00 Warfarin Sodium (Coumadin) 5 mg DAILY16 PO ; Start 02/17/18 at 16:00 Warfarin Sodium (Coumadin Per Physician) 1 each PRN DAILY PRN MC SEE COMMENTS Last administered on 02/17/18at 13:29; Start 02/17/18 at 11:30 Active Scripts Active Polyethylene Glycol 3350 17 Gm Powd.pack 17 Gm PO BID Enoxaparin Sodium 100 Mg/1 Ml Disp.syrin 100 Mg SQ Q12HR 14 Days Reported Atacand (Candesartan Cilexetil) 32 Mg Tablet 1 Tab PO DAILY Quinapril-Hctz 10-12.5 Mg Tab (Quinapril/Hydrochlorothiazide) 1 Each Tablet 1 Each PO DAILY Relpax (Eletriptan Hbr) 20 Mg Tablet 20 Mg PO Reglan (Metoclopramide Hcl) 10 Mg Tablet 10 Mg PO TIDWMEALHC Lyrica (Pregabalin) 50 Mg Capsule 50 Mg PO BID Clonazepam 0.5 Mg Tablet 1 Tab PO PRN DAILY PRN Zoloft (Sertraline Hcl) 50 Mg Tablet 1 Tab PO DAILY Crestor (Rosuvastatin Calcium) 10 Mg Tablet 1 Tab PO DAILY Lantus Solostar (Insulin Glargine,Hum.rec.anlog) 100 Unit/1 Ml Insuln.pen 66 Unit SQ QHS Vitals/I & O Vital Sign - Last 24 Hours 02/16/18 02/16/18 02/16/18 02/16/18 14:47 15:00 17:07 19:00 Temp 98.3 99.7 98.3 99.7 Pulse 81 84 Resp 18 17 B/P (MAP) 130/87 (101) 128/80 (96) Pulse Ox 96 95 97 O2 Delivery Room Air Room Air Room Air 02/16/18 02/16/18 02/16/18 02/16/18 19:27 20:00 20:00 23:00 Temp 99.0 99.0 Pulse 86 Resp 17 18 B/P (MAP) 105/62 (76) Pulse Ox 100 O2 Delivery Room Air Room Air Room Air Room Air 02/17/18 02/17/18 02/17/18 02/17/18 00:36 01:10 03:00 07:00 Temp 98.8 98.4 98.8 98.4 Pulse 83 80 Resp 17 18 B/P (MAP) 120/73 (89) 103/57 (72) Pulse Ox 98 96 O2 Delivery Room Air Room Air Room Air 02/17/18 02/17/18 02/17/18 02/17/18 08:00 08:23 09:00 11:00 Temp 97.5 97.5 Pulse 77 Resp 18 B/P (MAP) 144/88 (106) Pulse Ox 98 O2 Delivery Room Air Room Air Room Air Room Air 02/17/18 02/17/18 12:04 12:17 Pulse 77 B/P (MAP) 144/88 O2 Delivery Room Air Intake and Output 02/16/18 02/16/18 02/17/18 15:00 23:00 07:00 Intake Total 0 ml Balance 0 ml DEXTER REYES MD Feb 17, 2018 14:10
[2018-02-17 15:00] VITALS: BP 138/85
[2018-02-17] MEDS ORDERED: WARFARIN 5 MG TABLET. PO SCH (16:00)
--- NOTE | 2018-02-17 17:40 | PDOC ---
Subjective: Subjective: Patient was seen today. No acute events over night. She has mild left lower quadrant abdominal pain. She has not had bowel movement over night . No hematemesis ,melena or hematochezia. No fever, chills or sweating. No other acute symptoms. Objective: Vital Signs: Vital Signs Date Time Temp Pulse Resp B/P (MAP) Pulse Ox O2 Delivery O2 Flow Rate FiO2 02/17/18 17:17 Room Air 02/17/18 15:00 98.2 71 18 138/85 (102) 97 98.2 Labs: Laboratory Tests Test 02/16/18 20:28 02/17/18 07:38 02/17/18 10:58 02/17/18 16:37 Glucose (Fingerstick) 136 mg/dL (70-99) 325 mg/dL (70-99) 280 mg/dL (70-99) 198 mg/dL (70-99) PE: GEN: NAD HEENT: Atraumatic, PERRLA LUNGS: CTAB HEART: RRR, no murmurs ABD: Mild direct tenderness in the LLQ area. No guarding or rebound tenderness. EXTREMITY: No edema SKIN: No rashes, no jaundice NEURO/PSYCH: A & O 3 A/P: 42 years old female patient with past medical history of metabolic syndrome with obesity, hyperlipidemia and diabetes mellitus. She has also history of hypercoagulability with Factor V Leiden complicated by DVT/PE. She has been on chronic anticoagulation with Coumadin. patient admitted with 'after presented with left lower quadrant abdominal pain. Imaging of the abdomen with CTA ruled out ischemic colitis. * Left lower quadrant abdominal pain. CTA ruled out ischemic colitis or other acute process. * Hepatomegaly: Likely related to underlying NAFLD. LFTs checked in this admission with in normal limit. Recommendations: * No evidence of ischemic colitis or other acute process on imaging of abdomen with CT. * Advance diet as tolerated. * Supportive care with pain management. * Bowel regimen: Miralax 17gram 1-2 time per day as needed. * Advise weight reduction with diet and exercise. * Follow up with GI for colonoscopy as out patient as scheduled before. * Patient can be discharged from GI stand point. * GI will be available for any Q's. Thank you for involving us in the care of this patient. KEVIN NAVARRO MD Feb 17, 2018 17:40
[2018-02-17 19:00] VITALS: BP 151/95
[2018-02-17] MEDS ORDERED: INSULIN GLARGINE 300 UNITS/3 ML INSULN.PEN. SQ SCH (21:00)
[2018-02-17] MEDS: ATORVASTATIN CALCIUM 40 MG TABLET. PO SCH (22:39)
[2018-02-17 23:00] VITALS: BP 132/74
[2018-02-18 03:00] VITALS: BP 145/67
[2018-02-18 04:52] LABS: BASO % 0 % (0-3); EOS # 0.1 x10^3/uL (0.0-0.7); EOS % 2 % (0-3); HEMATOCRIT 32.7 % (36.0-47.0); HEMOGLOBIN 11.5 g/dL (12.0-15.5); LYMPH # 1.8 x10^3/uL (1.0-4.8); LYMPH % 35 % (24-48); MEAN CORPUSCULAR HEMOGLOBIN 29 pg (25-35); MEAN CORPUSCULAR HGB CONC 35 g/dL (31-37); MEAN CORPUSCULAR VOLUME 84 fL (79-100); MONO # 0.4 x10^3/uL (0.0-1.1); MONO % 7 % (0-9); NEUT # 2.8 x10^3uL (1.8-7.7); NEUT % 55 % (31-73); PLATELET COUNT 209 x10^3/uL (140-400); RED BLOOD COUNT 3.89 x10^6/uL (3.50-5.40); RED CELL DISTRIBUTION WIDTH 13.2 % (11.5-14.5); WHITE BLOOD COUNT 5.1 x10^3/uL (4.0-11.0)
[2018-02-18] MEDS: IV NORMAL SALINE 1000ML BAG 1,000 ML IV SCH (05:07)
[2018-02-18 05:18] LABS: CALCIUM 8.6 mg/dL (8.5-10.1); CREATININE 0.7 mg/dL (0.6-1.0); GFR 91.8; POTASSIUM 3.5 mmol/L (3.5-5.1)
[2018-02-18 07:00] VITALS: BP 144/91
[2018-02-18] MEDS ORDERED: NYSTATIN TOPICAL POWDER 15GM BOTTLE. TP SCH (09:00)
[2018-02-18] MEDS: PANTOPRAZOLE 40 MG TABLET.DR. PO SCH (09:29)
[2018-02-18] MEDS: LISINOPRIL 10 MG TABLET PO SCH (09:29)
[2018-02-18] MEDS: INSULIN LISPRO 300 UNITS/3 ML INSULN.PEN. SQ SCH ×4 (09:36→12:22)
[2018-02-18] MEDS: MORPHINE SULFATE 2 MG/ML VIAL. IV PRN (09:58)
[2018-02-18 11:00] VITALS: BP 139/81
[2018-02-18] MEDS ORDERED: DICY10CA3 PO (12:03)
[2018-02-18] MEDS ORDERED: Pantoprazole PO (12:03)
[2018-02-18] MEDS ORDERED: ENOX120D3 SQ (12:03)
[2018-02-18] MEDS ORDERED: TRAM50TA PO (12:04)
[2018-02-18] MEDS ORDERED: FLUCONAZOLE 100 MG TABLET. PO ONE (13:30)
--- NOTE | 2018-02-18 14:15 | PDOC3 ---
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 pt was dced by me 1 week ago for similar symptoms. She said since dc, abd pain was better 2/10. till Wednesday, She started to have severe diffuse abd pain, dull, 8/10, no radiation. also has multiple times N/V , with bright red blood. also has loose BM with some bright red blood clots. Hb stable in ER 14, and 13 today. no fever, chills, cough, sob. has been taking warfarin for h/o dvt, PE, last time 2ys ago, factor 5 leiden. INR IN ER 1. abd ct in ER wo contrast non remarkable. CT Angiogram neg. plan to DO GES, but cannot do till Wednesday due to kristen. pt has no vomiting in Hosp, some nausea, eats ok, no BM in hosp. she doesnot wanna wait till Wednesday. wants go home today. advance diet and if ok can go home later. cont lovenox bid till inr 2-3, with warfarin. dc time 35min. tramadol prescribed. General: Alert, Oriented X3, Cooperative Heart: Regular rate, Normal S1, Normal S2 Lungs: Clear Abdomen: Normal bowel sounds, Soft, Other (diffuse middle abd mild tenderness) Extremities: No clubbing, No cyanosis Skin: No rashes Disposition home CONDITION AT DISCHARGE: Improved Scheduled Enoxaparin Sodium (Enoxaparin Sodium), 110 MG SQ Q12HR Insulin Glargine,Hum.rec.anlog (Lantus Solostar), 66 UNIT SQ QHS, (Reported) Polyethylene Glycol 3350 (Polyethylene Glycol 3350), 17 GM PO BID Quinapril/Hydrochlorothiazide (Quinapril-Hctz 10-12.5 Mg Tab), 1 EACH PO DAILY, (Reported) Rosuvastatin Calcium (Crestor), 1 TAB PO DAILY, (Reported) [Pantoprazole], 40 MG PO DAILYAC Scheduled PRN Clonazepam (Clonazepam), 1 TAB PO PRN DAILY PRN for ANXIETY / AGITATION, ( Reported) Dicyclomine Hcl (Dicyclomine Hcl), 10 MG PO QID PRN for abdominal pain Tramadol Hcl (Tramadol Hcl), 50 MG PO PRN Q6HRS PRN for MILD TO MODERATE PAIN Discontinued Medications Candesartan Cilexetil (Atacand), 1 TAB PO DAILY, (Reported) Eletriptan Hbr (Relpax), 20 MG PO, (Reported) Enoxaparin Sodium (Enoxaparin Sodium), 100 MG SQ Q12HR Metoclopramide Hcl (Reglan), 10 MG PO TIDWMEALHC, (Reported) Pregabalin (Lyrica), 50 MG PO BID, (Reported) Sertraline Hcl (Zoloft), 1 TAB PO DAILY, (Reported) DEXTER REYES MD Feb 18, 2018 14:15
== END 2018-02-18 15:35 | disposition home or self-care (01) | DRG 378 ==
LOC: ER 20:45 → 5 NORTH 23:00
PROVIDERS: ADMIT Internal Medicine; ATTEND Internal Medicine
DX: K92.1 Melena (principal); D68.51 Activated protein C resistance; R04.2 Hemoptysis; E11.65 Type 2 diabetes mellitus with hyperglycemia; E66.01 Morbid (severe) obesity due to excess calories; E78.5 Hyperlipidemia, unspecified; E88.81 Metabolic syndrome and other insulin resistance; G43.909 Migraine, unspecified, not intractable, without status migrainosus; I10 Essential (primary) hypertension; K59.00 Constipation, unspecified; R58 Hemorrhage, not elsewhere classified; K76.0 Fatty (change of) liver, not elsewhere classified; Z79.01 Long term (current) use of anticoagulants; Z79.4 Long term (current) use of insulin; Z83.3 Family history of diabetes mellitus; Z86.711 Personal history of pulmonary embolism; Z86.718 Personal history of other venous thrombosis and embolism; Z90.49 Acquired absence of other specified parts of digestive tract; Z88.0 Allergy status to penicillin; Z88.8 Allergy status to other drugs, medicaments and biological substances; Z79.899 Other long term (current) drug therapy; Z98.51 Tubal ligation status; Z68.38 Body mass index [BMI] 38.0-38.9, adult
CPT/HCPCS: 36415; 74174; 74176; 80048; 80053; 81001; 81025; 82274; 82962; 85025; 85610; 85730; 86850; 86900; 86901; 87086; 96361; 96374; C9113; J1650; J1815; J2270; J7030; J7040; Q9967; 99285-25

== ENCOUNTER → 2018-03-11 | Day surgery (SDC) | payer BC ==
[~2018-03-11] MED LIST changes: +DICY10CA3 PO; +ENOX120D3 SQ; +HYDROmorphone 2 MG/ML VIAL IV PRN; +IV RINGERS,LACTATED 1000ML 1,000 ML IV SCH; +LIDOCAINE 1% PF 2 ML VIAL. ID PRN; +LIDOCAINE 1% PF 2 ML VIAL. ONE; +METF500T16 PO; +MORPHINE SULFATE 2 MG/ML VIAL. IV PRN; +ONDANSETRON PF 4 MG/2 ML VIAL. IV PRN; +PROCHLORPERAZINE 10 MG/2 ML VIAL. IV PRN; +PROPOFOL 40 ML IV ONE; +Pantoprazole PO; +TRAM50TA PO; +WARF7.5T45 PO; +fentaNYL PF VIAL 100 MCG/2 ML VIAL IV PRN
[2018-03-11 08:49] LABS: U PREG PATIENT NEGATIVE (NEG)
[2018-03-11 10:21] VITALS: BP 133/85
--- NOTE | 2018-03-11 10:54 | CONS ---
DATE OF CONSULTATION: 03/11/2018 REASON FOR CONSULTATION: Left lower quadrant abdominal pain, abnormal CAT scan, possible colitis. HISTORY OF PRESENT ILLNESS: A 42-year-old female whose past medical history is significant for diabetes, hyperlipidemia, status post cholecystectomy and tubal ligation is seen for colonoscopy. Recent stay with abnormal CAT scan revealed possible colitis. She is also known to have factor V deficiency, and she is here today for surveillance study. PAST MEDICAL HISTORY: Factor V deficiency, diabetes, hypertension, hyperlipidemia, status post cholecystectomy and tubal ligation. ALLERGIES: PENICILLIN, PROPOXYPHENE AND VANCOMYCIN. MEDICATIONS: Include insulin, metformin, polyethylene glycol, quinapril, Crestor, tramadol, warfarin and Protonix. FAMILY AND SOCIAL HISTORY: Nonsmoker, nondrinker. REVIEW OF SYSTEMS: Per records. PHYSICAL EXAMINATION: GENERAL: Reveals a well-nourished, well-developed female who is alert, cooperative, is in mild distress. VITAL SIGNS: Temperature is 97.9, pulse 94, respirations 20. HEENT: Reveals normocephalic, atraumatic head. Pupils and extraocular muscles are not tested. Sclerae anicteric. NECK: Supple. LUNGS: Clear. CARDIOVASCULAR: Reveals an S1, S2 without S3, S4 or appreciable murmur. ABDOMEN: Soft abdomen, normal bowel sounds without appreciable hepatosplenomegaly. EXTREMITIES: Reveals no cyanosis, clubbing or edema. IMPRESSION: Abnormal CAT scan, left lower quadrant abdominal pain, possible colitis. Differential includes diverticular disease, new onset of inflammatory bowel disease and colon cancer. Surveillance colonoscopy is recommended. WINIFRED GONZALES MD DR: LORI/gelacio JOB#: [id number] / [id number]
--- NOTE | 2018-03-14 13:09 | PATHOLOGY ---
[facility] Accession Number: [id number] . 01 Material submitted: . RANDOM COLON BIOPSY . 01 Clinical history: . Abdominal pain, diarrhea, Hx colitis . 02 Diagnosis: Colonic mucosa, random colon biopsy: - No significant pathologic abnormalities. (JPM:bird; 03/14/2018) QMS/03/14/2018 . 02 Comment: Sections of the random colon biopsy reveal multiple segments of colonic mucosa containing a few mucosa-associated lymphoid aggregates. There is no evidence of a chronic destructive colitis, lymphocytic colitis, or collagenous colitis. There is no dysplasia or evidence of malignancy. (JPM:bird; 03/14/2018) . 02 Electronically signed: . Edin Mcdowell MD, Pathologist NPI- [id number] . 01 Gross description: . Received in formalin labeled "A[place]a Mark, random colon BX," are multiple segments of nelson soft tissue measuring 1.8 x 0.6 x 0.2 cm in aggregate dimensions. The specimen is filtered and entirely submitted in cassette A1. (TSD; 03/11/2018) TOB/TOB . 02 Pathologist provided ICD-10: R10.9, R19.7, Z87.19 . 02 CPT . 382593 Specimen Comment: A courtesy copy of this report has been sent to Specimen Comment: [phone]. Specimen Comment: Report sent to Performed at: 01 [facility] [address] [facility] [address], [place] [id number] MD Pedro Burk MD Phone: [phone] Performed at: 02 [facility] [address] [place], [place] [id number] MD Edin Mcdowell MD Phone: [phone]
== END | disposition home or self-care (01) ==
LOC: SURG 08:10
PROVIDERS: ATTEND Internal Medicine Gastroenterology
DX: K64.0 First degree hemorrhoids (principal); I10 Essential (primary) hypertension; E11.9 Type 2 diabetes mellitus without complications; E78.5 Hyperlipidemia, unspecified; Z90.49 Acquired absence of other specified parts of digestive tract; Z98.51 Tubal ligation status; D68.2 Hereditary deficiency of other clotting factors; Z88.0 Allergy status to penicillin; Z88.1 Allergy status to other antibiotic agents; Z88.8 Allergy status to other drugs, medicaments and biological substances; Z79.4 Long term (current) use of insulin; Z79.84 Long term (current) use of oral hypoglycemic drugs; Z79.899 Other long term (current) drug therapy; Z91.018 Allergy to other foods
CPT/HCPCS: 45380; 81025; 88305; J2704